=== PATIENT | male | born 1935 | race Caucasian/White ===

== ENCOUNTER 2016-12-19 13:41 | Outpatient (CLI) | payer OTHER ==
[2016-12-19 14:48] LABS: CREATININE 0.8 mg/dL (0.7-1.3); GLOMERULAR FILTRATION RATE > 60
[2016-12-19] MEDS ORDERED: GADOBUTROL 10 ML VIAL IVP ONE (15:08)
[2016-12-19] MEDS ORDERED: NALOXONE HCL 0.4 MG/ML INJ ONE (15:09)
[2016-12-19] MEDS ORDERED: FLUMAZENIL 0.5 MG/5 ML MDV IVP ONE (15:09)
[2016-12-19] MEDS ORDERED: fentaNYL 100 MCG/2 ML INJ ONE (15:10)
[2016-12-19] MEDS ORDERED: MIDAZOLAM 2 MG/2 ML VIAL ONE (15:10)
[2016-12-19] MEDS ORDERED: ONDANSETRON 4 MG/2 ML VIAL IVP PRN (19:17)
== END 2016-12-19 18:50 | disposition home or self-care (01) ==
LOC: FIMAGING 13:41
PROVIDERS: ATTEND Neurological Surgery
DX: G20 Parkinson's disease (principal); R25.1 Tremor, unspecified; J01.00 Acute maxillary sinusitis, unspecified
CPT/HCPCS: 70552; A9585; J2250; J3010; J2310

== ENCOUNTER → 2016-12-27 | Day surgery (SDC) | payer OTHER ==
[~2016-12-27] MED LIST: ALBUMIN 5% 250 ML BOTTLE IV ONE; BACITRACIN 50,000 UNITS/10 ML SYR IRR ONE; BUPIVACAINE/EPI 0.25% 30 ML SDV ONE; CEFUROXIME 1,500 MG in NS 50 ML IV ONE; DEXAMETHASONE 4 MG/ML VIAL ONE; DEXMEDETOMIDINE HCL 200 MCG/2 ML VIAL IV ONE; ENALAPRILAT DIHYDRATE 1.25 MG/ML VIAL ONE; GLYCOPYRROLATE 0.2 MG/1 ML VIAL ONE; LIDOCAINE 2% 5 ML SDV ONE; ONDANSETRON 4 MG/2 ML VIAL ONE; PROPOFOL/EMULSION 500 MG/50 ML BOTTLE IV ONE; THROMBIN (BOVINE) 20,000 UNIT VIAL TP ONE; fentaNYL 100 MCG/2 ML INJ ONE; hydrALAZINE 20 MG/ML VIAL ONE
== END | disposition home or self-care (01) ==
LOC: UNDOADMIN 06:04 → FSGY 06:04 → F3N 06:04 → EDSTATUS 07:15
PROVIDERS: ATTEND Neurological Surgery
DX: G20 Parkinson's disease (principal); Z53.9 Procedure and treatment not carried out, unspecified reason
CPT/HCPCS: J0360; J0697; J1100; J2405; J2704; J3010; P9041

== ENCOUNTER 2016-12-28 05:40 | Observation (INO) | payer OTHER ==
[2016-12-28] MEDS ORDERED: CEFUROXIME 1,500 MG in NS 50 ML IV ONE (06:00)
[2016-12-28] MEDS ORDERED: ALBUMIN 5% 250 ML BOTTLE IV ONE (06:22)
[2016-12-28] MEDS ORDERED: LIDOCAINE 1% 2 ML INJ ONE (06:24)
[2016-12-28] MEDS ORDERED: THROMBIN (BOVINE) 20,000 UNIT VIAL TP ONE (06:42)
[2016-12-28] MEDS ORDERED: LIDOCAINE 1% 5 ML SDV ID PRN (06:56)
[2016-12-28] MEDS ORDERED: LR 1,000 ML IV ONE (06:56)
[2016-12-28 07:01] LABS: INR 0.96 (0.83-1.16); PROTIME(PATIENT) 12.7 SEC (12.0-15.0)
[2016-12-28] MEDS ORDERED: ENALAPRILAT DIHYDRATE 1.25 MG/ML VIAL ONE (07:13)
[2016-12-28] MEDS ORDERED: niCARdipine/NACL 200 ML IV SCH (07:30)
[2016-12-28] MEDS ORDERED: ENALAPRILAT DIHYDRATE 1.25 MG/ML VIAL IVP ONE (07:30)
[2016-12-28] MEDS ORDERED: BACITRACIN 50,000 UNITS/10 ML SYR IRR ONE (07:41)
[2016-12-28] MEDS ORDERED: RANITIDINE 50 MG/2 ML VIAL ONE (08:04)
[2016-12-28] MEDS ORDERED: ONDANSETRON 4 MG/2 ML VIAL IVP PRN (08:15)
[2016-12-28] MEDS ORDERED: BISACODYL 10 MG SUPP PR PRN (08:15)
[2016-12-28] MEDS ORDERED: POLYETHYLENE GLYCOL 3350 17 GM PKT PO PRN (08:15)
[2016-12-28] MEDS ORDERED: ACETAMINOPHEN 325 MG TAB PO PRN (08:15)
[2016-12-28] MEDS ORDERED: LACTULOSE 20 GM/30 ML UDCUP PO PRN (08:15)
[2016-12-28] MEDS ORDERED: HYDROmorphONE/DILAUDID 1 MG/ML SYR IVP PRN (08:15)
[2016-12-28] MEDS ORDERED: NS W/ 20 KCl/L 1,000 ML IV SCH (08:15)
[2016-12-28] MEDS ORDERED: MAGNESIUM HYDROXIDE 30 ML UDCUP PO PRN (08:15)
[2016-12-28] MEDS ORDERED: HYDROCODONE/APAP 5/325 TAB PO PRN (08:19)
[2016-12-28] MEDS ORDERED: NON-FORMULARY NEW DRUG (Metformin Hcl [Metformin Hcl Er] 1,000 MG) PO SCH (09:00)
--- NOTE | 2016-12-28 11:36 | GPN ---
[f rep st] PROCEDURE NOTE DATE OF PROCEDURE: 12/28/2016 PREOPERATIVE DIAGNOSIS: Parkinson disease. POSTOPERATIVE DIAGNOSIS: Parkinson disease. PROCEDURE PERFORMED: Intraoperative functional subcortical mapping by microelectrode recording and stimulation. COMPLICATIONS: None. INDICATIONS FOR PROCEDURE: Determination of optimal electrode lead placement for deep brain stimula tion therapy for Parkinson disease to the STN. DESCRIPTION OF PROCEDURE: A mainor hole was drilled on the left side and incision made. The arch was then arranged with coordinates calculated from the MRI and CT scan of the head. X is 111.5, Y 93.5 , Z 124.0, ring 73, arch 119.2. A central and anterior microelectrode was then slowly advanced into the brain. There was evidence of the anterior tract entering STN at 6.4 above target. There was c hange with passive range of motion of the shoulder with stimulation at 5.3 above target. We exited STN in the anterior tract at approximately 1 below target and entered the substantia nigra. For the central tract, we had evidence of entering STN at 3.5 and exited STN at 1 below target. Due to the excellent recordings, we then proceeded with macro stimulation. The patient had no side effects up to 4.2. We then placed the lead and proceeded with test stimulation. At 0 negative, the patient h ad no side effects up to 3.5. At 1 negative, the patient had no side effects up to 3.5. At 2 negat marci, the patient had no side effects up to 3.5. At 3 negative, the patient had no side effects up t o 3.5. There was evidence of improved hand movements at 1 negative at 2.0 amplitude. Due to the mi croelectrode recordings obtained and test stimulation, we elected to place the lead at this location at the anterior tract with the bottom of the lead at target. /[id number]/MODL
[2016-12-28] MEDS ORDERED: hydrALAZINE 20 MG/ML VIAL ONE (12:51)
--- NOTE | 2016-12-28 13:19 | POSTOPPROG ---
Post Op Note Date of Operation: 12/28/16 Surgeon: Jennifer Miller Acquisition Lead: Leslie Osborne PA-C Anesthesia: IV Sedation Pre-op Diagnosis: Parkinson's Post-op Diagnosis: Parkinson's Procedure: Left STN DBS lead placement Inf/Abcess present in the surg proc area at time of surgery?: No Depth: Deep Incisional (Fascial) EBL: Minimal Complications: none A/P Assessment: 81 yo male s/p left STN DBS lead placement Plan: - neuro checks - pain contol - postop head CT pending - maintain SBP < 140, hydralazine ordered prn. If uncontrolled, will need to be transferred to SDU for nicardipine drip - PT/OT - dispo: hopefully home tomorrow Exam Opens eyes to voice. PERRL Moving all extremities Incision with dressing c/d/i
--- NOTE | 2016-12-28 13:37 | GOP ---
[f rep st] OPERATIVE REPORT DATE OF OPERATION: 12/28/2016 SURGEON: Jennifer Miller DO NEUROSURGEON: Jennifer Miller DO. LOCOMOTIVE OILER: None. PREOPERATIVE DIAGNOSIS: Idiopathic Parkinson disease. POSTOPERATIVE DIAGNOSIS: Idiopathic Parkinson disease. PROCEDURE PERFORMED: 1. Left deep brain stimulator lead placement with Medtronic 3389 lead to STN nucleus. 2. Stealth stereotaxis. 3. Impedances. FINDINGS: SPECIMENS: None. ESTIMATED BLOOD LOSS: 20 mL. INDICATIONS: This is an 81-year-old male with idiopathic Parkinson disease who underwent a multidis ciplinary team evaluation and was found to be a good candidate for staged STN deep brain stimulation . DESCRIPTION OF PROCEDURE: He was identified, consented, sites were marked, brought to the operating room, anesthetized under local with MAC. Hair was clipped with the OR clippers and was cleansed wi th ChloraPrep using bacitracin ointment. On the pin sites, we anesthetized the Leksell pin sites wi th 0.25% Marcaine with epinephrine, placed the Leksell frame stereotactically, took him downstairs, performed a Leksell stereotactic CT with a localizer box, brought him back upstairs, and merged it w ith the preoperative plan. The AC-PC distance was 28.72. The Stealth CT localizer box target was an X of -12.06, a Y of -2.82, and a Z of -3.79. Entry point of X of -53.23, a Y of 37.43, and a Z of 61.01. This corresponded to 32.4 degrees off midsagittal, 58.2 degrees off midaxial. This coordinated with a Leksell frame coordinates of 111.5 X, Y 93.5, Z 124, ring 73 degrees, arc 119.1 degrees. This was the predicted 0.6 mm. We then placed the O-arm and the Stealth stereotactic box and performed an O-arm 2 spin for registration. This cr eated an X of -12.13, a Y of -2.84, and a Z of -3.89 with also the predicted error of and a Leksell frame coordinates of 111.5 on the X, Y of 93.5, Z of 124, ring of 73, and arc of 119.2. We elected to use the O-arm to spin coordinates. All pressure points were appropriately padded, and the Leksell frame had been connected. He was pre pped and draped in the usual sterile fashion. All Leksell frame coordinates were set and triple marin cked by all providers in the room. Incision site was marked using the Leksell frame coordinates and a half-henderson incision was anesthetized with 0.25% Marcaine with epinephrine. Incision was made with a 10 blade. Hemostasis was obtained with bipolar cautery and Coleen clips. We used a periosteal el evator to elevate the periosteum, open, created a bone jeanne using the Leksell frame coordinates, cre ated a pest control pilot hole, and then a 14 mm bur hole which was waxed, verified to be in appropriate position . A stem lock device was placed using the 5 mm Synthes screws. The clipping device verified the cl ip and lock. We then opened the dura with an 11 blade, coagulating the dura, and then underlying cortex for the c orticotomy. We then placed a center and a 2 mm anterior tract with cannula and stylet, placed Gelfo am and DuraSeal, placed a microelectrode, performed microelectrode recording, got an excellent 6-1/2 , almost 7 mm run on the anterior tract with good driving. Macrostimulation revealed no side effect s. Some control and we elected to leave the lead here with the bottom of the bottom contacted targe t. Again please refer to Leslie Osborne's LULA dictation. We then drove to target, removed the jennifer roelectrode, placed the stylet in the center tract, measured and placed the lead, placed it into the anterior tract, tested each contact. All impedances were good. Tested each contact, got good ther apeutic effect, low-to-no side effects, at multiple contacts, elected to leave the lead here. It wa s difficult to assess tremor; however, we did get improvement of bradykinesia, rigidity. Low-to-no side effects. Elected to leave the lead here. Retracted the cannula, locked it into place using th e clipping mechanism, clipped and locked the device. Brought the stylet out, brought it down and ou t the cannula, placed it into the groove. Performed a stereotactic spin and at some point, there wa s migration. Elected to pull the lead back slightly as it had migrated deep, approximately 3 mm. T ook an x-ray, removed the cap, opened the lead under fluoro, pulled the lead back 3 mm, measured thi s, locked the cap again, took another spin and it was in a better position. Placed the cap, locked it, copiously irrigated with over a liter of bacitracin-infused saline. Placed the boot over the le ad extension, placed the extension, locked the lead extension, brought the boot over the lead extens ion complex, and tied into position with 2-0 silk ties in 2 positions. Tunneled posterior with the periosteal elevator and then anesthetized the stab incision posteriorly with 0.25% Marcaine with epi nephrine. Tunneled posterior to anterior, brought the extension out, coiled it around the lead and clipped it at the skin, copiously irrigated again with over a liter of saline, closed the galea with 2-0 Vicryl pop-offs. The skin was closed with a 3-0 running nylon. The wound was dressed with Xer oform gauze and Telfa stapled down. The frame was removed. The final spin reveal the lead in good position as relative to the anterior plan. There were no complications. LULA: Leslie Osborne PA-C. Please refer to her dictation for all LULA data. FLUIDS: 300 mL crystalloid. URINE OUTPUT: 350 mL. DRAINS: None. COMPLICATIONS: None. /[id number]/MODL
[2016-12-28] MEDS ORDERED: CEFUROXIME 1,500 MG in NS 50 ML IV SCH (14:00)
[2016-12-28] MEDS ORDERED: CARBIDOPA/LEVODOPA 25 MG/100 MG TAB PO SCH (16:00)
[2016-12-28 16:02] VITALS: RESP 16
[2016-12-28] MEDS: LISINOPRIL 10 MG TAB PO SCH (16:21)
[2016-12-28] MEDS: METOPROLOL SUCCINATE XR 50 MG TAB PO SCH (16:21)
[2016-12-28] MEDS: MULTIVITAMINS 1 EACH TAB PO SCH (16:22)
[2016-12-28] MEDS: SENNOSIDES/DOCUSATE SODIUM TAB PO SCH ×2 (16:22→20:48)
[2016-12-28] MEDS: PANTOPRAZOLE SODIUM 40 MG TAB PO SCH (16:22)
[2016-12-28] MEDS: CEFUROXIME 1,500 MG in NS 50 ML IV SCH ×2 (16:54→16:58)
[2016-12-28] MEDS: CARBIDOPA/LEVODOPA 25 MG/100 MG TAB PO SCH (18:20)
[2016-12-28] MEDS ORDERED: NON-FORMULARY NEW DRUG (Metformin Hcl [Metformin Hcl Er] 500 MG) PO SCH (21:00)
[2016-12-28] MEDS ORDERED: ATORVASTATIN CALCIUM 40 MG TAB PO SCH (21:00)
[2016-12-28] MEDS ORDERED: metFORMIN SR 500 MG TAB PO SCH (21:00)
[2016-12-29] MEDS: hydrALAZINE 20 MG/ML VIAL IVP PRN ×2 (01:13→07:13)
[2016-12-29] MEDS: METOPROLOL SUCCINATE XR 50 MG TAB PO SCH (03:56)
--- NOTE | 2016-12-29 07:08 | NEUSURGPN ---
Date of Surgery: 12/28/16 Post Op Day: 1 Assessment/Plan: Assessment: 81 yo male s/p left STN DBS lead placement POD #1 Plan: -s/p DBS placement: doing well this am with minimal complaints -pt had double vision after surgery last night and CT was done that showed no acute ICB -neuro checks -continue current pain contol -maintain SBP < 140, hydralazine ordered prn. If uncontrolled, will need to be transferred to SDU for nicardipine drip -PT/OT-once cleared this am we are planning to remove dressing and dc home -dispo: hopefully home later today -pt and understand and agree -seen by Dr Miller Subjective: Awake and alert. NAD. Eating/drinking and voiding. No f/c/n/v/d. Objective: AAO x 3, PERRLA/EOMI no droop follows all commands CDI Moving all extremities Incision with dressing Neuro Check Frequency: per routine Urinary Catheter in Place: No Catheter Insertion Date: 12/28/16 - Physician Discussed Patient with : Paul Patient Seen by : Paul Neurosurgery Physical Exam - Vitals, I&O, Labs I and O 12/28/16 12/29/16 12/30/16 05:59 05:59 05:59 Intake Total 700 Output Total 820 Balance -120 Weight 68.039 kg 68.039 kg Intake: Oral (ml) 700 Output: Urine (ml) 800 Urinal 800 Estimated Blood Loss (ml) 20 Other: Intake Quantity Yes Sufficient Number of Voids Incontinence 1 Urinal 2 Vital Signs Temp Pulse Resp BP Pulse Ox 36.8 C 61 16 149/60 H 98 12/29/16 03:32 12/29/16 03:56 12/29/16 00:00 12/29/16 03:56 12/29/16 03:32 ICD10 Worksheet Patient Problems: Problems Problem Status Onset S/P deep brain stimulator placement Acute - ICD10 Problem Qualifiers (1) S/P deep brain stimulator placement
[2016-12-29] MEDS ORDERED: CARBIDOPA/LEVODOPA 25 MG/100 MG TAB PO SCH (08:00)
[2016-12-29] MEDS: LISINOPRIL 10 MG TAB PO SCH (08:34)
[2016-12-29] MEDS: MULTIVITAMINS 1 EACH TAB PO SCH (08:35)
[2016-12-29] MEDS: SENNOSIDES/DOCUSATE SODIUM TAB PO SCH (08:35)
[2016-12-29] MEDS: PANTOPRAZOLE SODIUM 40 MG TAB PO SCH (08:35)
[2016-12-29] MEDS ORDERED: metFORMIN SR 500 MG TAB PO SCH (09:00)
[2016-12-29 11:17] VITALS: BP 159/61; PULSE 62; TEMP 98.3; O2SAT 90
[2016-12-29] MEDS ORDERED: CEFUROXIME 1,500 MG in NS 50 ML IV ONE (12:00)
--- NOTE | 2016-12-29 12:51 | PDIAF ---
- Diagnosis Diagnosis: s/p lead placement for DBS Code Status: Full Code - Medication Management Discharge Medications: Medications to Continue on Transfer Atorvastatin Calcium [Lipitor 40 mg (*)] 40 mg PO HS 08/31/16 [Last Taken ] Carbidopa/Levodopa [Carbidopa-Levodopa 25-100 Tab] 1 each PO TID@08,,18 [Last Taken 12/27/16 20:00] Herbals/Supplements -Info Only 1 ea PO DAILY 08/31/16 [Last Taken 12/18/16] Lisinopril [Zestril 10 mg (*)] 10 mg PO DAILY 08/31/16 [Last Taken 12/18/16] Melatonin [Melatonin 3 MG (*)] 10 mg PO HS 08/31/16 [Last Taken 12/18/16] Metformin HCl [Metformin HCl ER] 1,000 mg PO DAILY 08/31/16 [Last Taken 12/25/16 ] Metformin HCl [Metformin HCl ER] 500 mg PO HS 08/31/16 [Last Taken 12/25/16] Metoprolol Succinate Xr [Toprol Xl 50 mg (*)] 50 mg PO DAILY 08/31/16 [Last Taken 12/27/16 15:00] Multivitamins [Multivitamin (*)] 1 each PO DAILY 08/31/16 [Last Taken 12/18/16] Pantoprazole Sodium [Protonix 40mg (*)] 40 mg PO DAILY 08/31/16 [Last Taken 09/24] rOPINIRole HCL [Requip 2mg (*)] 6 mg PO DAILY@13 08/31/16 [Last Taken 12/27/16] Carbidopa/Levo Cr 50/200Mg [SINEMET CR 50/200 MG (*)] 1 tab PO TID@,,18 [Last Taken 12/27/16 20:00] rOPINIRole HCL [Requip 1mg (*)] 3 mg PO HS 12/28/16 [Last Taken 12/27/16] Acetaminophen [Tylenol 325mg (*)] 650 mg PO Q4HRS PRN #0 tab 12/29/16 [Last Taken Unknown] Carbidopa/Levodopa 25/100Mg [Sinemet 25/100 MG (*)] 2 tab PO DAILY@1300,1800 #0 tab 12/29/16 [Last Taken Unknown] Hydrocodone/APAP 5/325 [[place] 5/325 (*)] 1 - 2 tab PO Q4HRS PRN #30 tab [Last Taken Unknown] Sennosides/Docusate Sodium [Senokot-S] 1 - 2 tab PO BID #30 tab 12/29/16 [Last Taken Unknown] rOPINIRole HCL [Requip 2mg (*)] 2 mg PO HS #0 tab 12/29/16 [Last Taken Unknown] [employer]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 PICC Care - Routine: N/A - Orders Services needed: Registered Nurse, Physical Therapy, Occupational Therapy Oxygen: to keep O2 sat more than 90% Diet Recommendation: no restrictions on diet Diet Texture: Regular Texture Diet Wound Care Instructions: Recheck in [address] Cotter team - Follow Up Care Current Providers and Referrals: Jennifer Miller DO [Doctor of Osteopathy] - (follow up in 2-3 weeks) Etienne Zheng MD [Primary Care Provider] -
[2016-12-29] MEDS: CARBIDOPA/LEVODOPA 25 MG/100 MG TAB PO SCH (13:15)
== END 2016-12-29 14:21 | disposition home health service (06) ==
LOC: INTOOBSV 05:40 → F3N 05:40
PROVIDERS: ADMIT Neurological Surgery; ATTEND Neurological Surgery
PROC: 00K03ZZ Map Brain, Percutaneous Approach (ICD-10-PCS; 2016-12-28)
PROC: 8E09XBF Computer Assisted Procedure of Head and Neck Region, With Fluoroscopy (ICD-10-PCS; 2016-12-28)
PROC: 00H03MZ Insertion of Neurostimulator Lead into Brain, Percutaneous Approach (ICD-10-PCS; principal; 2016-12-28 07:30)
DX: G20 Parkinson's disease (principal); I25.10 Atherosclerotic heart disease of native coronary artery without angina pectoris; E11.9 Type 2 diabetes mellitus without complications; E78.5 Hyperlipidemia, unspecified; I10 Essential (primary) hypertension; G47.33 Obstructive sleep apnea (adult) (pediatric); G25.81 Restless legs syndrome; Z95.1 Presence of aortocoronary bypass graft; Z85.46 Personal history of malignant neoplasm of prostate; Z95.5 Presence of coronary angioplasty implant and graft; Z79.84 Long term (current) use of oral hypoglycemic drugs; Z82.49 Family history of ischemic heart disease and other diseases of the circulatory system
CPT/HCPCS: 61867; 70450; 76001; 97116; 97162; 97166; C1713; G8978; G8979; G8987; G8988; J0360; J0697; J2780; P9041

== ENCOUNTER 2017-01-25 05:47 | Observation (INO) | payer OTHER ==
[2017-01-25] MEDS ORDERED: CEFUROXIME 1,500 MG in NS 50 ML IV ONE (06:00)
[2017-01-25] MEDS ORDERED: BUPIVACAINE/EPI 0.25% 30 ML SDV ONE (06:30)
[2017-01-25] MEDS ORDERED: BACITRACIN 50,000 UNITS/10 ML SYR IRR ONE (06:30)
[2017-01-25] MEDS ORDERED: THROMBIN (BOVINE) 20,000 UNIT VIAL TP ONE (06:30)
[2017-01-25 06:43] LABS: % IMMATURE GRANULYOCYTES 0.7 % (0.0-1.1); ABSOLUTE IMMATURE GRANULOCYTES 0.04 10^3/uL (0.00-0.10); ADD DIFF? NO; ADD MORPH? NO; ADD SCAN? NO; ATYPICAL LYMPHOCYTE FLAG 10 (0-99); FRAGMENT RBC FLAG 0 (0-99); HEMATOCRIT 35.4 % (40.0-51.0); HEMOGLOBIN 12.4 g/dL (13.7-17.5); LEFT SHIFT FLG 0 (0-99); LIPEMIA HEMOLYSIS FLAG 90 (0-99); MEAN CELL HEMOGLOBIN 30.4 pg (27.9-34.1); MEAN CELL VOLUME 86.8 fL (81.5-99.8); MEAN PLATELET VOLUME 8.9 fL (8.7-11.7); PLATELET CLUMPS FLAG 0 (0-99); PLATELET COUNT 156 10^3/uL (150-400); RED BLOOD CELL COUNT 4.08 10^6/uL (4.40-6.38); RED CELL DISTRIBUTION WIDTH 13.7 % (11.5-15.2)
[2017-01-25 06:48] LABS: APTT 30.4 SEC (23.0-38.0); INR 1.05 (0.83-1.16); PROTIME(PATIENT) 13.6 SEC (12.0-15.0)
[2017-01-25] MEDS ORDERED: ENALAPRILAT DIHYDRATE 1.25 MG/ML VIAL ONE ×2 (07:05→08:15)
[2017-01-25] MEDS ORDERED: DEXMEDETOMIDINE HCL 200 MCG/2 ML VIAL IV ONE (07:20)
[2017-01-25] MEDS ORDERED: fentaNYL 100 MCG/2 ML INJ ONE ×2 (07:20→09:56)
[2017-01-25] MEDS ORDERED: PROPOFOL/EMULSION 500 MG/50 ML BOTTLE IV ONE (07:20)
[2017-01-25] MEDS ORDERED: ENALAPRILAT DIHYDRATE 1.25 MG/ML VIAL IVP ONE (07:30)
[2017-01-25] MEDS ORDERED: niCARdipine/NACL 200 ML IV SCH (07:30)
[2017-01-25] MEDS ORDERED: LIDOCAINE 1% 5 ML SDV ID PRN (07:31)
[2017-01-25] MEDS ORDERED: LR 1,000 ML IV ONE (07:31)
[2017-01-25] MEDS ORDERED: epHEDrine SULFATE 10 MG/ML SYR ONE (08:15)
[2017-01-25] MEDS ORDERED: ONDANSETRON 4 MG/2 ML VIAL ONE (08:15)
[2017-01-25] MEDS ORDERED: LIDOCAINE 2% 5 ML SDV ONE (08:15)
[2017-01-25] MEDS ORDERED: hydrALAZINE 20 MG/ML VIAL ONE ×2 (08:15→12:16)
[2017-01-25] MEDS ORDERED: RANITIDINE 50 MG/2 ML VIAL ONE (09:43)
[2017-01-25] MEDS ORDERED: POLYETHYLENE GLYCOL 3350 17 GM PKT PO PRN (09:57)
[2017-01-25] MEDS ORDERED: ONDANSETRON 4 MG/2 ML VIAL IVP PRN (09:57)
[2017-01-25] MEDS ORDERED: HYDROmorphONE/DILAUDID 1 MG/ML SYR IVP PRN (09:57)
[2017-01-25] MEDS ORDERED: LACTULOSE 20 GM/30 ML UDCUP PO PRN (09:57)
[2017-01-25] MEDS ORDERED: MAGNESIUM HYDROXIDE 30 ML UDCUP PO PRN (09:57)
[2017-01-25] MEDS ORDERED: ACETAMINOPHEN 325 MG TAB PO PRN (09:57)
[2017-01-25] MEDS ORDERED: BISACODYL 10 MG SUPP PR PRN (09:57)
[2017-01-25] MEDS ORDERED: NS W/ 20 KCl/L 1,000 ML IV SCH (10:00)
[2017-01-25] MEDS ORDERED: HYDROCODONE/APAP 5/325 TAB PO PRN (10:01)
--- NOTE | 2017-01-25 12:02 | POSTOPPROG ---
Post Op Note Date of Operation: 01/25/17 Surgeon: Jennifer Miller Clinical Research Technician: Leslie Osborne PA-C Anesthesia: GET(General Endotracheal) Pre-op Diagnosis: Parkinson's disease Post-op Diagnosis: Parkinson's disease Procedure: Right STN DBS lead placement Inf/Abcess present in the surg proc area at time of surgery?: No Depth: Deep Incisional (Fascial) EBL: Minimal Plan Plan: 81 yo male s/p right STN DBS lead placement - neuro checks - pain control - advance diet as tolerated - postop head CT pending - maintain SBP < 140 - PT/OT - plan for discharge tomorrow Exam Awake. Alert Following commands Strength full
--- NOTE | 2017-01-25 12:28 | GPN ---
[f rep st] PROCEDURE NOTE DATE OF PROCEDURE: 01/25/2017 PREOPERATIVE DIAGNOSIS: Parkinson's disease. POSTOPERATIVE DIAGNOSIS: Parkinson's disease. PROCEDURE PERFORMED: Intraoperative functional subcortical mapping by microelectrode recording and stimulation. COMPLICATIONS: None. INDICATIONS FOR PROCEDURE: Determination of optimal electrode lead placement for deep brain stimulation therapy for Parkinson's disease to the STN. DESCRIPTION OF PROCEDURE: An incision was made and a mainor hole was drilled on the right side. The arch was then arranged with coordinates calculated from the MRI and CT scan of the head. X is 85.5, Y 91.5, Z 117.5, ring 72, arch 72.6. We ran a central and posterior tract. The microelectrode was slowly advanced into the brain with evidence of cells in the posterior tract at 13 above and center tract at 10 above. There was evidence of entering STN in the center tract at 3 above target. There was change with stimulation with passive range of motion of the shoulder and elbow extension at 2.3 above target in the center tract. At 1.5 below target, we exited STN and entered SNR at 3 below target. There was no evidence of entering STN in the posterior tract. We then proceeded with macro stimulation utilizing the center tract at 1 above target. The patient had tingling in his left hand at 3.5. We decided to map out an anterior tract. There was evidence of entering STN at 4.5; however, exited shortly after. With the microelectrode recordings obtained, we felt that the center tract was the best tract, and then proceeded with test stimulation. Lead was placed. Impedance was checked. The lead was placed at the bottom of the lead at 1.5 below target. At 0 negative, the patient had persistent tingling in the left hand at 2.0 amplitude. At 1 negative, the patient had tingling in the left hand at 3.5 amplitude, with improved bradykinesia and tremor control. At 2 negative, the patient had transient left hand tingling at 3.0 amplitude. At 3 negative, he had no side effects up to 3.5. Due to the microelectrode recordings obtained and test stimulation, we elected to place the lead at this location at 1.5 below target at the center tract. The patient tolerated the surgery well, without complications, and was transferred to the floor. /[id number]/MODL MTDD
--- NOTE | 2017-01-25 13:07 | GOP ---
[f rep st] OPERATIVE REPORT DATE OF OPERATION: 01/25/2017 SURGEON: Jennifer Miller DO PREOPERATIVE DIAGNOSIS: Parkinson's. POSTOPERATIVE DIAGNOSIS: Parkinson's. PROCEDURE PERFORMED: 1. Right deep brain stimulator lead placement with Medtronic 3389 lead to the subthalamic nucleus. 2. Stealth stereotaxis. 3. Microelectrode recording was done by KEZIA Charles. FINDINGS: SPECIMENS: None. ESTIMATED BLOOD LOSS: 20 mL. INDICATIONS: This is an 81-year-old male with a left-sided deep brain stimulator lead placed approx imately 1 month ago, who returns for the right-sided staged lead placement. DESCRIPTION OF PROCEDURE: He was identified, consented. Sites were marked. He was brought to the operating room, anesthetized under local with MAC. Hair was clipped with the OR clippers. Head was cleansed with ChloraPrep. Pin sites were anesthetized with 0.5% Marcaine with epinephrine. Pins w ere dipped in povidone iodine, and the Leksell frame was placed in a stereotactic fashion. He was t aken downstairs, and a stereotactic CT was performed with a localizer box. He was brought back upst airs. This was registered. The target mirrored from the other side was an AC-PC of 28.73 and X of 11.55, a Y of -2.44, and a Z of -4.84. Entry points were an X of 38.19, a Y of 36.16, a Z of 50.44. This corresponded to 25.7 degrees off mid sagittal, 55.1 degrees off mid axial. We then performed a stereotactic 0-arm 2 spin with frame coordinates, and both frame coordinates were fairly similar. We went with the O arm registration. This corresponded to Lekyell frame coordinates of an X of 85 .5, a Y of 91.5, a Z of 117.5, a ring of 72 degrees, an arc of 72.6 degrees. These were all set and triple checked by all providers in the room. He was prepped and draped in the usual sterile fashio n. Incision was marked using the cannula and anesthetized with 0.25% Marcaine with epinephrine. Alexander lf-henderson incision was made. Hemostasis was obtained with bipolar and Coleen clips. We used a periost eal elevator to elevate the periosteum. Oil Field Worker hole was created where the cannula entry point was fo und using Leksell frame coordinates, and then a 14 mm bur hole was performed. Edges were waxed. e Navigus Stimloc device was locked into place using 5 mm Synthes screws. The clipping device was v erified to clip and lock. We opened the dura sharply with an 11 blade. Hemostasis was obtained wit h bipolar cautery. Then introduced a center posterior track, and performed microelectrode recording . Please refer to Leslie Osborne's dictation for all microelectrode recordings. We got a good run with the center track of approximately 4.5 mm of STN with Macrostim, 1 above target with low to no side effects. We did elect to do an anterior track, just to see if we could get a slightly better t rack. So, we drove back up to the top, removed the posterior cannula, replaced it in the anterior t rack, and performed an anterior track. Please again refer. We did not get good STN here and electe d to test the lead here, so we elected to leave the bottom of the bottom contact at 1-1/2 below targ et, and based upon LULA, we then drove to this space, removed the microelectrode, measured and placed the 3389 lead. The lead was then tested for impedances at all contacts, and we tested all contacts . We had excellent programmable lead with low to no side effects and good stimulation effect. We e lected to leave it here, took an x-ray with the bombsights, gently placed the clipping and locking m echanism after having removed the cannula, took another x-ray. The lead had not migrated, locked it into place, removed the stylet, brought the lead down and out, placed it into the groove, placed a cap over the lead, and marked it. Took another x-ray. It had not migrated. Placed the boot over t he lead, placed extension over the lead, protecting each contact. Using the torque wrench, locked i t down. Brought the boot over the lead extension complex, tied into position with 2-0 silk ties at 2 positions. Tunneled posteriorly with the periosteal elevator, anesthetized the stab incision with 0.25% Marcaine with epinephrine. Made a stab incision posterior, tunneled posterior to anterior. Brought the lead extension down and out, cut it at the skin, coiled the lead posterior and around e incision. Took another x-ray of the bombsight. it had not migrated. Performed a stereotactic O- arm spin for lead localization and accuracy. Then, copiously irrigated with over a liter of normal saline. Closed the subcutaneous, galea with 2-0 Vicryl pop-offs. The skin was closed with 3-0 runn ing nylon. The wound was dressed with Xeroform and Telfa stapled down. The frame was removed. Hea d wrap was placed. Patient tolerated procedure well. No complications. FLUIDS: 400 mL crystalloid. URINE OUTPUT: 275 mL. COMPLICATIONS: None. DRAINS: None. /[id number]/MODL
[2017-01-25] MEDS: hydrALAZINE 20 MG/ML VIAL IVP PRN ×2 (14:05→17:02)
[2017-01-25] MEDS: CARBIDOPA/LEVO CR 50 MG/200 MG TAB PO SCH (17:09)
[2017-01-25] MEDS: CEFUROXIME 1,500 MG in NS 50 ML IV SCH (17:10)
[2017-01-25] MEDS ORDERED: NITROGLYCERIN 0.4 MG BTL SL PRN (17:44)
[2017-01-25] MEDS: CARBIDOPA/LEVODOPA 25 MG/100 MG TAB PO SCH (18:01)
--- NOTE | 2017-01-25 20:25 | HOSPPROG ---
Hospitalist Progress Note Assessment/Plan: STAT team called by RN for possible changes in neuro status. I responded. Mr. Suresh is a 81 yo male with h/o Parkinson's disease who underwent left deep brain stimulator lead placed one month ago and was admitted today for right deep brain stimulator lead placement. Post-operatively, his RN was concerned he had a change in his pupil size and decreased mentation. Upon my evaluation, he is awake, alert and oriented. Answers all questions appropriately, though appears a bit tired. Pupils are reactive, left pupil 1 mm larger than right, may be his baseline. There is certainly no pupil dilation or clinical signs of herniation. His vital signs are stable. He is neurologically intact with no new neurodeficits on my exam. Sent for STAT head CT which is unchanged. Discussed case with STAT team members , no other interventions planned. Objective: Vital Signs Temp Pulse Resp BP Pulse Ox 36.6 C 77 16 163/58 H 94 01/25/17 19:26 01/25/17 19:26 01/25/17 19:26 01/25/17 19:26 01/25/17 19:26 Laboratory Results 01/25/17 06:25 01/24/17 01/25/17 01/26/17 05:59 05:59 05:59 Intake Total 1000 Output Total 550 Balance 450 PT 13.6 SEC (12.0-15.0) 01/25/17 06:25 INR 1.05 (0.83-1.16) 01/25/17 06:25 ICD10 Worksheet Patient Problems: Problems Problem Status Onset S/P deep brain stimulator placement Acute
[2017-01-25] MEDS: SENNOSIDES/DOCUSATE SODIUM TAB PO SCH (20:34)
[2017-01-25] MEDS ORDERED: OXYBUTYNIN 5 MG EXT REL TAB PO SCH (21:00)
[2017-01-25] MEDS ORDERED: ATORVASTATIN CALCIUM 40 MG TAB PO SCH (21:00)
[2017-01-25] MEDS ORDERED: NON-FORMULARY NEW DRUG (Metformin Hcl [Metformin Hcl Er] 500 MG) PO SCH (21:00)
[2017-01-25] MEDS ORDERED: metFORMIN SR 500 MG TAB PO SCH (21:00)
[2017-01-26] MEDS: CEFUROXIME 1,500 MG in NS 50 ML IV SCH (00:27)
[2017-01-26] MEDS: hydrALAZINE 20 MG/ML VIAL IVP PRN ×2 (00:27→12:56)
[2017-01-26 08:15] VITALS: RESP 16
[2017-01-26] MEDS: SENNOSIDES/DOCUSATE SODIUM TAB PO SCH (08:22)
[2017-01-26] MEDS: CARBIDOPA/LEVODOPA 25 MG/100 MG TAB PO SCH ×2 (08:23→12:55)
[2017-01-26] MEDS: CARBIDOPA/LEVO CR 50 MG/200 MG TAB PO SCH ×2 (08:23→12:55)
--- NOTE | 2017-01-26 08:52 | NEUSURGPN ---
Assessment/Plan: 81 yo male s/p right STN DBS lead placement - neuro checks- stable -repeat head CT last night for vision complaints last night stable - pain control - maintain SBP < 140 - PT/OT - Can dc home later this afternoon if cleared by therapies -Dressing change later today prior to leaving -Discussed with Dr. Miller Subjective: Patient doing well this morning, had a rough night with some restless legs. Denies pain. Objective: NAD, VSS PERRL, EOMI CN II-XII grossly intact BUE/BLE 5/5- some twitching of right foot visualized Incision - dressed Catheter Insertion Date: 01/25/17 - Physician Discussed Patient with : Paul Neurosurgery Physical Exam - Vitals, I&O, Labs I and O 01/25/17 01/26/17 01/27/17 05:59 05:59 05:59 Intake Total 1350 Output Total 800 Balance 550 Weight 72.575 kg Intake: Oral (ml) 800 IV Intake (ml) 500 IV Infused (ml) 50 Cefuroxime 1,500 mg In Ns 50 50 ml @ 200 mls/hr IV Q8H [facility] Rx#:[id number] Output: Urine (ml) 750 Catheter 350 Urinal 400 Estimated Blood Loss (ml) 50 Other: Intake Quantity Yes Sufficient Number of Voids Urinal 1 Post Void Residual Scan Volume (ml) Urinal 136 Vital Signs Temp Pulse Resp BP Pulse Ox 36.8 C 68 16 159/78 H 92 01/26/17 08:14 01/26/17 08:14 01/26/17 08:14 01/26/17 08:14 01/26/17 08:14 Laboratory Results 01/25/17 06:25 ICD10 Worksheet Patient Problems: Problems Problem Status Onset S/P deep brain stimulator placement Acute
[2017-01-26] MEDS ORDERED: NON-FORMULARY NEW DRUG (Metformin Hcl [Metformin Hcl Er] 1,000 MG) PO SCH (09:00)
[2017-01-26] MEDS ORDERED: PANTOPRAZOLE SODIUM 40 MG TAB PO SCH (09:00)
[2017-01-26] MEDS ORDERED: CLOPIDOGREL BISULFATE 75 MG TAB PO SCH (09:00)
[2017-01-26] MEDS ORDERED: metFORMIN SR 500 MG TAB PO SCH (09:00)
[2017-01-26] MEDS ORDERED: MULTIVITAMINS 1 EACH TAB PO SCH (09:00)
[2017-01-26] MEDS ORDERED: LISINOPRIL 10 MG TAB PO SCH (09:00)
[2017-01-26] MEDS ORDERED: ROPINIROLE HCL PO SCH (09:00)
[2017-01-26] MEDS ORDERED: METOPROLOL SUCCINATE XR 50 MG TAB PO SCH (09:00)
[2017-01-26 12:49] VITALS: BP 153/62; PULSE 76; TEMP 97.8; O2SAT 91
[2017-01-28] MEDS ORDERED: ENOXAPARIN 40 MG/0.4 ML SYR SC SCH (09:00)
--- NOTE | 2017-02-07 11:00 | GDS ---
[f rep st] DISCHARGE SUMMARY ADMITTING DIAGNOSIS: Parkinson disease. DISCHARGE DIAGNOSIS: Parkinson disease. PROCEDURE: Right deep brain stimulator lead placement, January 25. HISTORY OF PRESENT ILLNESS: The patient is an 81-year-old male, who presented to the hospital to pr lula with right-sided DBS lead placement. He underwent a left-sided lead placement approximately 1 month ago. He underwent surgery on January [address] Jennifer Miller, with placement of right deep br ain stimulator lead to the STN. He tolerated the surgery well without complications. Postoperative head CT was completed and was negative for any acute intracranial hemorrhage. He was transferred t o the floor for further observation and close neurological checks. He was seen by physical and occu pational therapy. Once he was tolerating a diet, and voiding without difficulty, pain controlled, a nd medically stable, he was deemed suitable for discharge. He was discharged to home on January 26. DISCHARGE INSTRUCTIONS: Patient was asked to follow up with Dr. Jennifer Miller in 2 weeks for suture removal and wound check. DISCHARGE MEDICATIONS: Continue home dose of oxybutynin, nitroglycerin, ropinirole, Protonix, multi vitamin, metformin, metoprolol, melatonin, lisinopril, Sinemet, atorvastatin. Patient was instructe d to start his Plavix and aspirin on postop day 3, which would be January 28. /[id number]/MODL
== END 2017-01-26 14:59 | disposition home or self-care (01) ==
LOC: INTOOBSV 05:47 → F3E 05:47 → F3N 13:29
PROVIDERS: ADMIT Neurological Surgery; ATTEND Neurological Surgery
DX: G20 Parkinson's disease (principal); I10 Essential (primary) hypertension; I25.10 Atherosclerotic heart disease of native coronary artery without angina pectoris; G47.33 Obstructive sleep apnea (adult) (pediatric); E11.9 Type 2 diabetes mellitus without complications
CPT/HCPCS: 61867; 70450; 76001; 97162; 97166; C1713; G8978; G8979; G8980; G8984; G8985; G8986; J0360; J0697; J1200; J2405; J2704; J2780; J3010

== ENCOUNTER 2017-02-22 05:46 | Inpatient (IN) | payer OTHER ==
[2017-02-22] MEDS ORDERED: LIDOCAINE 1% 2 ML INJ ONE (06:08)
[2017-02-22] MEDS ORDERED: BUPIVACAINE/EPI 0.25% 30 ML SDV ONE (06:53)
[2017-02-22] MEDS ORDERED: BACITRACIN 50,000 UNITS/10 ML SYR IRR ONE ×2 (06:54→07:16)
[2017-02-22] MEDS ORDERED: fentaNYL 100 MCG/2 ML INJ ONE (07:01)
[2017-02-22] MEDS ORDERED: PROPOFOL/EMULSION 500 MG/50 ML BOTTLE IV ONE (07:02)
[2017-02-22] MEDS ORDERED: LR 1,000 ML IV ONE (07:23)
[2017-02-22] MEDS ORDERED: LIDOCAINE 1% 5 ML SDV ID PRN (07:23)
[2017-02-22] MEDS ORDERED: ceFAZolin 2 GM/DEXTROSE 100 ML IV ONE (07:30)
[2017-02-22] MEDS ORDERED: ATROPINE SULFATE 1 MG/10 ML SYR ONE (07:59)
[2017-02-22] MEDS ORDERED: ATROPINE SULFATE 1 MG/ML VIAL ONE (08:18)
[2017-02-22 08:39] LABS: ALANINE AMINOTRANSFERASE 27 IU/L (21-72); ANION GAP 18 mEq/L (8-16); ASPARTATE AMINOTRANSFERASE 17 IU/L (17-59); BILIRUBIN,TOTAL 0.4 mg/dL (0.1-1.4); CALCIUM 5.9 mg/dL (8.5-10.4); CHLORIDE 106 mEq/L (97-110); CREATININE 0.2 mg/dL (0.7-1.3); GLOMERULAR FILTRATION RATE > 60; GLUCOSE 40 mg/dL (70-100); MAGNESIUM 0.9 mg/dL (1.6-2.3); POTASSIUM 4.1 mEq/L (3.5-5.2); SODIUM 133 mEq/L (134-144)
[2017-02-22] MEDS ORDERED: EPINEPHrine 1 MG/10 ML SYR IVP ONE ×2 (08:43→12:25)
[2017-02-22] MEDS ORDERED: PHENYLEPHRINE HCL 100 MCG/ML SYR ONE (08:43)
[2017-02-22 08:49] LABS: TROPONIN I < 0.012 ng/mL (0-0.034)
[2017-02-22 08:50] LABS: ALBUMIN < 1.0 g/dL (3.5-5.0); ALKALINE PHOSPHATASE < 20 IU/L (38-126); TOTAL PROTEIN < 2.0 g/dL (6.3-8.2)
[2017-02-22 08:54] LABS: CARBON DIOXIDE 9 mEq/l (22-31)
[2017-02-22] MEDS ORDERED: HEPARIN 10,000 UNIT/10 ML MDV ONE (09:03)
[2017-02-22] MEDS ORDERED: MAGNESIUM SULF 1 GM/DEXTROSE 100 ML BAG IV ONE (09:10)
[2017-02-22 09:14] LABS: INR 2.34 (0.83-1.16); PROTIME(PATIENT) 25.9 SEC (12.0-15.0)
[2017-02-22] MEDS ORDERED: IOPAMIDOL (ISOVUE-370) 150 ML BTL IV ONE (09:18)
[2017-02-22 09:21] LABS: APTT 59.4 SEC (23.0-38.0)
[2017-02-22] MEDS ORDERED: BIVALIRUDIN 250 MG/5 ML VIAL IV ONE ×2 (09:21→09:56)
[2017-02-22 09:27] LABS: % IMMATURE GRANULYOCYTES 0.8 % (0.0-1.1); ABSOLUTE IMMATURE GRANULOCYTES 0.13 10^3/uL (0.00-0.10); ADD DIFF? NO; ADD MORPH? NO; ADD SCAN? NO; ATYPICAL LYMPHOCYTE FLAG 0 (0-99); FRAGMENT RBC FLAG 0 (0-99); HEMATOCRIT 38.8 % (40.0-51.0); HEMOGLOBIN 12.8 g/dL (13.7-17.5); LEFT SHIFT FLG 10 (0-99); LIPEMIA HEMOLYSIS FLAG 80 (0-99); MEAN CELL HEMOGLOBIN 30.6 pg (27.9-34.1); MEAN CELL VOLUME 92.8 fL (81.5-99.8); MEAN PLATELET VOLUME 9.7 fL (8.7-11.7); PLATELET CLUMPS FLAG 0 (0-99); PLATELET COUNT 194 10^3/uL (150-400); RED BLOOD CELL COUNT 4.18 10^6/uL (4.40-6.38); RED CELL DISTRIBUTION WIDTH 14.6 % (11.5-15.2)
[2017-02-22 09:37] LABS: BASE EXCESS -12.5 mEq/L (-2.5-2.5); BICARBONATE 16 mEq/L (22-26); MEASURED OXYGEN SATURATION 93 % (92-95); PCO2 45 mmHg (34-38); PO2 90 mmHg (65-75); TCO2 17 mEq/L (23-27)
[2017-02-22 09:41] LABS: O2 CONCENTRATIION 100 % (0-100); P/F RATIO 90 RATIO
[2017-02-22 09:54] LABS: APTT 39.9 SEC (23.0-38.0); INR 1.3 (0.83-1.16); PROTIME(PATIENT) 16.2 SEC (12.0-15.0)
[2017-02-22 10:07] LABS: ALANINE AMINOTRANSFERASE 79 IU/L (21-72); ALBUMIN 2.7 g/dL (3.5-5.0); ALKALINE PHOSPHATASE 108 IU/L (38-126); ANION GAP 14 mEq/L (8-16); ASPARTATE AMINOTRANSFERASE 252 IU/L (17-59); BILIRUBIN,TOTAL 0.8 mg/dL (0.1-1.4); CALCIUM 7.3 mg/dL (8.5-10.4); CARBON DIOXIDE 16 mEq/l (22-31); CHLORIDE 107 mEq/L (97-110); CREATININE 0.9 mg/dL (0.7-1.3); GLOMERULAR FILTRATION RATE > 60; GLUCOSE 438 mg/dL (70-100); POTASSIUM 4.1 mEq/L (3.5-5.2); TOTAL PROTEIN 4.6 g/dL (6.3-8.2)
[2017-02-22 10:08] LABS: SODIUM 137 mEq/L (134-144)
[2017-02-22 10:24] LABS: BASE EXCESS -6.7 mEq/L (-2.5-2.5); BICARBONATE 19 mEq/L (22-26); MEASURED OXYGEN SATURATION 89 % (92-95); PCO2 42 mmHg (34-38); PO2 67 mmHg (65-75); TCO2 20 mEq/L (23-27)
[2017-02-22 10:27] LABS: P/F RATIO 67 RATIO; PATIENT RATE 10; SIMV YES
[2017-02-22 10:30] LABS: O2 CONCENTRATIION 100 % (0-100)
[2017-02-22] MEDS ORDERED: ONDANSETRON 4 MG/2 ML VIAL IVP PRN (10:36)
[2017-02-22] MEDS ORDERED: ONDANSETRON DISINTEGRATING 4 MG TAB PO PRN (10:36)
[2017-02-22] MEDS ORDERED: PRASUGREL HCL 10 MG TAB PO ONE ×2 (10:36→13:30)
[2017-02-22] MEDS ORDERED: ATROPINE SULFATE 1 MG/10 ML SYR IVP PRN (10:36)
[2017-02-22] MEDS ORDERED: LORazepam 2 MG/ML INJ IVP PRN (10:36)
[2017-02-22] MEDS ORDERED: NS 1,000 ML IV SCH (10:45)
[2017-02-22 10:55] LABS: ALANINE AMINOTRANSFERASE 95 IU/L (21-72); ALBUMIN 2.4 g/dL (3.5-5.0); ALKALINE PHOSPHATASE 119 IU/L (38-126); ANION GAP 15 mEq/L (8-16); ASPARTATE AMINOTRANSFERASE 306 IU/L (17-59); BILIRUBIN,TOTAL 1.2 mg/dL (0.1-1.4); CALCIUM 7.2 mg/dL (8.5-10.4); CARBON DIOXIDE 20 mEq/l (22-31); CHLORIDE 104 mEq/L (97-110); CREATININE 0.9 mg/dL (0.7-1.3); GLOMERULAR FILTRATION RATE > 60; GLUCOSE 426 mg/dL (70-100); MAGNESIUM 1.8 mg/dL (1.6-2.3); POTASSIUM 3.4 mEq/L (3.5-5.2); SODIUM 139 mEq/L (134-144); TOTAL PROTEIN 4.3 g/dL (6.3-8.2)
--- NOTE | 2017-02-22 10:59 | PDDXCAT ---
Diagnostic Cath Note - . Date: 02/22/17 Block Greaser: Lucas Indication: other (Cardiac arrest after anesthesia induction; h/o CAD with prior CABG and PCI) - Procedure Access: right groin (left groin for IABP) Procedure: left heart catheterization, coronary angiography, vein graft injection, WOODRUFF injection, other (PCI of SVG to distal RCA; ) - Materials Left Heart Cath size: 6F Left Heart Cath materials: standard multipack (JL4, JR4, pigtail), Zoran's R - Findings-Left Heart Catheterization LM: Proximal 40%. LAD: Proximal 100%. LCX: Proximal 80 to 90%; small AV groove portion patent but supplies only a few small branches; no patent OM branches. RCA: Proximal 100%. rSV) SVG to OM branch patent; target vessel with mild disease. 2) SVG to distal RCA 100% thrombotically occluded proximal to mid. 3) Remote prior CABG included 2 other SVGs; could not be located; presumed to be occluded. WOODRUFF: WOODRUFF to LAD patent; target vessel with non-critical disease. LVEF: No LV-gram secondary to acute event. Estimated blood loss: <50ml Closure method: other (RFA sheath left in place; IABP in LFA.) Assessment: 1) CAD as described above. 2) Successful PCI of SVG to RCA with palcement of 3 drug coated stents. 3) IABP insertion. Intervention: Based on the patient's clinical presentation and diagnostic angiography, the decision was made to perform percutaneous coronary intervention of the occluded SVG to distal RCA. During the procedure, the patient had demonstrated recurrent episodes of hypotension requiring boluses of epinephrine and ultimately an epinephrine drip. Therefore, before proceeding with the PCI, and intra-aortic balloon pump was inserted via the left femoral artery. The patient received intravenous Angiomax. A 6 [place] multipurpose A-1 guiding catheter was advanced and engaged in the ostium of the SVG to RCA. Interestingly, during the diagnostic portion of the study, the SVG was 100% thrombotically occluded. On the first angiogram with the guiding catheter, the graft was found to be patent with EMPERATRIZ-3 flow. However, there was evidence of a high-grade lesion in the distal body of the vein graft along with diffuse disease. Fluoroscopy revealed that this SVG had been previously extensively stented. Predilatation of the high -grade distal lesion was performed using a 3.0 x 12 mm Emerge balloon. A 3.5 x 38 mm Synergy stent was advanced and deployed in the distal body of the vein graft. A second 3.5 x 38 mm Synergy stent was advanced and deployed in the mid- body of the vein graft slightly overlapping with the first stent. Finally, a 3.5 x 28 mm Synergy stent was deployed in the proximal portion of the vein graft slightly overlapping the second stent. Post dilatation of the stented segment was performed using a 3.5 x 20 mm NC Emerge balloon. Final angiograms demonstrated EMPERATRIZ-3 flow. There were 2 to 3 areas of 20-30% residual stenosis at regions which were essentially undilatable. Patient Problems: Problems Problem Status Onset S/P deep brain stimulator placement Acute
[2017-02-22] MEDS ORDERED: PROTOCOL K PHOSPHATE 1 DOSE IV PRN ×2 (11:36→16:41)
[2017-02-22] MEDS ORDERED: PROTOCOL MAGNESIUM 1 DOSE IV PRN ×2 (11:36→16:41)
[2017-02-22] MEDS ORDERED: PROTOCOL POTASSIUM 1 DOSE MISC PRN ×2 (11:36→16:41)
--- NOTE | 2017-02-22 11:41 | CPEKG ---
Heart Rate: 109 RR Interval: 550 QRSD Interval: 158 QT Interval: 424 QTC Interval: 572 QRS [place]: -73 T Wave [place]: 93 EKG Severity - ABNORMAL ECG - EKG Impression: ATRIAL FIBRILLATION EKG Impression: RIGHT BUNDLE BRANCH BLOCK EKG Impression: ST ELEVATION, PROBABLE INFERIOR INJURY Electronically Signed By: Mireya Hopkins 22-Feb-2017 12:20:12
[2017-02-22 11:42] LABS: BASE EXCESS -7.3 mEq/L (-2.5-2.5); BICARBONATE 20 mEq/L (22-26); MEASURED OXYGEN SATURATION 86 % (92-95); PCO2 43 mmHg (34-38); PO2 52 mmHg (65-75); TCO2 22 mEq/L (23-27)
[2017-02-22 11:43] LABS: ASSIST CONTROL YES; END TIDAL CO2 37; O2 CONCENTRATIION 100 % (0-100); P/F RATIO 52 RATIO; TOTAL RATE 10
[2017-02-22] MEDS ORDERED: fentaNYL 100 MCG/2 ML INJ IVP PRN (12:02)
[2017-02-22] MEDS ORDERED: PROPOFOL/EMULSION 1,000 MG/100 ML BOTTLE IV ONE (12:05)
[2017-02-22] MEDS ORDERED: ASPIRIN RECTAL 300 MG SUPP PR ONE (12:15)
[2017-02-22] MEDS ORDERED: NARCOTIC DRIP BAG-TOTAL ALL TYPES IV PRN (13:04)
[2017-02-22] MEDS: fentaNYL/NACL 100 ML IV SCH ×2 (13:20→22:53)
[2017-02-22] MEDS: PROPOFOL/EMULSION 100 ML IV SCH (13:27)
[2017-02-22 14:33] LABS: POTASSIUM 3.7 mEq/L (3.5-5.2)
[2017-02-22] MEDS ORDERED: POTASSIUM Cl (KCl) 50 ML IV ONE (14:46)
[2017-02-22] MEDS ORDERED: MAGNESIUM SULF 1 GM/DEXTROSE 100 ML IV ONE (15:24)
[2017-02-22 15:40] LABS: BASE EXCESS -8.4 mEq/L (-2.5-2.5); BICARBONATE 18 mEq/L (22-26); MEASURED OXYGEN SATURATION 100 % (92-95); PCO2 38 mmHg (34-38); PO2 285 mmHg (65-75); TCO2 19 mEq/L (23-27)
[2017-02-22 15:44] LABS: ASSIST CONTROL YES; END TIDAL CO2 36; O2 CONCENTRATIION 100 % (0-100); P/F RATIO 285 RATIO; TOTAL RATE 15
[2017-02-22] MEDS ORDERED: D50W 25 GM/50 ML SYR IVP PRN ×2 (16:15→21:30)
[2017-02-22] MEDS ORDERED: PROTOCOL CALCIUM 1 DOSE IV PRN (16:41)
[2017-02-22 16:49] LABS: POTASSIUM 4.4 mEq/L (3.5-5.2)
[2017-02-22] MEDS ORDERED: LIDOCAINE 2% JELLY 20 ML (UROJECT) ONE (17:13)
--- NOTE | 2017-02-22 17:14 | ECHO ---
[id number] + + [address] : : [place] [address] : : [phone] + Adult Echocardiographic Report + --------+ :Name: REMY DE LA GARZA STEPHANYjami Date: 02/22/2017 11:46 AM : : Hospital Admission Number: [id number] Locat ion: 255: :: 1935 Gender: Male Height: 67 in : :Age: 81 yrs Race: WH Weight: 160 l b : :Reason For Study: Eval LV Fx : : BSA: 1.8 mete rs2 : :History: Post Cardiac Arrest, Balloon pump, Tachycardia : + --------+ MMode/2D Measurements \T\ Calculations IVSd: 1.0 cm LVIDd: 4.3 cm FS: 18.7 % LVPWd: 1.2 cm LVIDs: 3.5 cm EDV(Teich): 85.2 ml ESV(Teich): 52.0 ml EF(Teich): 38.9 % Normal Measurement Values: + + :LVIDd (3.5-5.7cm) IVSd (0.6-1.1cm) LVPWd (0.6-1.1cm) Aortic Root (2.0-3.7cm)Left Atrium (1.5-4.0cm): :LV Vol(d) (76-115ml) LV Vol(s) (29-48ml) Ejec Fraction (50-65%)PV Bean (0.6- 1.2m/s) TV Bean (0.4-1.0m/s) : :MV E Bean (0.8-1.0m/s)MV A Bean (0.3-1.0m/s)LVOT Bean (0.7-1.2m/s) Asc Ao Bean ( 0.9-1.8m/s) : + + Doppler Measurements \T\ Calculations TR max bean: 176.5 cm/sec TR max P.5 mmHg RAP systole: 5.0 mmHg RVSP(TR): 17.5 mmHg Left Ventricle The left ventricle is normal in size. There is mild concentric left ventricular hypertrophy. Ejection Fraction = 35%. There is mid inferoseptal hypokinesis, there is apical hypokinesis. There is mild to moderate global hypokinesis of the left ventricle. Right Ventricle The right ventricular systolic function is moderately reduced. There is RV apical hypokinesis. Atria The left atrial size is normal. Mitral Valve The mitral valve is normal. There is trace mitral regurgitation. Tricuspid Valve The tricuspid valve is not well visualized. There is mild tricuspid regurgitation. Right ventricular systolic pressure is normal. RVSP may be underestimated due to poor RV function and rhythm. Aortic Valve The aortic valve is normal in structure and function. The aortic valve is trileaflet. There is no aortic stenosis. Mild to moderate aortic regurgitation. Pulmonic Valve The pulmonic valve is not well visualized. There is no pulmonic valvular regurgitation. Great Vessels The aortic root is normal size. Pericardium/Pleural There is no pericardial effusion. Conclusion (1) Left ventricular systolic ejection fraction was moderately reduced (30- 35%) - global hypkinesis with inferoseptal hypokinesis and apical akinesis (2) Mild concentric left ventricular hypertrophy (3) Diastolic dysfunction was not clearly assessed in this study (4) Moderate reduction in right ventricular systolic function. Apical hypokinesis was noted (5) Normal atrial dimensions (6) Physiologic mitral regurgitation (7) Trileaflet aortic valve without sclerosis or stenosis. Mild to moderate insufficiency was noted (8) Mild tricuspid regurgitation - RVSP was grossly normal, but likely underestimated given the ongoing situation (9) Poor visualization of the pulmonic valve (10) No comparison echocardiograms Final Reading Physician: Dee Mancera signed on 02/22/2017 05:12 PM Ordering Physician: Jennifer Miller Performed By: Junito Weldon, LORENACS
[2017-02-22 17:20] LABS: CK-MB INTERPRETATION POSITIVE (NEGATIVE)
[2017-02-22 18:22] LABS: TROPONIN I 0.264 ng/mL (0-0.034)
[2017-02-22 20:22] LABS: GLUCOSE 365 mg/dL (70-100)
[2017-02-22] MEDS: ENOXAPARIN 30 MG/0.3 ML SYR SC SCH (20:49)
[2017-02-22] MEDS: INSULIN LISPRO 100 UNIT/ML SC SCH (20:50)
[2017-02-22] MEDS: FAMOTIDINE 20 MG/NACL 50 ML IV SCH (20:51)
[2017-02-22] MEDS: CHLORHEXIDINE GLUCONATE 15 ML UDL PO SCH (20:54)
[2017-02-22 21:13] LABS: POTASSIUM 4.3 mEq/L (3.5-5.2)
[2017-02-22] MEDS ORDERED: INSULIN REGULAR HUMAN 100 UNIT in NS 100 ML IV SCH (21:30)
[2017-02-22] MEDS ORDERED: D5W 1,000 ML IV SCH (21:30)
--- NOTE | 2017-02-22 22:02 | GCON ---
[f rep st] CONSULTATION DATE OF CONSULTATION: 02/22/2017 REASON FOR CONSULTATION: Cardiac arrest. HISTORY: This patient is an 81-year-old male with an extensive past cardiac history which includes 5-vessel coronary bypass grafting in 1992 and subsequent PCI procedures in 2011, 2012, and 2013. Al l of his care had previously been delivered in [place]. He was recently seen in the [facility] office by Dr. Akbar Johnson on December 07. That visit was to establish cardiology followup with [facility] and for preoperative cardiac risk assessment prior to a planned pulse generator change fo r his deep brain stimulator as part of his Parkinson's treatment. The patient reported that he was doing well and was not experiencing any symptoms suggestive of angina, CHF, or symptomatic arrhythmi as. He was at least moderately physically active. He was judged to be at an acceptable risk for th e minor nature of the planned procedure. The patient was on chronic dual anti-platelet therapy with aspirin and clopidogrel. These medicines were discontinued several days prior to today's scheduled pulse generator change. The patient was taken to the operating room and anesthesia was induced. H owever before his surgical procedure could be initiated, he had a hypotensive/bradycardic arrest. C IN was initiated. The patient was given epinephrine, and he regained a rhythm and pulse. His OR dc rdiac monitor demonstrated significant ST-segment depression. Dr. Servando Cartwright responded to the overh ead code blue call. After initially assessing the patient, he contacted me. I was just preparing t o leave home for the hospital at that point in time. Therefore, Dr[facility] cardiac catheterization. At the time of my arrival, Dr. Cartwright had gained fem oral access but was having difficulty finding a catheter to engage the left coronary system. At thi s point, I stepped in and completed the remainder of the procedure. In brief, his cardiac catheteri zation demonstrated severe [place] multivessel CAD with occlusions of all 3 major epicardial coronari es. He had a patent WOODRUFF to LAD graft, a patent SVG to obtuse marginal branch, and a previously ext ensively stented SVG to the distal RCA, which was found to be acutely, thrombotically occluded in it s proximal to midportion. The patient continued to demonstrate episodes of hypotension and bradycar seng, necessitating repeat boluses of intravenous epinephrine. Ultimately, a low-dose epinephrine dr huggins was started. As mentioned above, his coronary bypass surgery in 1992 was a 5-vessel bypass. It is presumed he had 2 other saphenous vein grafts likely to a diagonal branch and then a second obtus e marginal branch. I suspect that these had been chronically occluded. After completing diagnostic angiography, I decided to place an intra-aortic balloon pump via the left femoral artery. This was accomplished, and percutaneous coronary intervention of the occluded SVG to RCA was initiated. Upo n engagement of the guiding catheter, the first angiogram demonstrated that this SVG was now once ag ain open with relatively normal blood flow; however, there was evidence of diffuse disease and a cayetano y high-grade lesion in the distal body of the vein graft. Ultimately, 3 Synergy stents were placed throughout the length of the SVG to RCA, and the patient was transported to the ICU intubated with i ntra-aortic balloon pump support, pressor support, in critical but stable condition. PAST MEDICAL HISTORY: As mentioned above, he has an extensive cardiac history with prior CABG and s ubsequent PCIs. I asked his family whether or not his previous doctors had given them any impressio n regarding his left ventricular function. They were uncertain. Additional medical history include s type 2 diabetes, hyperlipidemia, hypertension, obstructive sleep apnea, Parkinson disease, prostat e cancer, and restless leg syndrome. PAST SURGICAL HISTORY: In addition to his CABG, he has had hernia repair, prostate seed implant, an d shoulder surgery. MEDICATIONS: Outlined in the medication section of the electronic record. ALLERGIES: No known drug allergies. SOCIAL HISTORY: He is . He does not smoke or consume excessive amounts of alcohol. FAMILY MEDICAL HISTORY: Not pertinent. REVIEW OF SYSTEMS: Unobtainable. PHYSICAL EXAMINATION: I basically encounter the patient prepped and draped on the cardiac catheteri zation table, and therefore no formal physical examination was performed. ASSESSMENT: This is an 81-year-old male with a long cardiac history who had a bradycardic/hypotensi ve arrest after induction of anesthesia for a pulse generator change. He demonstrated thrombotic oc clusion of saphenous vein graft to the right coronary artery, likely related to interruption of his antiplatelet therapy. He is now status post successful percutaneous coronary intervention. PLAN: The patient is now in the intensive care unit intubated, sedated, and paralyzed with intra-ao rtic balloon pump support and low-dose intravenous epinephrine. Dr. Espinal from the pulmonary critic al care service is consulting for management of his noncardiac ICU needs. I had a lengthy discussio n with the patient's family about the critical nature of his illness and the potential for anoxic br ain injury. I anticipate the next 48-72 hours will be occupied with adjusting his medicines, weanin g pressor and balloon pump support in an effort to remove his femoral lines so that his sedation can be stopped and he can be assessed for cognitive function and candidacy for extubation. /[id number]/MODL
[2017-02-23 03:44] LABS: BICARBONATE 17 mEq/L (22-26); IONIZED CALCIUM 1.13 MMOL/L (1.12-1.30); MEASURED OXYGEN SATURATION 95 % (92-95); PCO2 32 mmHg (34-38); PO2 88 mmHg (65-75); TCO2 18 mEq/L (23-27)
[2017-02-23 03:45] LABS: ASSIST CONTROL YES; O2 CONCENTRATIION 50 % (0-100); P/F RATIO 176 RATIO; TOTAL RATE 21
[2017-02-23 03:58] LABS: ALANINE AMINOTRANSFERASE 178 IU/L (21-72); ALBUMIN 3.2 g/dL (3.5-5.0); ALKALINE PHOSPHATASE 93 IU/L (38-126); ANION GAP 11 mEq/L (8-16); ASPARTATE AMINOTRANSFERASE 246 IU/L (17-59); BILIRUBIN,TOTAL 0.6 mg/dL (0.1-1.4); CALCIUM 7.9 mg/dL (8.5-10.4); CARBON DIOXIDE 19 mEq/l (22-31); CHLORIDE 109 mEq/L (97-110); CREATININE 1.4 mg/dL (0.7-1.3); GLOMERULAR FILTRATION RATE 49; GLUCOSE 227 mg/dL (70-100); LACTATE DEHYDROGENASE 1079 IU/L (313-618); MAGNESIUM 1.9 mg/dL (1.6-2.3); SODIUM 139 mEq/L (134-144); TOTAL PROTEIN 5.2 g/dL (6.3-8.2)
[2017-02-23 04:15] LABS: CK-MB INTERPRETATION POSITIVE (NEGATIVE)
[2017-02-23 04:26] LABS: % IMMATURE GRANULYOCYTES 0.3 % (0.0-1.1); ABSOLUTE IMMATURE GRANULOCYTES 0.05 10^3/uL (0.00-0.10); ADD DIFF? NO; ADD MORPH? NO; ADD SCAN? NO; ATYPICAL LYMPHOCYTE FLAG 0 (0-99); FRAGMENT RBC FLAG 0 (0-99); HEMATOCRIT 37.6 % (40.0-51.0); HEMOGLOBIN 12.6 g/dL (13.7-17.5); LEFT SHIFT FLG 60 (0-99); LIPEMIA HEMOLYSIS FLAG 80 (0-99); MEAN CELL HEMOGLOBIN 30.9 pg (27.9-34.1); MEAN CELL HEMOGLOBIN CONCENTR. 33.5 g/dL (32.4-36.7); MEAN CELL VOLUME 92.2 fL (81.5-99.8); MEAN PLATELET VOLUME 10.5 fL (8.7-11.7); PLATELET CLUMPS FLAG 20 (0-99); PLATELET COUNT 196 10^3/uL (150-400); RED BLOOD CELL COUNT 4.08 10^6/uL (4.40-6.38)
--- NOTE | 2017-02-23 04:28 | GCON ---
[f rep st] CONSULTATION CRITICAL CARE CONSULT. DATE OF CONSULTATION: 02/22/2017 HISTORY OF PRESENT ILLNESS: The patient is an 81-year-old male with a history of Parkinson disease who was admitted earlier today, I believe to have surgery related to deep brain stimulator. His cuauhtemoc ds were placed here, at [facility], in January without consequence, and I believe the stimulato r was to be placed today. In any case, after induction, however, of anesthesia, the patient develop ed a severe bradycardic arrest requiring CPR. Though the exact CPR time is not well known, he, appa rently, required this for multiple periods over about a 45-minute run. He initially was unresponsiv e to atropine and did get intermittent boluses of epinephrine, eventually getting an epinephrine dri p. At some point, he did have a ventricular tachycardia and was shocked at least 1 time. He is tho ught to have a history of atrial fibrillation, but it is unclear to me whether he does or not, but d oes have a known history of coronary artery disease. Because of the instability, he was brought to the cardiac clinical laboratory manager where Dr. Zavala found very poor blood flow to a previous RCA graft and requi red 3 stents in this region. Previous graft from the WOODRUFF to LAD was okay and from a saphenous vein graft to an obtuse marginal were okay. He, apparently, had a 5-vessel CABG done in the remote past , but the other 2 vessels were not observed. In any case, he remained stable and arrived in the int ensive care unit on a ventilator and on an epinephrine drip at 0.1 with a heart rate of about 150 an d a blood pressure of 200 over about 100. The epinephrine drip was reduced while an echocardiogram was being performed. The ejection fraction on the echo was said to be about 35%, and he had an intr a-aortic balloon pump in place and was on a ventilator at the time of arrival. REVIEW OF SYSTEMS: Unobtainable at the time, but the patient appeared to be relatively stable, desp ite this very intense intervention over the preceding time before the ICU. PAST MEDICAL HISTORY: Obtained from [facility] and notes from [facility] dated earlier this ye ar. Past medical history, therefore, includes: 1. Parkinson disease versus essential tremor. 2. Restless legs syndrome. 3. Coronary artery disease. 4. Previous myocardial infarction. 5. Bladder outlet obstruction. 6. Diabetes. 7. Carotid artery disease. 8. Chronic sinusitis. 9. Gastroesophageal reflux disease. 10. Hyperlipidemia. 11. Prostate cancer, having been treated with radioactive beads in the past. 12. Hypertension. 13. Idiopathic hypotension. 14. Obstructive sleep apnea. 15. Cataract surgery. PAST SURGICAL HISTORY: A little unclear, but it looks like there has been a 5-vessel CABG clearly i n the past and had remained on aspirin and Plavix because of that. SOCIAL HISTORY: He is a lifelong nonsmoker. Minimal alcohol. No IV drug use. FAMILY HISTORY: Includes: Alzheimer disease, breast cancer, and stroke. CURRENT MEDICATIONS: Include: Lovenox, epinephrine, fentanyl, insulin, Zofran, Effient, propofol, normal saline. PHYSICAL EXAMINATION: VITAL SIGNS: At the time of my visit which was earlier today, his blood pres sure reduced to 140/90 with a heart rate of about 130. Appeared to be a sinus tachycardia, using a balloon pump for augmentation. Respiratory rate of about 19. Oxygen saturation was 100% on AC on 1 00% FiO2 and 5 of PEEP. HEENT: His pupils were equal, but quite dilated and not exactly reactive a t this time, but he was on an epinephrine drip. NECK: Supple without adenopathy. No jugular vein distention. LUNGS: Breath sounds actually sounded quite clear without rales or rhonchi. HEART: S ounds appear to have a regular rate and rhythm, though he was getting an echo at the time. ABDOMEN: Soft, nontender, nondistended. He had bilateral groin lines neither of which showed any evidence of hematoma. EXTREMITIES: Somewhat cool and clamped, but no evidence of cyanosis. NEUROLOGICAL: Deferred at this time. DATA REVIEWED: Includes: A chest x-ray that showed adequate line and tube placement without substa ntial infiltrates, though may have early pulmonary edema. Labs taken this morning showed I am not s ure what time these were taken, but a white count was 16.4, hematocrit was 39, platelets of 194. IN R was 1.3. Sodium is 139, potassium 3.4, chloride 104, bicarb 20, BUN 16, creatinine 0.9, AST was 3 06, ALT 95, alk phos 119, CK 20, albumin 4.4. Troponin only 0.012; I expect that to rise. ASSESSMENT AND PLAN: 1. Likely an acute ischemic event off his normal anticoagulants and status post percutaneous interv ention with stenting in place. He appears to be dependent on his epinephrine drip at this time and each time the drip is decreased he becomes bradycardic, once again. He has had several episodes of cardiopulmonary resuscitation. At his advanced age with multiple comorbidities, I would say his pro gnosis is certainly guarded at this time. We chose not to use the hypothermia protocol for concerns about arrhythmias at this time and for the likelihood of causing harm by decreasing sedation or to do a neurologic examination. We will keep him relatively sedated on the ventilator at this time and , once things are more stable, we will do a more thorough examination to see how well he recovers fr om that event. 2. Acute ischemia. This is being managed by Cardiology. I discussed this with Dr. Zavala in mala e detail today. What we did not discuss was the possibility of him needing a pacemaker at least tem porarily at this time. He maintains on a balloon pump and an epinephrine drip and is maintaining a blood pressure. His urine output seems to be adequate at this time. Dobutamine may be an affective additional pressor as needed. 3. Respiratory failure. He has required mechanical ventilation. We have increased his PEEP on thi s, and a repeat blood gas is pending at this time. 4. Transaminitis. This is likely related to his code. We will follow these closely, expect them t o rise in the near future. 5. Diabetes. He is getting a sliding scale now, but he may need an insulin drip. A total of about 75 minutes of critical care time over the course of the day was required for this p atient with multiorgan failure and severe critical illness for which he may not survive. /[id number]/MODL
[2017-02-23] MEDS ORDERED: NS 250 ML IV ONE (05:30)
[2017-02-23 06:06] LABS: CALCULATED OXYGEN SATURATION 93 % (92-95); O2 CONCENTRATIION 50 % (0-100)
--- NOTE | 2017-02-23 07:55 | NEUSURGPN ---
Assessment/Plan: 81 y/o male whose DBS generator case was aborted after he became bradycardiac, lost pulse and code after intubation. -Follows commands this morning. -Appreciate Critical care/cardiology management -Discussed with Dr. Miller -Please notify NS with any change in neuro/motor exam Subjective: Intubated Objective: Intubated. Left pupil 3mm right 2mm ( stables stable since DBS lead placement). tie sawyer strength 5/5 and wiggles toes appropriately. Catheter Insertion Date: 02/22/17 - Physician Discussed Patient with : Paul Neurosurgery Physical Exam - Vitals, I&O, Labs I and O 02/22/17 02/23/17 02/24/17 05:59 05:59 05:59 Intake Total 3154.1 Output Total 2100 Balance 1054.1 Intake: IV Intake (ml) 1400 IV Infused (ml) 1754.1 EPINEPHrine 1 mg In D5w 1329 250 ml @ Per Protocol IV CONT KATHERIN Rx#:[id number] Insulin Regular Human 100 36.1 unit In Ns 100 ml @ As Directed IV AD KATHERIN Rx#: [id number] Ns 1,000 ml @ 100 mls/hr 166 IV CONT KATHERIN Rx#: [id number] Propofol/Emulsion 100 ml 106.5 @ Per Protocol IV CONT KATHERIN Rx#:[id number] fentaNYL/NACL 100 ml @ 116.5 Per Protocol IV CONT KATHERIN Rx#:[id number] Output: Urine (ml) 1700 Catheter 1700 Emesis (ml) 50 NG Drainage (ml) 350 Large Bore (>12 U[place]) 350 Left Naris Stomach Vital Signs Temp Pulse Resp BP Pulse Ox 37.7 C 90 20 94/22 L 97 02/23/17 06:00 02/23/17 07:00 02/23/17 07:00 02/23/17 07:00 02/23/17 07:00 Laboratory Results 02/23/17 03:30 02/23/17 03:30 ICD10 Worksheet Patient Problems: Problems Problem Status Onset S/P deep brain stimulator placement Acute
[2017-02-23] MEDS: INSULIN LISPRO 100 UNIT/ML SC SCH ×3 (08:00→18:21)
--- NOTE | 2017-02-23 08:36 | CPEKG ---
Heart Rate: 88 RR Interval: 682 P-R Interval: 168 QRSD Interval: 144 QT Interval: 436 QTC Interval: 528 P [place]: 68 QRS [place]: -70 T Wave [place]: 41 EKG Severity - ABNORMAL ECG - EKG Impression: SINUS RHYTHM EKG Impression: RIGHT BUNDLE BRANCH BLOCK Electronically Signed By: Mireya Hopkins 23-Feb-2017 12:05:49
[2017-02-23] MEDS ORDERED: PRASUGREL HCL 10 MG TAB PO SCH (09:00)
[2017-02-23] MEDS ORDERED: ASPIRIN EC 325 MG TAB PO SCH (09:00)
[2017-02-23] MEDS: FAMOTIDINE 20 MG/NACL 50 ML IV SCH ×2 (09:43→21:09)
[2017-02-23] MEDS: CHLORHEXIDINE GLUCONATE 15 ML UDL PO SCH ×2 (09:43→20:58)
[2017-02-23] MEDS: ENOXAPARIN 30 MG/0.3 ML SYR SC SCH ×2 (09:43→21:09)
[2017-02-23] MEDS: ASPIRIN 325 MG TAB TUBE SCH (09:51)
[2017-02-23] MEDS ORDERED: VASOPRESSIN/DEXTROSE 250 ML IV SCH (11:30)
[2017-02-23] MEDS: fentaNYL/NACL 100 ML IV SCH (13:26)
[2017-02-23 13:31] LABS: POTASSIUM 3.7 mEq/L (3.5-5.2)
[2017-02-23] MEDS ORDERED: POTASSIUM Cl (KCl) 50 ML IV ONE (13:50)
[2017-02-23] MEDS ORDERED: POTASSIUM Cl (KCl) 20 MEQ/50 ML BAG IV ONE (13:52)
[2017-02-23 14:14] LABS: CK-MB INTERPRETATION POSITIVE (NEGATIVE)
[2017-02-23] MEDS ORDERED: ONDANSETRON DISINTEGRATING 4 MG TAB TUBE PRN (15:41)
--- NOTE | 2017-02-23 16:24 | PDINTPN ---
Rougher Operator Progress Note Assessment/Plan: Assessment/plan: 81 M with Parkinsons disease admitted 02/22/17 for placement of deep brain stimulator generator, complicated by bradycardic arrest after induction of anesthesia. He likely had a cardiac ischmic event as he had known CAD with a remote 5v CABG and had anticoagulation held for surgery. 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 He had patent grafts to his LAD and OM, but an occluded RCA graft that was stented x 3 followed by placement of an IABP. He arrived in the ICU on an epi drip as well and has a reported EF of 35%. * Cardiac arrest 2/2 acute NV- he remains tenuous and requires an epi drip to keep his HR >60 and MAP >65. Hed reportedly followed commands today and responded to family though his overall prognosis is guarded. * Cardiogenic shock- He responded somewhat to IVF and vasopressin was added today. He remains dependent on the IABP as well. Will discuss with cardiology the value of either dobutamine or temporary pacing * Respiratory failure with hypoxemia and ventilator dependence- his FiO2 responded well to PEEP and would consider weaning once his balloon pump is dc' d. * DULCE- creatinine up to 1.4 which is remarkably low given the events of 02/21. Adequate UOP at the moment but watch closely. Avoid nephrotoxins, hypotension, etc. * WBC- likely stress reaction. No evidence of infection at this time * * critical care time 45 minutes Objective: Vital Signs Temp Pulse Resp BP Pulse Ox 37.6 C 86 20 140/41 H 98 02/23/17 12:00 02/23/17 15:00 02/23/17 15:00 02/23/17 15:00 02/23/17 15:00 Laboratory Results 02/23/17 03:30 02/23/17 13:16 02/22/17 02/23/17 02/24/17 05:59 05:59 05:59 Intake Total 3154.1 Output Total 2100 225 Balance 1054.1 -225 PT 16.2 SEC (12.0-15.0) H D 02/22/17 09:00 INR 1.30 (0.83-1.16) H 02/22/17 09:00 Physical Exam - Physical Exam General Appearance: no apparent distress, other (seated) EENT: PERRL/EOMI Neck: supple Respiratory: lungs clear, normal breath sounds, No respiratory distress Cardiac/Chest: regular rate, rhythm, No edema Abdomen: non-tender, soft, No distended Skin: normal color, warm/dry Lymphatic: no adenopathy Extremities: No pedal edema Neuro/Psych: cognition abnormalities ICD10 Worksheet Patient Problems: Problems Problem Status Onset S/P deep brain stimulator placement Acute
[2017-02-23] MEDS: PROPOFOL/EMULSION 100 ML IV SCH (18:00)
--- NOTE | 2017-02-23 18:58 | PDCARPN ---
Cardiology Progress Note Assessment/Plan: Cardiac arrest- occurred in the OR immediately after anesthesia induction. No further significant arrhythmias. Non-ST Segment Elevation Myocardial Infarction- treated with PCI of a thrombotically occluded saphenous vein graft to the RCA. Peak CPK relatively modest at 617. No clinical evidence for recurrent ischemia. Coronary Artery Disease- remote history of a five-vessel CABG and several subsequent PCI procedures. [place] was likely precipitated by interruption of his chronic dual antiplatelet therapy. DAPT now consists of aspirin and Effient. Genetic testing for clopidogrel metabolism pending. Ischemic Cardiomyopathy- LVEF 30-35%; I suspect most of this is chronic; not demonstrating any decompensation with respect to CHF. BMP modestly increased at 1630. Chest x-ray without pulmonary edema. Hypotension- continues on IABP at 1:1 along with intravenous epinephrine and vasopressin. Will reassess tomorrow for potentially removing IABP. Neurologic Status- nursing staff reports that patient followed commands and responded appropriately when sedation was lightened this morning. 02/23/17 18:52 Subjective: Intubated/sedated Reviewed/Discussed With: family Objective: Vital Signs (8 Hrs) Temp Pulse Resp BP Pulse Ox 02/23/17 18:39 92 20 114/46 L 95 02/23/17 18:00 20 137/41 H 97 02/23/17 17:11 80 20 98 02/23/17 17:00 80 20 141/41 H 96 02/23/17 16:00 37.8 C 83 20 131/42 H 95 02/23/17 15:00 86 20 140/41 H 98 02/23/17 14:00 81 20 160/44 H 98 02/23/17 13:00 82 20 149/37 H 97 02/23/17 12:07 85 20 148/45 H 96 02/23/17 12:00 37.6 C 90 20 132/47 H 96 02/23/17 11:00 87 20 122/41 H 98 Intake/Output (24 Hrs) 02/22/17 02/23/17 02/24/17 05:59 05:59 05:59 Intake Total 3154.1 2358 Output Total 2100 610 Balance 1054.1 1748 Intake: IV Intake (ml) 1400 1020 IV Infused (ml) 1754.1 1338 EPINEPHrine 1 mg In D5w 1329 1121 250 ml @ Per Protocol IV CONT [facility] Rx#:[id number] Insulin Regular Human 100 36.1 35 unit In Ns 100 ml @ As Directed IV AD [facility] Rx#: [id number] Ns 1,000 ml @ 100 mls/hr 166 IV CONT [facility] Rx#: [id number] Propofol/Emulsion 100 ml 106.5 59 @ Per Protocol IV CONT [facility] Rx#:[id number] Vasopressin/Dextrose 250 37 ml @ Titrate IV CONT [facility] Rx#:[id number] fentaNYL/NACL 100 ml @ 116.5 86 Per Protocol IV CONT [facility] Rx#:[id number] Output: Urine (ml) 1700 510 Catheter 1700 510 Emesis (ml) 50 NG Drainage (ml) 350 100 Large Bore (>12 [place]) 350 100 Left Naris Stomach Result Diagrams: 02/23/17 03:30 02/23/17 17:50 Cardiac Labs: Cardiac Lab Results (72 Hrs) 02/23/17 02/23/17 02/22/17 13:16 03:30 Unknown CK-MB (CK-2) Fraction 23.90 H 44.60 H Troponin I 16.700 H 33.700 H 0.264 H 02/22/17 02/22/17 02/22/17 16:31 16:09 08:15 CK-MB (CK-2) Fraction Cancelled 45.80 H Troponin I < 0.012 - Physical Exam Constitutional: other (Intubated and sedated) Eyes: anicteric sclera Ears, Nose, Mouth, Throat: moist mucous membranes Cardiovascular: regular rate and rhythm, no murmurs, no rubs, no gallops Respiratory: clear to auscultate bilat (anteriorly) Gastrointestinal: normoactive bowel sounds, no masses Skin: no rashes, no edema Neurologic: other (Sedated) ICD10 Worksheet Patient Problems: Problems Problem Status Onset S/P deep brain stimulator placement Acute
[2017-02-23] MEDS ORDERED: EPINEPHrine 2 MG in D5W 500 ML IV SCH (20:00)
[2017-02-24 00:57] LABS: POTASSIUM 4.4 mEq/L (3.5-5.2)
[2017-02-24] MEDS: fentaNYL/NACL 100 ML IV SCH (03:12)
[2017-02-24 04:25] LABS: BASE EXCESS -2.7 mEq/L (-2.5-2.5); BICARBONATE 21 mEq/L (22-26); IONIZED CALCIUM 1.14 MMOL/L (1.12-1.30); MEASURED OXYGEN SATURATION 97 % (92-95); PCO2 35 mmHg (34-38); PO2 95 mmHg (65-75); TCO2 22 mEq/L (23-27)
[2017-02-24 04:28] LABS: % IMMATURE GRANULYOCYTES 0.3 % (0.0-1.1); ABSOLUTE IMMATURE GRANULOCYTES 0.02 10^3/uL (0.00-0.10); ADD DIFF? NO; ADD MORPH? NO; ADD SCAN? YES; ASSIST CONTROL YES; ATYPICAL LYMPHOCYTE FLAG 0 (0-99); END TIDAL CO2 30; FRAGMENT RBC FLAG 0 (0-99); HEMOGLOBIN 10.2 g/dL (13.7-17.5); LIPEMIA HEMOLYSIS FLAG 90 (0-99); MEAN CELL HEMOGLOBIN 30.6 pg (27.9-34.1); MEAN CELL VOLUME 90.1 fL (81.5-99.8); O2 CONCENTRATIION 50 % (0-100); P/F RATIO 190 RATIO; PLATELET CLUMPS FLAG 0 (0-99); PLATELET COUNT 86 10^3/uL (150-400); RED BLOOD CELL COUNT 3.33 10^6/uL (4.40-6.38); RED CELL DISTRIBUTION WIDTH 14.7 % (11.5-15.2)
[2017-02-24 04:29] LABS: TOTAL RATE 20
[2017-02-24 04:32] LABS: LEFT SHIFT FLG 180 (0-99)
[2017-02-24 04:39] LABS: ANION GAP 3 mEq/L (8-16); CALCIUM 7.6 mg/dL (8.5-10.4); CARBON DIOXIDE 22 mEq/l (22-31); CHLORIDE 101 mEq/L (97-110); CREATININE 0.9 mg/dL (0.7-1.3); GLOMERULAR FILTRATION RATE > 60; GLUCOSE 177 mg/dL (70-100); MAGNESIUM 1.7 mg/dL (1.6-2.3); POTASSIUM 4.4 mEq/L (3.5-5.2); SODIUM 126 mEq/L (134-144)
[2017-02-24 05:03] LABS: SCAN POSITIVE
[2017-02-24 05:09] LABS: PLATELET ESTIMATE DECREASED (ADEQ); POLYCHROMASIA 1+
[2017-02-24] MEDS ORDERED: MAGNESIUM SULF 1 GM/DEXTROSE 100 ML IV ONE (05:45)
--- NOTE | 2017-02-24 07:46 | NEUSURGPN ---
Assessment/Plan: 81 y/o male whose DBS generator case was aborted after he became bradycardiac, lost pulse and code after intubation. -Cardiac status improving somewhat per RN -Currently intubated/sedated, has been following commands per RN -Appreciate Critical care/cardiology management -Discussed with Dr. Miller -Please notify NS with any change in neuro/motor exam Subjective: Unable to obtain. Chart reviewed. Discussed with RN and at bedside. Objective: Intubated, sedated VSS - afib per RN Pupils equal Urinary Catheter in Place: Yes Urinary Catheter Indication: Other (Use Comment) (intubated and sedated) Catheter Insertion Date: 02/22/17 - Physician Discussed Patient with : Paul Neurosurgery Physical Exam - Vitals, I&O, Labs I and O 02/23/17 02/24/17 02/25/17 05:59 05:59 05:59 Intake Total 3154.1 3995.7 Output Total 2100 1360 Balance 1054.1 2635.7 Intake: IV Intake (ml) 1400 1020 IV Infused (ml) 1754.1 2975.7 EPINEPHrine 1 mg In D5w 1329 1710 250 ml @ Per Protocol IV CONT [facility] Rx#:[id number] Insulin Regular Human 100 36.1 52.7 unit In Ns 100 ml @ As Directed IV AD [facility] Rx#: [id number] Ns 1,000 ml @ 100 mls/hr 166 635 IV CONT [facility] Rx#: [id number] Propofol/Emulsion 100 ml 106.5 121 @ Per Protocol IV CONT [facility] Rx#:[id number] Vasopressin/Dextrose 250 293 ml @ Titrate IV CONT [facility] Rx#:[id number] fentaNYL/NACL 100 ml @ 116.5 164 Per Protocol IV CONT [facility] Rx#:[id number] Output: Urine (ml) 1700 1260 Catheter 1700 1260 Emesis (ml) 50 NG Drainage (ml) 350 100 Large Bore (>12 [place]) 350 100 Left Naris Stomach Vital Signs Temp Pulse Resp BP Pulse Ox 37.9 C 110 H 20 108/38 L 93 02/24/17 04:00 02/24/17 06:00 02/24/17 06:00 02/24/17 06:00 02/24/17 06:00 Laboratory Results 02/24/17 04:10 02/24/17 04:10 ICD10 Worksheet Patient Problems: Problems Problem Status Onset S/P deep brain stimulator placement Acute
[2017-02-24] MEDS: PRASUGREL HCL 10 MG TAB TUBE SCH (07:52)
[2017-02-24] MEDS: FAMOTIDINE 20 MG/NACL 50 ML IV SCH ×2 (07:52→22:00)
[2017-02-24] MEDS: CHLORHEXIDINE GLUCONATE 15 ML UDL PO SCH ×2 (07:52→20:17)
[2017-02-24] MEDS: ASPIRIN 325 MG TAB TUBE SCH (07:52)
[2017-02-24] MEDS: ENOXAPARIN 30 MG/0.3 ML SYR SC SCH ×2 (07:52→22:00)
[2017-02-24] MEDS: INSULIN LISPRO 100 UNIT/ML SC SCH ×2 (07:53→20:43)
--- NOTE | 2017-02-24 08:44 | CPEKG ---
Heart Rate: 122 RR Interval: 492 QRSD Interval: 144 QT Interval: 380 QTC Interval: 542 QRS [place]: -70 T Wave [place]: 58 EKG Severity - ABNORMAL ECG - EKG Impression: ATRIAL FIBRILLATION EKG Impression: RIGHT BUNDLE BRANCH BLOCK Electronically Signed By: Mireya Hopkins 24-Feb-2017 11:40:02
[2017-02-24] MEDS ORDERED: CHLORHEXIDINE GLUC HIBICLENS 118 ML BTL TP ONE (10:56)
[2017-02-24] MEDS ORDERED: AMIODARONE HCL 100 ML IV ONE (11:24)
[2017-02-24] MEDS ORDERED: AMIODARONE HCL 200 ML IV ONE (11:24)
[2017-02-24] MEDS ORDERED: LIDOCAINE 2% JELLY 5 ML TUBE TP ONE (11:32)
[2017-02-24] MEDS ORDERED: LIDOCAINE 1% 30 ML SDV MISC ONE (11:32)
--- NOTE | 2017-02-24 11:33 | PDCARPN ---
Cardiology Progress Note Assessment/Plan: Cardiac arrest- occurred in the OR immediately after anesthesia induction. No further ventricular arrhythmias. Non-ST Segment Elevation Myocardial Infarction- treated with PCI of a thrombotically occluded saphenous vein graft to the RCA. Peak CPK relatively modest at 617. No clinical evidence for recurrent ischemia. Coronary Artery Disease- remote history of a five-vessel CABG and several subsequent PCI procedures. [place] was likely precipitated by interruption of his chronic dual antiplatelet therapy. DAPT now consists of aspirin and Effient. Genetic testing for clopidogrel metabolism pending. Ischemic Cardiomyopathy- LVEF 30-35%; I suspect most of this is chronic; not demonstrating any decompensation with respect to CHF. BNP modestly increased at 1630. Chest x-ray without pulmonary edema. Hypotension- continues on IABP at 1:1 along with intravenous epinephrine and vasopressin. Epi drip being weaned. Continue IABP for 24 Hr more. Paroxysmal Atrial Fibrillation- went into AF overnight with mildly rapid ventricular response. Will start IV amiodarone. Consider cardioversion if AF persists. Neurologic Status- patient following commands when sedation is lightened. 02/24/17 11:25 Subjective: Intubated and sedated. Reviewed/Discussed With: family, multidisciplinary team Objective: Vital Signs (8 Hrs) Temp Pulse Resp BP Pulse Ox 02/24/17 08:30 105 H 91 L 02/24/17 06:00 110 H 20 108/38 L 93 02/24/17 05:00 100 20 100/30 L 94 02/24/17 04:40 109 H 20 114/35 L 96 02/24/17 04:28 98 20 97 02/24/17 04:00 37.9 C 89 20 131/35 H 97 Intake/Output (24 Hrs) 02/23/17 02/24/17 02/25/17 05:59 05:59 05:59 Intake Total 3154.1 3995.7 Output Total 2100 1360 Balance 1054.1 2635.7 Intake: IV Intake (ml) 1400 1020 IV Infused (ml) 1754.1 2975.7 EPINEPHrine 1 mg In D5w 1329 1710 250 ml @ Per Protocol IV CONT [facility] Rx#:[id number] Insulin Regular Human 100 36.1 52.7 unit In Ns 100 ml @ As Directed IV AD [facility] Rx#: [id number] Ns 1,000 ml @ 100 mls/hr 166 635 IV CONT [facility] Rx#: [id number] Propofol/Emulsion 100 ml 106.5 121 @ Per Protocol IV CONT [facility] Rx#:[id number] Vasopressin/Dextrose 250 293 ml @ Titrate IV CONT [facility] Rx#:[id number] fentaNYL/NACL 100 ml @ 116.5 164 Per Protocol IV CONT [facility] Rx#:[id number] Output: Urine (ml) 1700 1260 Catheter 1700 1260 Emesis (ml) 50 NG Drainage (ml) 350 100 Large Bore (>12 [place]) 350 100 Left Naris Stomach Result Diagrams: 02/24/17 04:10 02/24/17 04:10 Cardiac Labs: Cardiac Lab Results (72 Hrs) 02/23/17 02/23/17 02/22/17 13:16 03:30 Unknown CK-MB (CK-2) Fraction 23.90 H 44.60 H Troponin I 16.700 H 33.700 H 0.264 H 02/22/17 02/22/17 02/22/17 16:31 16:09 08:15 CK-MB (CK-2) Fraction Cancelled 45.80 H Troponin I < 0.012 - Physical Exam Constitutional: other (Intubated and sedated.) Eyes: anicteric sclera Ears, Nose, Mouth, Throat: moist mucous membranes Cardiovascular: no murmurs, no rubs, no gallops, irregularly irregular Respiratory: clear to auscultate bilat (anteriorly) Gastrointestinal: normoactive bowel sounds, no masses Skin: no rashes, no edema Neurologic: other (sedated) ICD10 Worksheet Patient Problems: Problems Problem Status Onset S/P deep brain stimulator placement Acute
[2017-02-24] MEDS ORDERED: BENZOCAINE UNIT DOSE SPRAY HURRICAINE MM ONE (12:16)
[2017-02-24] MEDS: ACETAMINOPHEN 650 MG/20.3 ML UDCUP TUBE PRN (12:17)
[2017-02-24] MEDS ORDERED: ALBUMIN 25% 100 ML IV ONE (13:30)
[2017-02-24] MEDS ORDERED: AMIODARONE HCL 540 MG in D5W 300 ML IV ONE (17:30)
[2017-02-25 04:31] LABS: BASE EXCESS -2.7 mEq/L (-2.5-2.5); BICARBONATE 20 mEq/L (22-26); MEASURED OXYGEN SATURATION 99 % (92-95); PCO2 31 mmHg (34-38); PO2 109 mmHg (65-75); TCO2 21 mEq/L (23-27)
[2017-02-25 04:32] LABS: ASSIST CONTROL YES; END TIDAL CO2 26; O2 CONCENTRATIION 40 % (0-100); P/F RATIO 273 RATIO; TOTAL RATE 20
[2017-02-25 04:44] LABS: ADD MORPH? NO; ADD SCAN? YES; ATYPICAL LYMPHOCYTE FLAG 0 (0-99); FRAGMENT RBC FLAG 0 (0-99); HEMATOCRIT 24.7 % (40.0-51.0); HEMOGLOBIN 8.5 g/dL (13.7-17.5); LIPEMIA HEMOLYSIS FLAG 90 (0-99); MEAN CELL HEMOGLOBIN 30.6 pg (27.9-34.1); MEAN CELL HEMOGLOBIN CONCENTR. 34.4 g/dL (32.4-36.7); MEAN CELL VOLUME 88.8 fL (81.5-99.8); MEAN PLATELET VOLUME 10.3 fL (8.7-11.7); PLATELET CLUMPS FLAG 0 (0-99); PLATELET COUNT 63 10^3/uL (150-400); RED BLOOD CELL COUNT 2.78 10^6/uL (4.40-6.38); RED CELL DISTRIBUTION WIDTH 14.5 % (11.5-15.2)
[2017-02-25 04:50] LABS: LEFT SHIFT FLG 300 (0-99)
[2017-02-25 05:06] LABS: ALANINE AMINOTRANSFERASE 84 IU/L (21-72); ALBUMIN 2.5 g/dL (3.5-5.0); ALKALINE PHOSPHATASE 83 IU/L (38-126); ANION GAP 4 mEq/L (8-16); ASPARTATE AMINOTRANSFERASE 54 IU/L (17-59); BILIRUBIN,TOTAL 1.4 mg/dL (0.1-1.4); CALCIUM 7.8 mg/dL (8.5-10.4); CARBON DIOXIDE 22 mEq/l (22-31); CHLORIDE 98 mEq/L (97-110); CREATININE 0.8 mg/dL (0.7-1.3); GLOMERULAR FILTRATION RATE > 60; GLUCOSE 161 mg/dL (70-100); MAGNESIUM 2.1 mg/dL (1.6-2.3); POTASSIUM 4.2 mEq/L (3.5-5.2); SODIUM 124 mEq/L (134-144); TOTAL PROTEIN 4.3 g/dL (6.3-8.2)
[2017-02-25 05:59] LABS: ADD DIFF? YES; SCAN POSITIVE
[2017-02-25 06:10] LABS: PLATELET ESTIMATE DECREASED (ADEQ); POLYCHROMASIA 1+
[2017-02-25] MEDS: PRASUGREL HCL 10 MG TAB TUBE SCH (08:47)
[2017-02-25] MEDS: FAMOTIDINE 20 MG/NACL 50 ML IV SCH ×2 (08:47→20:28)
[2017-02-25] MEDS: ASPIRIN 325 MG TAB TUBE SCH (08:47)
[2017-02-25] MEDS: CHLORHEXIDINE GLUCONATE 15 ML UDL PO SCH ×2 (08:52→20:28)
[2017-02-25] MEDS: ENOXAPARIN 30 MG/0.3 ML SYR SC SCH ×2 (08:52→20:28)
[2017-02-25 08:58] LABS: PLATELET COUNT 77 10^3/uL (150-400)
[2017-02-25 09:03] LABS: INR 1.35 (0.83-1.16); PROTIME(PATIENT) 16.7 SEC (12.0-15.0)
[2017-02-25 09:04] LABS: APTT 48.5 SEC (23.0-38.0)
--- NOTE | 2017-02-25 09:08 | SOAPPROG ---
SOAP Progress Note Assessment/Plan: Assessm Assessment/Plan: Cardiac arrest- occurred in the OR immediately after anesthesia induction. No further ventricular arrhythmias...will maintain iv amiodarone and change to po 200mg q d post iv drip Non-ST Segment Elevation Myocardial Infarction- treated with PCI of a thrombotically occluded saphenous vein graft to the RCA. Peak CPK relatively modest at 617. No clinical evidence for recurrent ischemia. Coronary Artery Disease- remote history of a five-vessel CABG and several subsequent PCI procedures. [place] was likely precipitated by interruption of his chronic dual antiplatelet therapy. DAPT now consists of aspirin and Effient. Genetic testing for clopidogrel metabolism pending. Ischemic Cardiomyopathy- LVEF 30-35%; I suspect most of this is chronic; not demonstrating any decompensation with respect to C tirateing off ionotropes and will decrease iabp to 1:2...? pull iabp tommorrow if hemodynically stable Hypotension- continues on IABP at 1:1 along with intravenous epinephrine and vasopressin. Epi drip being weaned..as well as vasopression . Paroxysmal Atrial Fibrillation- NSR on amiodarone..continue iv the switch to p.o. Neurologic Status- unknown to me Plan: 02/25/17 09:05 Subjective: intubated sedated...hemodynamicaaly stable Objective: Vital Signs Temp Pulse Resp BP Pulse Ox 37.7 C 63 20 141/45 H 100 02/25/17 08:00 02/25/17 08:00 02/25/17 08:00 02/25/17 08:00 02/25/17 08:00 Microbiology 02/24/17 15:00 Gram Stain - Final Lung Right Lower Lobe - Bronchial Washings Laboratory Results 02/25/17 08:35 02/25/17 04:20 02/24/17 02/25/17 02/26/17 05:59 05:59 05:59 Intake Total 3995.7 3334 Output Total 1360 765 Balance 2635.7 2569 PT 16.7 SEC (12.0-15.0) H 02/25/17 08:35 INR 1.35 (0.83-1.16) H 02/25/17 08:35 ICD10 Worksheet Patient Problems: Problems Problem Status Onset S/P deep brain stimulator placement Acute
[2017-02-25 09:11] LABS: FIBRINOGEN 618 mg/dL (214-456)
[2017-02-25] MEDS ORDERED: AMIODARONE HCL 150 MG/100 ML BAG (1.5 MG/ML) IV ONE (09:40)
--- NOTE | 2017-02-25 10:20 | NEUSURGPN ---
Assessment/Plan: 81 y/o male whose DBS generator case was aborted after he became bradycardiac, lost pulse and code after intubation. -Cardiac status improving somewhat per RN -Currently intubated/sedated, has been following commands per RN -Appreciate Critical care/cardiology management -OK from NS standpoint to resume parkinsons meds -Please notify NS with any change in neuro/motor exam Subjective: Pt intubated and sedated Objective: Intubated and sedated VSS Afebrile Scott in place Urinary Catheter in Place: Yes Urinary Catheter Indication: Other (Use Comment) (intubated/sedated) Catheter Insertion Date: 02/22/17 Neurosurgery Physical Exam - Vitals, I&O, Labs I and O 02/24/17 02/25/17 02/26/17 05:59 05:59 05:59 Intake Total 3995.7 3334 Output Total 1360 765 Balance 2635.7 2569 Intake: IV Intake (ml) 1020 1434 IV Infused (ml) 2975.7 1900 Albumin 25% 100 ml @ As 100 Directed IV ONCE [facility] Rx#: [id number] Amiodarone HCl 200 ml @ 290 33.333 mls/hr IV [facility]CE [facility] Rx#:[id number] Amiodarone HCl 540 mg In 176 D5w 300 ml @ 16.667 mls/ hr IV ONCE@1730 [facility] Rx#: [id number] EPINEPHrine 1 mg In D5w 1710 425 250 ml @ Per Protocol IV CONT [facility] Rx#:[id number] EPINEPHrine 2 mg In D5w 80 500 ml @ Per Protocol IV CONT [facility] Rx#:[id number] Insulin Regular Human 100 52.7 39 unit In Ns 100 ml @ As Directed IV AD [facility] Rx#: [id number] Ns 1,000 ml @ 100 mls/hr 635 IV CONT [facility] Rx#: [id number] Propofol/Emulsion 100 ml 121 137 @ Per Protocol IV CONT [facility] Rx#:[id number] Vasopressin/Dextrose 250 293 510 ml @ Titrate IV CONT [facility] Rx#:[id number] fentaNYL/NACL 100 ml @ 164 143 Per Protocol IV CONT [facility] Rx#:[id number] Output: Urine (ml) 1260 565 Catheter 1260 565 NG Drainage (ml) 100 200 Large Bore (>12 [place]) 100 200 Left Naris Stomach Microbiology 02/24/17 15:00 Gram Stain - Final Lung Right Lower Lobe - Bronchial Washings Vital Signs Temp Pulse Resp BP Pulse Ox 38 C 59 L 20 115/52 L 99 02/25/17 09:00 02/25/17 09:00 02/25/17 09:00 02/25/17 09:00 02/25/17 09:00 Laboratory Results 02/25/17 08:35 02/25/17 04:20 ICD10 Worksheet Patient Problems: Problems Problem Status Onset S/P deep brain stimulator placement Acute
--- NOTE | 2017-02-25 15:00 | PDINTPN ---
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 He likely had a cardiac ischmic event as he had known CAD with a remote 5v CABG and had anticoagulation held for surgery. 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 He had patent grafts to his LAD and OM, but an occluded RCA graft that was stented x 3 followed by placement of an IABP. He arrived in the ICU on an epi drip as well and has a reported EF of 35%. * Cardiac arrest 2/2 acute NSTEMI- he remains tenuous but epi came off this AM. IABP changed to 1:2 off and on- when off his HR drops to <40. Will discuss pacing with cards * Cardiogenic shock- He responded somewhat to IVF and vasopressin. * Respiratory failure with hypoxemia and ventilator dependence- his FiO2 responded well to PEEP and would consider weaning once his balloon pump is dc' d. * DULCE- creatinine gera up to 1.4, but decreased. UOP was marginal overnight but picked up today * WBC- likely stress reaction. No evidence of infection at this time * Hyponatremia- likely 2/2 CHF but will check [place]. He owuld benefit from fluid restriction as long as his kidney function remains intact. If not would consider DBT. * Thrombocytopenia- most likely from IABP. No active DIC and HIT less likely. Follow * critical care time 45 minutes 02/25/17 14:56 Objective: Vital Signs Temp Pulse Resp BP Pulse Ox 38.2 C 81 20 164/67 H 99 02/25/17 14:00 02/25/17 14:00 02/25/17 14:00 02/25/17 14:00 02/25/17 14:00 Microbiology 02/24/17 15:00 Gram Stain - Final Lung Right Lower Lobe - Bronchial Washings Laboratory Results 02/25/17 08:35 02/25/17 04:20 02/24/17 02/25/17 02/26/17 05:59 05:59 05:59 Intake Total 3995.7 3334 480 Output Total 1360 765 Balance 2635.7 2569 480 PT 16.7 SEC (12.0-15.0) H 02/25/17 08:35 INR 1.35 (0.83-1.16) H 02/25/17 08:35 Physical Exam - Physical Exam General Appearance: no apparent distress, other (sedated) EENT: anisocoria (old p[er family. left pupil slightly more dilated than right) Neck: supple Respiratory: lungs clear, normal breath sounds, No respiratory distress Cardiac/Chest: regular rate, rhythm, No edema Abdomen: non-tender, soft, No distended Skin: normal color, warm/dry Lymphatic: no adenopathy Extremities: No pedal edema Neuro/Psych: other (sedated) ICD10 Worksheet Patient Problems: Problems Problem Status Onset S/P deep brain stimulator placement Acute
[2017-02-25] MEDS: fentaNYL/NACL 100 ML IV SCH (15:23)
[2017-02-25] MEDS: PIPERACILLIN/TAZO 3.375 GM/DEX 50 ML IV SCH (17:15)
[2017-02-25] MEDS: AMIODARONE HCL 200 MG TAB TUBE SCH (17:38)
[2017-02-25] MEDS: INSULIN LISPRO 100 UNIT/ML SC SCH (17:58)
[2017-02-26] MEDS: PIPERACILLIN/TAZO 3.375 GM/DEX 50 ML IV SCH ×3 (01:06→17:06)
[2017-02-26] MEDS: INSULIN LISPRO 100 UNIT/ML SC SCH ×4 (01:46→17:39)
[2017-02-26] MEDS ORDERED: LIDOCAINE 2% 5 ML SDV IV ONE (07:15)
[2017-02-26 07:51] LABS: % IMMATURE GRANULYOCYTES 0.6 % (0.0-1.1); ABSOLUTE IMMATURE GRANULOCYTES 0.02 10^3/uL (0.00-0.10); ADD DIFF? NO; ADD MORPH? NO; ADD SCAN? YES; ATYPICAL LYMPHOCYTE FLAG 0 (0-99); FRAGMENT RBC FLAG 20 (0-99); HEMATOCRIT 26.8 % (40.0-51.0); HEMOGLOBIN 9.1 g/dL (13.7-17.5); LIPEMIA HEMOLYSIS FLAG 90 (0-99); MEAN CELL HEMOGLOBIN 30.3 pg (27.9-34.1); MEAN CELL VOLUME 89.3 fL (81.5-99.8); MEAN PLATELET VOLUME 10.4 fL (8.7-11.7); PLATELET CLUMPS FLAG 10 (0-99); PLATELET COUNT 88 10^3/uL (150-400); RED CELL DISTRIBUTION WIDTH 14.3 % (11.5-15.2)
[2017-02-26] MEDS: ASPIRIN 325 MG TAB TUBE SCH (08:11)
[2017-02-26] MEDS: CHLORHEXIDINE GLUCONATE 15 ML UDL PO SCH ×2 (08:11→19:21)
[2017-02-26] MEDS: AMIODARONE HCL 200 MG TAB TUBE SCH (08:11)
[2017-02-26] MEDS: PRASUGREL HCL 10 MG TAB TUBE SCH (08:12)
[2017-02-26 08:13] LABS: LEFT SHIFT FLG 190 (0-99)
[2017-02-26 08:14] LABS: MAGNESIUM 2.3 mg/dL (1.6-2.3); POTASSIUM 3.8 mEq/L (3.5-5.2)
[2017-02-26] MEDS ORDERED: POTASSIUM Cl (KCl) 50 ML IV ONE ×3 (09:11→17:42)
[2017-02-26] MEDS: FAMOTIDINE 20 MG/NACL 50 ML IV SCH ×2 (09:12→20:53)
--- NOTE | 2017-02-26 09:33 | NEUSURGPN ---
Assessment/Plan: 81 y/o male whose DBS generator case was aborted after he became bradycardiac, lost pulse and code after intubation. -Cardiac status improving per RN. possible extubation later today -Currently intubated/sedated, has been following commands per RN -Appreciate Critical care/cardiology management -OK from NS standpoint to resume parkinsons meds -Please notify NS with any change in neuro/motor exam Subjective: Unable to obtain. Objective: Intubated on sedation VSS Afebrile Moving legs spontaneously Urinary Catheter in Place: Yes Urinary Catheter Indication: Other (Use Comment) (intubated) Catheter Insertion Date: 02/22/17 Neurosurgery Physical Exam - Vitals, I&O, Labs I and O 02/25/17 02/26/17 02/27/17 05:59 05:59 05:59 Intake Total 3334 995 Output Total 765 2650 Balance 2569 -1655 Intake: IV Intake (ml) 1434 IV Infused (ml) 1900 880 Albumin 25% 100 ml @ As 100 Directed IV [facility]CE [facility] Rx#: [id number] Amiodarone HCl 200 ml @ 290 120 33.333 mls/hr IV [facility]CE [facility] Rx#:[id number] Amiodarone HCl 540 mg In 176 D5w 300 ml @ 16.667 mls/ hr IV ONCE@1730 [facility] Rx#: [id number] D5w 1,000 ml @ 25 mls/hr 180 IV CONT [facility] Rx#: [id number] EPINEPHrine 1 mg In D5w 425 250 ml @ Per Protocol IV CONT [facility] Rx#:[id number] EPINEPHrine 2 mg In D5w 80 19 500 ml @ Per Protocol IV CONT [facility] Rx#:[id number] Insulin Regular Human 100 39 9 unit In Ns 100 ml @ As Directed IV AD [facility] Rx#: [id number] Ns 1,000 ml @ 100 mls/hr 400 IV CONT [facility] Rx#: [id number] Propofol/Emulsion 100 ml 137 28 @ Per Protocol IV CONT [facility] Rx#:[id number] Vasopressin/Dextrose 250 510 97 ml @ Titrate IV CONT [facility] Rx#:[id number] fentaNYL/NACL 100 ml @ 143 27 Per Protocol IV CONT [facility] Rx#:[id number] Tube Feeding (ml) 85 Tube Flush (ml) 30 Output: Urine (ml) 565 2650 Catheter 565 2650 NG Drainage (ml) 200 Large Bore (>12 Macedonian) 200 Left Naris Stomach Microbiology 02/24/17 15:00 Gram Stain - Final Lung Right Lower Lobe - Bronchial Washings Vital Signs Temp Pulse Resp BP Pulse Ox 37.7 C 63 20 115/38 L 96 02/26/17 09:00 02/26/17 09:00 02/26/17 09:00 02/26/17 09:00 02/26/17 09:00 Laboratory Results 02/26/17 04:15 ICD10 Worksheet Patient Problems: Problems Problem Status Onset S/P deep brain stimulator placement Acute
[2017-02-26 11:42] LABS: SCAN POSITIVE
[2017-02-26 11:44] LABS: MICROCYTES 1+; PLATELET ESTIMATE DECREASED (ADEQ); TOXIC GRANULATION PRESENT
--- NOTE | 2017-02-26 12:01 | PDCARPN ---
Cardiology Progress Note Assessment/Plan: 82-year-old male with history of CAD who was scheduled for implantation of a pulse generator as the final stage of a 3-step process for deep brain stimulation in the setting of Parkinson's disease. Immediately after anesthesia was induced but prior to the initiation of the implant procedure, the patient sustained a cardiac arrest which was initially bradycardic. He received CPR and responded to epinephrine. Did receive a shock during his resuscitation for wide- complex tachycardia. However, the rhythm in question may have been atrial fibrillation with a markedly rapid ventricular response secondary to epinephrine in the setting of an underlying bundle branch block. Taken to cardiac lab specialist where he was found to have multivessel [place] CAD and thrombotic occlusion of the SVG to RCA which was treated with PCI and placement of 3 drug-eluting stents. Non-ST Segment Elevation Myocardial Infarction- treated with PCI of a thrombotically occluded saphenous vein graft to the RCA. Peak CPK relatively modest at 617. Coronary Artery Disease- remote history of a five-vessel CABG and several subsequent PCI procedures. AL was likely precipitated by interruption of chronic dual antiplatelet therapy for his implant procedure. DAPT now consists of aspirin and Effient. Genetic testing for clopidogrel metabolism pending. Resume his usual secondary prevention meds (metoprolol/lisinopril/atorvastatin) once extubated and able to swallow. Ischemic Cardiomyopathy- LVEF 30-35%; I suspect most of this is chronic; not demonstrating any decompensation with respect to CHF. BNP modestly increased at 1630. Chest x-ray without pulmonary edema. Hypotension- resolved; is off of intravenous epinephrine and vasopressin; maintained normal B/P for over 3 hours with IABP at 1:4 IABP removed and Femostop compression device placed. RFA sheath can be removed shortly. Paroxysmal Atrial Fibrillation- episode of PAF evening of 02/23 with mildly rapid ventricular response; converted to NSR with IV amiodarone; maintaining NSR on amiodarone 200 mg QD via NGT. I do not believe PAF is part of his prior history. Would continue PO amiodarone for a few weeks and then decide about chronic use. [id number] score of at least 4; consider systemic anticoagulation as condition improves. Neurologic Status- patient following commands when sedation is lightened; hopefully will be extubated soon. 02/26/17 12:02 Subjective: Intubated and sedated. Reviewed/Discussed With: family, hospitalist Objective: Vital Signs (8 Hrs) Temp Pulse Resp BP Pulse Ox 02/26/17 11:00 37.4 C 68 15 153/53 H 99 02/26/17 09:59 37.3 C 68 10 L 148/52 H 97 02/26/17 09:00 37.7 C 63 20 115/38 L 96 02/26/17 08:20 58 L 99 02/26/17 08:00 37.7 C 65 20 139/51 H 97 Intake/Output (24 Hrs) 02/25/17 02/26/17 02/27/17 05:59 05:59 05:59 Intake Total 3334 995 Output Total 765 2650 Balance 2569 -1655 Intake: IV Intake (ml) 1434 IV Infused (ml) 1900 880 Albumin 25% 100 ml @ As 100 Directed IV ONCE ONE Rx#: [id number] Amiodarone HCl 200 ml @ 290 120 33.333 mls/hr IV ONCE ONE Rx#:[id number] Amiodarone HCl 540 mg In 176 D5w 300 ml @ 16.667 mls/ hr IV ONCE@1730 ONE Rx#: [id number] D5w 1,000 ml @ 25 mls/hr 180 IV CONT KATHERIN Rx#: [id number] EPINEPHrine 1 mg In D5w 425 250 ml @ Per Protocol IV CONT KATHERIN Rx#:[id number] EPINEPHrine 2 mg In D5w 80 19 500 ml @ Per Protocol IV CONT KATHERIN Rx#:[id number] Insulin Regular Human 100 39 9 unit In Ns 100 ml @ As Directed IV AD KATHERIN Rx#: [id number] Ns 1,000 ml @ 100 mls/hr 400 IV CONT KATHERIN Rx#: [id number] Propofol/Emulsion 100 ml 137 28 @ Per Protocol IV CONT KATHERIN Rx#:[id number] Vasopressin/Dextrose 250 510 97 ml @ Titrate IV CONT KATHERIN Rx#:[id number] fentaNYL/NACL 100 ml @ 143 27 Per Protocol IV CONT KATHERIN Rx#:[id number] Tube Feeding (ml) 85 Tube Flush (ml) 30 Output: Urine (ml) 565 2650 Catheter 565 2650 NG Drainage (ml) 200 Large Bore (>12 Amharic) 200 Left Naris Stomach Result Diagrams: 02/26/17 04:15 02/26/17 04:15 Cardiac Labs: Cardiac Lab Results (72 Hrs) 02/23/17 13:16 CK-MB (CK-2) Fraction 23.90 H Troponin I 16.700 H - Physical Exam Constitutional: other (Intubateed and sedated.) Eyes: anicteric sclera Ears, Nose, Mouth, Throat: moist mucous membranes Cardiovascular: regular rate and rhythm, no murmurs, no rubs, no gallops Respiratory: clear to auscultate bilat (anteriorly) Gastrointestinal: normoactive bowel sounds, no masses Skin: no rashes, no edema Neurologic: other (Follows commands and signals "thumbs-up".) ICD10 Worksheet Patient Problems: Problems Problem Status Onset S/P deep brain stimulator placement Acute
[2017-02-26] MEDS ORDERED: IPRATROPIUM/ALBUTEROL 3 ML DEYVIAL ONE (12:08)
--- NOTE | 2017-02-26 12:37 | CPR ---
[f rep st] NONINVASIVE CARDIAC PROCEDURE REPORT DATE OF PROCEDURE: 02/26/2017 PROCEDURE PERFORMED: Removal of intra-aortic balloon pump. DETAILS OF PROCEDURE: The patient had an intra-aortic balloon pump placed on February 22 during his ca rdiac catheterization and PCI following an intraoperative cardiac arrest. In the initial part of [facility] hospital course, he required intravenous pressors in addition to his balloon pump. He has now bee n weaned off intravenous pressors and for the past 3 hours has maintained a normal blood pressure wi th an augmentation ratio of 1:4. The right groin was prepped with a ChloraPrep swab stick. 2% lidocaine was infiltrated into the lef t femoral area. The helium line to the balloon lumen was disconnected. The arterial monitoring prince e was disconnected and blood was aspirated from the central lumen of the balloon pump catheter. The balloon pump catheter was removed and a FemoStop compression device was placed. Hemostasis was ach ieved with the FemoStop in place and the patient had an easily palpable posterior tibial pulse. CONCLUSION: Uneventful removal of an intra-aortic balloon pump catheter. /[id number]/MODL
--- NOTE | 2017-02-26 14:26 | PDINTPN ---
Linux Developer Progress Note Assessment/Plan: Assessment/plan: 81 M with Parkinsons disease admitted 02/22/17 for placement of deep brain stimulator generator, complicated by bradycardic arrest after induction of anesthesia. He likely had a cardiac ischmic event as he had known CAD with a remote 5v CABG and had anticoagulation held for surgery. He had intermittent CPR and one shock for VT over about 45 minutes before proceeding to the radiographer cardiac catheterization on an epinephrine drip. He had patent grafts to his LAD and OM, but an occluded RCA graft that was stented x 3 followed by placement of an IABP. He arrived in the ICU on an epi drip as well and has a reported EF of 35%. * Cardiac arrest 2/2 acute NSTEMI- Continued improvement and expect to dc IABP. Epi off and hemodynamically stable. * Cardiogenic shock- He responded somewhat to IVF and vasopressin. * Respiratory failure with hypoxemia and ventilator dependence- Started weaning this am without difficulty. Once balloon pump dc'd may extubate today. * DULCE- creatinine gera up to 1.4, but decreased. UOP adequate * WBC- likely stress reaction. No evidence of infection at this time * Hyponatremia- likely 2/2 CHF. Normalized * Thrombocytopenia- most likely from IABP. No active DIC and HIT less likely. Improving * critical care time 35 minutes 02/25/17 14:56 02/26/17 14:24 Objective: Vital Signs Temp Pulse Resp BP Pulse Ox 37.4 C 67 15 153/51 H 99 02/26/17 14:00 02/26/17 14:00 02/26/17 14:00 02/26/17 14:00 02/26/17 14:00 Microbiology 02/24/17 15:00 Gram Stain - Final Lung Right Lower Lobe - Bronchial Washings Laboratory Results 02/26/17 04:15 02/26/17 04:15 02/25/17 02/26/17 02/27/17 05:59 05:59 05:59 Intake Total 3334 995 250 Output Total 765 2650 450 Balance 2569 -1655 -200 PT 16.7 SEC (12.0-15.0) H 02/25/17 08:35 INR 1.35 (0.83-1.16) H 02/25/17 08:35 Physical Exam - Physical Exam General Appearance: no apparent distress, other (sedated) EENT: PERRL/EOMI, anisocoria Neck: supple Respiratory: lungs clear, normal breath sounds, No respiratory distress Cardiac/Chest: regular rate, rhythm, No edema Abdomen: non-tender, soft, No distended Skin: normal color, warm/dry Lymphatic: no adenopathy Extremities: No pedal edema Neuro/Psych: No abnormal educational aide II-XII ICD10 Worksheet Patient Problems: Problems Problem Status Onset S/P deep brain stimulator placement Acute
[2017-02-26] MEDS: IPRATROPIUM/ALBUTEROL 3 ML DEYVIAL IH SCH (17:06)
[2017-02-26] MEDS: ENOXAPARIN 30 MG/0.3 ML SYR SC SCH (20:52)
[2017-02-27] MEDS: PIPERACILLIN/TAZO 3.375 GM/DEX 50 ML IV SCH ×3 (01:07→16:43)
[2017-02-27] MEDS: IPRATROPIUM/ALBUTEROL 3 ML DEYVIAL IH SCH ×3 (01:42→12:39)
[2017-02-27 04:56] LABS: % IMMATURE GRANULYOCYTES 1.8 % (0.0-1.1); ABSOLUTE IMMATURE GRANULOCYTES 0.08 10^3/uL (0.00-0.10); ADD DIFF? NO; ADD MORPH? NO; ADD SCAN? NO; ATYPICAL LYMPHOCYTE FLAG 20 (0-99); FRAGMENT RBC FLAG 0 (0-99); HEMATOCRIT 25.7 % (40.0-51.0); HEMOGLOBIN 8.6 g/dL (13.7-17.5); LEFT SHIFT FLG 30 (0-99); LIPEMIA HEMOLYSIS FLAG 80 (0-99); MEAN CELL HEMOGLOBIN 30.5 pg (27.9-34.1); MEAN CELL HEMOGLOBIN CONCENTR. 33.5 g/dL (32.4-36.7); MEAN CELL VOLUME 91.1 fL (81.5-99.8); MEAN PLATELET VOLUME 10.5 fL (8.7-11.7); PLATELET CLUMPS FLAG 10 (0-99); PLATELET COUNT 89 10^3/uL (150-400); RED BLOOD CELL COUNT 2.82 10^6/uL (4.40-6.38); RED CELL DISTRIBUTION WIDTH 14.6 % (11.5-15.2)
[2017-02-27 05:01] LABS: MAGNESIUM 2.3 mg/dL (1.6-2.3); POTASSIUM 3.8 mEq/L (3.5-5.2)
[2017-02-27] MEDS ORDERED: POTASSIUM Cl (KCl) 50 ML IV ONE (05:03)
[2017-02-27 05:42] LABS: ANION GAP 6 mEq/L (8-16); CARBON DIOXIDE 25 mEq/l (22-31); CHLORIDE 110 mEq/L (97-110); CREATININE 0.7 mg/dL (0.7-1.3); GLOMERULAR FILTRATION RATE > 60; GLUCOSE 210 mg/dL (70-100); POTASSIUM 3.9 mEq/L (3.5-5.2); SODIUM 141 mEq/L (134-144)
--- NOTE | 2017-02-27 07:04 | NEUSURGPN ---
Assessment/Plan: Assessment: 81 y/o male whose DBS generator case was aborted after he became bradycardiac, lost pulse and code after intubation. Plan: -Cardiac status improving per RN. possible extubation later today -Currently intubated/sedated, has been following commands per RN/my exam -Appreciate Critical care/cardiology management -OK from NS standpoint to resume Parkinsons meds -Please notify NS with any change in neuro/motor exam Subjective: No new events or issues per RN. Plan for extubation today. Objective: Intubated on sedation will follow commands by higher education administrator bilaterally opens eyes to verbal VSS Afebrile Moving legs spontaneously Neuro Check Frequency: per routine Urinary Catheter in Place: Yes Urinary Catheter Indication: Surgical Requirement (intubated and sedated) Catheter Insertion Date: 02/22/17 - Physician Discussed Patient with : Paul Neurosurgery Physical Exam - Vitals, I&O, Labs I and O 02/26/17 02/27/17 02/28/17 05:59 05:59 05:59 Intake Total 995 2322 Output Total 2650 1015 Balance -1655 1307 Weight 75.2 kg Intake: IV Intake (ml) 724 IV Infused (ml) 880 460 Amiodarone HCl 200 ml @ 120 33.333 mls/hr IV ONCE ONE Rx#:[id number] D5w 1,000 ml @ 25 mls/hr 180 IV CONT KATHERIN Rx#: [id number] EPINEPHrine 2 mg In D5w 19 500 ml @ Per Protocol IV CONT KATHERIN Rx#:[id number] Insulin Regular Human 100 9 unit In Ns 100 ml @ As Directed IV AD KATHERIN Rx#: [id number] Ns 1,000 ml @ 100 mls/hr 400 400 IV CONT KATHERIN Rx#: [id number] Propofol/Emulsion 100 ml 28 @ Per Protocol IV CONT KATHERIN Rx#:[id number] Vasopressin/Dextrose 250 97 ml @ Titrate IV CONT KATHERIN Rx#:[id number] fentaNYL/NACL 100 ml @ 27 60 Per Protocol IV CONT KATHERIN Rx#:[id number] Tube Feeding (ml) 85 688 Tube Flush (ml) 30 450 Output: Urine (ml) 2650 1015 Catheter 2650 1015 Other: Number of Stools Catheter 0 Microbiology 02/24/17 15:00 Gram Stain - Final Lung Right Lower Lobe - Bronchial Washings Vital Signs Temp Pulse Resp BP Pulse Ox 37.5 C 76 9 L 137/36 H 97 02/27/17 06:00 02/27/17 06:30 02/27/17 06:00 02/27/17 06:00 02/27/17 06:30 Laboratory Results 02/27/17 04:30 02/27/17 04:30 ICD10 Worksheet Patient Problems: Problems Problem Status Onset S/P deep brain stimulator placement Acute
[2017-02-27] MEDS: fentaNYL/NACL 100 ML IV SCH (08:57)
[2017-02-27] MEDS: FAMOTIDINE 20 MG/NACL 50 ML IV SCH ×2 (08:59→19:30)
[2017-02-27] MEDS: ENOXAPARIN 30 MG/0.3 ML SYR SC SCH ×2 (09:01→19:29)
[2017-02-27] MEDS: ASPIRIN 325 MG TAB TUBE SCH (09:02)
[2017-02-27] MEDS: CHLORHEXIDINE GLUCONATE 15 ML UDL PO SCH ×2 (09:02→19:27)
[2017-02-27] MEDS: INSULIN LISPRO 100 UNIT/ML SC SCH ×3 (09:02→18:23)
[2017-02-27] MEDS: PRASUGREL HCL 10 MG TAB TUBE SCH (09:02)
[2017-02-27] MEDS: AMIODARONE HCL 200 MG TAB TUBE SCH (09:03)
[2017-02-27] MEDS ORDERED: POTASSIUM CL 10 MEQ TAB PO ONE ×2 (09:21→19:26)
[2017-02-27] MEDS ORDERED: LISINOPRIL 5 MG TAB PO SCH (11:30)
[2017-02-27] MEDS ORDERED: LIDOCAINE 1% 30 ML SDV MISC ONE (12:46)
[2017-02-27] MEDS ORDERED: BENZOCAINE UNIT DOSE SPRAY HURRICAINE MM ONE (12:46)
[2017-02-27] MEDS ORDERED: LIDOCAINE 2% JELLY 5 ML TUBE TP ONE (12:46)
[2017-02-27 14:10] LABS: 2C19S INTERPRETATION See Comments
[2017-02-27] MEDS ORDERED: FUROSEMIDE 40 MG/4 ML VIAL IVP ONE (14:38)
--- NOTE | 2017-02-27 14:45 | PDINTPN ---
Environmental Protection Economist Progress Note Assessment/Plan: Assessment: 81 M with Parkinsons disease admitted 02/22/17 for placement of deep brain stimulator generator, complicated by bradycardic arrest after induction of anesthesia. He likely had a cardiac ischemic event as he had known CAD with a remote 5v CABG and had anticoagulation held for surgery. He had intermittent CPR and one shock for VT over about 45 minutes before proceeding to the laborer concrete plant on an epinephrine drip. He had patent grafts to his LAD and OM, but an occluded RCA graft that was stented x 3 followed by placement of an IABP. He arrived in the ICU on an epi drip as well and has a reported EF of 35%. * Cardiac arrest 2/2 acute NSTEMI- IABP out, Epi off and hemodynamically stable. * Cardiogenic shock- He responded somewhat to IVF and vasopressin. Now BP good and CXR may demonstrate some pulmonary edema. His Is and Os are 6 liters positive. * Respiratory failure with hypoxemia and ventilator dependence- Tolerating CPAP well, but CXR looks worse. * DULCE- Resolved * Hyponatremia- likely 2/2 CHF. Normalized * Thrombocytopenia- most likely from IABP. No active DIC and HIT less likely. Improving slowly * Anemia: Hgb stable over the last 2 days. No signs of active bleeding. Plan: Bronchoscopy, then probably extubate. Dose of Lasix. Repeat BNP. D/W RN, RT, family. Discussed timing of generator placement with Dr. Gallegos, he'll contact Dr. Miller to discuss necessity of continuing antiplatelet therapy. 02/27/17 14:46 Subjective: Intubated, sedated Objective: Vital Signs Temp Pulse Resp BP Pulse Ox 37.2 C 71 18 153/49 H 99 02/27/17 13:44 02/27/17 13:44 02/27/17 13:44 02/27/17 13:44 02/27/17 13:44 Microbiology 02/24/17 15:00 Gram Stain - Final Lung Right Lower Lobe - Bronchial Washings Laboratory Results 02/27/17 04:30 02/27/17 04:30 02/26/17 02/27/17 02/28/17 05:59 05:59 05:59 Intake Total 995 2322 549 Output Total 2650 1015 Balance -1655 1307 549 PT 16.7 SEC (12.0-15.0) H 02/25/17 08:35 INR 1.35 (0.83-1.16) H 02/25/17 08:35 CXR: Increased bilateral infiltrates, ? pulmonary edema vs. pneumonia. Images reviewed. ICD10 Worksheet Patient Problems: Problems Problem Status Onset S/P deep brain stimulator placement Acute
--- NOTE | 2017-02-27 15:22 | SOAPPROG ---
SOAP Progress Note Assessment/Plan: Assessment: 1. Coronary artery disease with previous bypass surgery. 2. Recent cardiac arrest in the setting of anesthesia induction. Initially had a bradycardic arrest in the setting of a thrombotically occluded graft to the right coronary artery. Status post PCI and stenting. 3. Ischemic cardiomyopathy. 4. Paroxysmal atrial fibrillation. 5. Abnormal ECG indicating trifascicular block. Plan: 1. At this point he appears to be stable. I think we are at a point now where we can start to initiate conventional heart failure medications. 2. I have written for lisinopril 5 mg daily. He will continue with amiodarone and dual anti-platelet therapy. 3. At some point here in the near future I would like to start him on spironolactone. I will wait and see how she does following extubation. 4. I did talk to Neurosurgery. Unfortunately, given his most recent event, I do not think that he is a candidate to have his deep brain stimulator generator implanted for period of at least 6-12 months following this event. 02/27/17 15:29 Subjective: The patient was seen and examined. His chart was reviewed. Today, he appears to be doing very well. There are plans for him to potentially be extubated. He is hemodynamically stable off of all pressors. Urine output has been excellent. Oxygen requirements are minimal. He has not manifested any near term dysrhythmias. Objective: Vital Signs Temp Pulse Resp BP Pulse Ox 37.2 C 71 18 153/49 H 99 02/27/17 13:44 02/27/17 13:44 02/27/17 13:44 02/27/17 13:44 02/27/17 13:44 Microbiology 02/24/17 15:00 Gram Stain - Final Lung Right Lower Lobe - Bronchial Washings Laboratory Results 02/27/17 04:30 02/27/17 04:30 02/26/17 02/27/17 02/28/17 05:59 05:59 05:59 Intake Total 995 2322 549 Output Total 2650 1015 Balance -1655 1307 549 PT 16.7 SEC (12.0-15.0) H 02/25/17 08:35 INR 1.35 (0.83-1.16) H 02/25/17 08:35 Physical Exam - Physical Exam General Appearance: WD/WN, no apparent distress, other ( He is intubated and sedated) EENT: ET tube Respiratory: lungs clear ( anterior exam) Cardiac/Chest: regular rate, rhythm, No edema, No gallop, No bradycardia, No tachycardia, No diastolic murmur, No systolic murmur Abdomen: normal bowel sounds Neuro/Psych: other ( sedated and intubated) ICD10 Worksheet Patient Problems: Problems Problem Status Onset S/P deep brain stimulator placement Acute
[2017-02-27 19:04] LABS: POTASSIUM 3.8 mEq/L (3.5-5.2)
[2017-02-27] MEDS: ACETAMINOPHEN 650 MG/20.3 ML UDCUP TUBE PRN (19:29)
[2017-02-27] MEDS ORDERED: POTASSIUM CL 20 MEQ/15 ML UDCUP PO ONE (19:45)
--- NOTE | 2017-02-27 20:02 | GPN ---
[f rep st] PROCEDURE NOTE DATE OF PROCEDURE: 02/27/2017 PROCEDURE: Flexible fiberoptic bronchoscopy. REASON FOR THE PROCEDURE: Respiratory failure with mucus plugging. DESCRIPTION OF PROCEDURE: The risks and benefits of the procedure were explained to the patient's w coleen, who agreed to proceed. The entire procedure was performed in the intensive care unit with the patient under blood pressure, EKG, and oximetry monitoring. It was my assessment there was no risk of airborne infection, as the patient has previously had a bronchoscopy and is known to have mucus p lugging from a bacterial source. After an appropriate time-out, 4 cc of 1% lidocaine was instilled into the patient's endotracheal tube. The bronchoscope was advanced through the endotracheal tube a nd appropriate position of the endotracheal tube in distal trachea was confirmed. The bronchoscope was advanced into the airways bilaterally. I encountered a moderate amount of thin purulent secreti ons. These were easily suctioned and primarily were coming from the lower lobes bilaterally. A sma ll volume lavage was performed of both lower lobes. All airways were clear of secretions at the end of the procedure. The airways were somewhat erythematous, but there was no significant hemorrhage with the bronchoscopy. Anatomy was normal and there were no endobronchial lesions. No specimens we re sent. The patient tolerated the procedure well with good saturations throughout. /[id number]/MODL
[2017-02-28] MEDS: PIPERACILLIN/TAZO 3.375 GM/DEX 50 ML IV SCH ×3 (00:45→17:48)
[2017-02-28 03:51] LABS: ADD DIFF? YES; ADD MORPH? NO; ADD SCAN? NO; FRAGMENT RBC FLAG 0 (0-99); HEMATOCRIT 26.9 % (40.0-51.0); HEMOGLOBIN 8.8 g/dL (13.7-17.5); LEFT SHIFT FLG 40 (0-99); LIPEMIA HEMOLYSIS FLAG 80 (0-99); MEAN CELL HEMOGLOBIN CONCENTR. 32.7 g/dL (32.4-36.7)
[2017-02-28 04:00] LABS: ATYPICAL LYMPHOCYTE FLAG 60 (0-99); MEAN CELL HEMOGLOBIN 30.1 pg (27.9-34.1); MEAN CELL VOLUME 92.1 fL (81.5-99.8); MEAN PLATELET VOLUME 10.6 fL (8.7-11.7); PLATELET CLUMPS FLAG 0 (0-99); PLATELET COUNT 115 10^3/uL (150-400); RED BLOOD CELL COUNT 2.92 10^6/uL (4.40-6.38)
[2017-02-28 04:05] LABS: MAGNESIUM 2.2 mg/dL (1.6-2.3); POTASSIUM 4.3 mEq/L (3.5-5.2)
[2017-02-28 04:57] LABS: PLATELET ESTIMATE DECREASED (ADEQ)
[2017-02-28] MEDS: INSULIN LISPRO 100 UNIT/ML SC SCH ×3 (06:24→17:53)
--- NOTE | 2017-02-28 07:47 | NEUSURGPN ---
Assessment/Plan: Assessment: 81 y/o male whose DBS generator case was aborted after he became bradycardiac, lost pulse and code after intubation. Plan: -Cardiac status improving. Still not extubated. Hopeful for extubation later today -Currently intubated/sedated, has been following commands per RN/my exam -Appreciate Critical care/cardiology management -OK from NS standpoint to resume Parkinsons meds -Please notify NS with any change in neuro/motor exam Subjective: Intubated. Objective: Intubated on sedation will follow commands by recreation superintendent bilaterally opens eyes to verbal but does not track VSS Afebrile Moving legs spontaneously Catheter Insertion Date: 02/22/17 - Physician Discussed Patient with : Paul Neurosurgery Physical Exam - Vitals, I&O, Labs I and O 02/27/17 02/28/17 03/01/17 05:59 05:59 05:59 Intake Total 2322 2452 Output Total 1015 3330 Balance 1307 -878 Weight 75.2 kg 76.5 kg Intake: IV Intake (ml) 724 530 IV Infused (ml) 460 67 Ns 1,000 ml @ 100 mls/hr 400 IV CONT KATHERIN Rx#: [id number] fentaNYL/NACL 100 ml @ 60 67 Per Protocol IV CONT KATHERIN Rx#:[id number] Tube Feeding (ml) 688 1424 Tube Flush (ml) 450 431 Output: Urine (ml) 1015 3330 Catheter 1015 3330 Other: Number of Stools Catheter 0 0 Microbiology 02/24/17 15:00 Gram Stain - Final Lung Right Lower Lobe - Bronchial Washings Bronchial Washings Culture - Final Serratia Marcescens Vital Signs Temp Pulse Resp BP Pulse Ox 37.7 C 97 14 138/43 H 96 02/28/17 06:00 02/28/17 06:00 02/28/17 06:00 02/28/17 06:00 02/28/17 06:00 Laboratory Results 02/28/17 03:30 02/28/17 03:30 ICD10 Worksheet Patient Problems: Problems Problem Status Onset S/P deep brain stimulator placement Acute
[2017-02-28] MEDS: CHLORHEXIDINE GLUCONATE 15 ML UDL PO SCH ×2 (08:49→21:13)
[2017-02-28] MEDS ORDERED: LISINOPRIL 5 MG TAB TUBE SCH (09:00)
[2017-02-28] MEDS: ENOXAPARIN 30 MG/0.3 ML SYR SC SCH ×2 (09:47→21:13)
[2017-02-28] MEDS: FAMOTIDINE 20 MG/NACL 50 ML IV SCH ×2 (09:47→21:13)
[2017-02-28] MEDS: ATORVASTATIN CALCIUM 40 MG TAB TUBE SCH (09:47)
[2017-02-28] MEDS: ASPIRIN 325 MG TAB TUBE SCH (09:47)
[2017-02-28] MEDS: AMIODARONE HCL 200 MG TAB TUBE SCH (09:48)
[2017-02-28 10:42] LABS: HEPARIN INDUCED ANTIBODY Negative (Negative); HEPARIN-PF4 IgG ANTIBODY ELISA < 0.075 OD (<0.400)
--- NOTE | 2017-02-28 11:32 | PDINTPN ---
Ranger Aide Progress Note Assessment/Plan: Assessment: 81 M with Parkinson's disease admitted 02/22/17 for placement of deep brain stimulator generator, complicated by bradycardic arrest after induction of anesthesia. He likely had a cardiac ischemic event as he had known CAD with a remote 5v CABG and had anticoagulation held for surgery. He had intermittent CPR and one shock for VT over about 45 minutes before proceeding to the cleaning laborer on an epinephrine drip. He had patent grafts to his LAD and OM, but an occluded RCA graft that was stented x 3 followed by placement of an IABP. He arrived in the ICU on an epi drip as well and has a reported EF of 35%. * Cardiac arrest 2/2 acute NSTEMI- IABP out, Epi off and hemodynamically stable. * Cardiogenic shock- He responded somewhat to IVF and vasopressin. Now BP good and CXR may demonstrate some pulmonary edema. His I/O is 5 liters positive. * Ischemic CM: Vitals OK. May have some pulmonary edema. * Respiratory failure with hypoxemia and ventilator dependence. Fair amount of thin purulent secretions. Tolerating CPAP well. * DULCE- Resolved * Hyponatremia- likely 2/2 CHF. Normalized * Thrombocytopenia- most likely from IABP. No active DIC and HIT less likely. Improving, now near normal. * Anemia: Hgb stable over the last several days. No signs of active bleeding. * Hyperglycemia: Still high on low-dose DDI * Parkinson's: Currently not on meds. * Nutrition: On TF. Plan: Extubate. Dose of Lasix. Startin CHF Rx per Dr. Gallegos. Repeat BNP. Jessica blue, then consider starting PO meds vs. IV. D/W RN, RT, family. Generator placement probably won't be possible for at least 3 months. 02/28/17 11:53 Subjective: Intubated, following simple commands. Objective: Vital Signs Temp Pulse Resp BP Pulse Ox 37.7 C 90 17 145/74 H 96 02/28/17 08:00 02/28/17 09:06 02/28/17 09:06 02/28/17 09:47 02/28/17 09:06 Microbiology 02/24/17 15:00 Gram Stain - Final Lung Right Lower Lobe - Bronchial Washings Bronchial Washings Culture - Final Serratia Marcescens Laboratory Results 02/28/17 03:30 02/28/17 03:30 02/27/17 02/28/17 03/01/17 05:59 05:59 05:59 Intake Total 2325 4652 Output Total 1017 2771 Balance 1307 -878 PT 16.7 SEC (12.0-15.0) H 02/25/17 08:35 INR 1.35 (0.83-1.16) H 02/25/17 08:35 Physical Exam - Physical Exam General Appearance: alert, no apparent distress EENT: normal ENT inspection Neck: normal inspection Respiratory: lungs clear, normal breath sounds Cardiac/Chest: regular rate, rhythm, No edema Abdomen: non-tender, soft Skin: normal color, warm/dry Extremities: normal inspection Neuro/Psych: alert, normal mood/affect, oriented x 3 ICD10 Worksheet Patient Problems: Problems Problem Status Onset S/P deep brain stimulator placement Acute
[2017-02-28] MEDS: PRASUGREL HCL 10 MG TAB TUBE SCH (11:35)
[2017-02-28] MEDS: CARBIDOPA/LEVODOPA 25 MG/100 MG TAB TUBE SCH ×2 (12:24→17:53)
[2017-02-28] MEDS: FUROSEMIDE 40 MG/4 ML VIAL IVP SCH (12:42)
[2017-02-28] MEDS ORDERED: ALTEPLASE 2 MG VIAL IVP PRN (13:53)
--- NOTE | 2017-02-28 17:29 | SOAPPROG ---
SINDY Progress Note Assessment/Plan: Assessment: 1. Coronary artery disease with previous bypass surgery. 2. Recent cardiac arrest in the setting of anesthesia induction. Initially had a bradycardic arrest in the setting of a thrombotically occluded graft to the right coronary artery. Status post PCI and stenting. 3. Ischemic cardiomyopathy. 4. Paroxysmal atrial fibrillation. 5. Abnormal ECG indicating trifascicular block. Overall, he appears stable at the present time . I did talk to Neurosurgery. For the near future his neurostimulator generator implantation will have to be delayed for at least 3 months and possibly up to 12 months. Plan: 1. Today I increased his lisinopril up to 10 mg daily. 2. I think read a point now where we should consider initiation of systemic anticoagulation in light of his atrial arrhythmias. This can be discussed tomorrow. 3. There are plans for him to be extubated. 4. We will follow along. 5. I will order an echocardiogram to reassess his LV function.02/28/17 17:28 Subjective: He has remained stable overnight. Today, he is in atrial fibrillation however rate controlled and hemodynamically stable. There are plans for him to be extubated today. Yesterday he was started on a low-dose of MARCELLO inhibitor therapy. Objective: Vital Signs Temp Pulse Resp BP Pulse Ox 37.2 C 73 18 137/45 H 96 02/28/17 16:00 02/28/17 16:00 02/28/17 16:00 02/28/17 16:00 02/28/17 16:00 Microbiology 02/24/17 15:00 Gram Stain - Final Lung Right Lower Lobe - Bronchial Washings Bronchial Washings Culture - Final Serratia Marcescens Laboratory Results 02/28/17 03:30 02/28/17 03:30 02/27/17 02/28/17 03/01/17 05:59 05:59 05:59 Intake Total 2322 2452 Output Total 1015 3330 350 Balance 1307 -878 -350 PT 16.7 SEC (12.0-15.0) H 02/25/17 08:35 INR 1.35 (0.83-1.16) H 02/25/17 08:35 Physical Exam - Physical Exam General Appearance: WD/WN, no apparent distress, other ( Intubated/sedated) Respiratory: lungs clear Cardiac/Chest: irregularly irregular, No edema, No gallop, No JVD Peripheral Pulses: 2+: carotid (R), carotid (L) ICD10 Worksheet Patient Problems: Problems Problem Status Onset S/P deep brain stimulator placement Acute
[2017-03-01] MEDS: PIPERACILLIN/TAZO 3.375 GM/DEX 50 ML IV SCH ×3 (01:00→17:02)
[2017-03-01] MEDS: INSULIN LISPRO 100 UNIT/ML SC SCH ×4 (01:01→18:22)
[2017-03-01] MEDS: CARBIDOPA/LEVODOPA 25 MG/100 MG TAB TUBE SCH ×4 (01:03→17:02)
[2017-03-01 05:26] LABS: ALANINE AMINOTRANSFERASE 29 IU/L (21-72); ALBUMIN 2.5 g/dL (3.5-5.0); ALKALINE PHOSPHATASE 247 IU/L (38-126); ANION GAP 9 mEq/L (8-16); ASPARTATE AMINOTRANSFERASE 50 IU/L (17-59); BILIRUBIN,TOTAL 0.7 mg/dL (0.1-1.4); CALCIUM 8.5 mg/dL (8.5-10.4); CARBON DIOXIDE 31 mEq/l (22-31); CHLORIDE 106 mEq/L (97-110); CREATININE 0.7 mg/dL (0.7-1.3); GLOMERULAR FILTRATION RATE > 60; GLUCOSE 185 mg/dL (70-100); MAGNESIUM 2.2 mg/dL (1.6-2.3); POTASSIUM 4.3 mEq/L (3.5-5.2); SODIUM 146 mEq/L (134-144); TOTAL PROTEIN 4.7 g/dL (6.3-8.2)
[2017-03-01 05:55] LABS: ABSOLUTE IMMATURE GRANULOCYTES 0.18 10^3/uL (0.00-0.10); ABSOLUTE NRBC COUNT 0.02 10^3/uL (0-0.01); ADD DIFF? NO; ADD MORPH? NO; ADD SCAN? NO; ATYPICAL LYMPHOCYTE FLAG 50 (0-99); FRAGMENT RBC FLAG 0 (0-99); HEMATOCRIT 26.3 % (40.0-51.0); HEMOGLOBIN 8.5 g/dL (13.7-17.5); LEFT SHIFT FLG 60 (0-99); LIPEMIA HEMOLYSIS FLAG 80 (0-99); MEAN CELL HEMOGLOBIN 30.1 pg (27.9-34.1); MEAN CELL HEMOGLOBIN CONCENTR. 32.3 g/dL (32.4-36.7); MEAN CELL VOLUME 93.3 fL (81.5-99.8); MEAN PLATELET VOLUME 10.4 fL (8.7-11.7); NRBC-AUTO% 0.3 % (0.0-0.2); PLATELET CLUMPS FLAG 10 (0-99); PLATELET COUNT 153 10^3/uL (150-400); RED BLOOD CELL COUNT 2.82 10^6/uL (4.40-6.38); RED CELL DISTRIBUTION WIDTH 14.8 % (11.5-15.2)
--- NOTE | 2017-03-01 07:19 | NEUSURGPN ---
Assessment/Plan: Assessment: 81 y/o male whose DBS generator case was aborted after he became bradycardiac, lost pulse and code after intubation Plan: -Cardiac status improving. Extubated now -following commands per RN/my exam -pt with continued poor pulmonary status -appreciate critical care/cardiology management -OK from NS standpoint to resume Parkinsons meds -Please notify NS with any change in neuro/motor exam -will d/w IM/critical care to see if ok to sign off Subjective: Awake and alert. Follows commands. No new complaints or concerns. Objective: Extubated, awake and alert. 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 VSS Afebrile Moving spontaneously Neuro Check Frequency: per routine Urinary Catheter in Place: No Catheter Insertion Date: 02/22/17 - Physician Discussed Patient with : Paul Patient Seen by : Paul Neurosurgery Physical Exam - Vitals, I&O, Labs I and O 02/28/17 03/01/17 03/02/17 05:59 05:59 05:59 Intake Total 2452 2821 Output Total 3330 1999 Balance -878 821 Weight 76.5 kg 75.2 kg Intake: IV Intake (ml) 530 813 IV Infused (ml) 67 fentaNYL/NACL 100 ml @ 67 Per Protocol IV CONT KATHERIN Rx#:[id number] Tube Feeding (ml) 1424 1507 Tube Flush (ml) 431 501 Output: Urine (ml) 3330 1999 Catheter 3330 1999 Other: Number of Stools Catheter 0 Vital Signs Temp Pulse Resp BP Pulse Ox 37.8 C 76 27 H 127/56 H 98 03/01/17 04:00 03/01/17 06:00 03/01/17 06:00 03/01/17 06:00 03/01/17 06:00 Laboratory Results 03/01/17 05:30 03/01/17 04:40 ICD10 Worksheet Patient Problems: Problems Problem Status Onset S/P deep brain stimulator placement Acute
--- NOTE | 2017-03-01 08:36 | SOAPPROG ---
SINDY Progress Note Assessment/Plan: Assessment: 1. Coronary artery disease with previous bypass surgery. 2. Recent cardiac arrest in the setting of anesthesia induction. Initially had a bradycardic arrest in the setting of a thrombotically occluded graft to the right coronary artery. Status post PCI and stenting of the saphenous vein graft to the right coronary artery. 3. Ischemic cardiomyopathy. Ejection fraction of about 35%. 4. Paroxysmal atrial fibrillation. 5. Abnormal ECG indicating trifascicular block. Successfully extubated. Oxygenating well with stable hemodynamics. Plan: 1. I would like to formally review his echocardiogram done this morning. 2. I think we are at a point now where we need to consider systemic anticoagulation in light of his history of paroxysmal atrial fibrillation. 3. I will begin Aldactone at a dose of 25 mg daily. 4. Will follow along. 03/01/17 08:32 Subjective: Successfully extubated yesterday. He has been stable overnight. He remains in atrial fibrillation. He had an echocardiogram done this morning. Preliminary report indicates an improvement in his ejection fraction now within the normal range. Objective: Vital Signs Temp Pulse Resp BP Pulse Ox 37.8 C 83 29 H 150/49 H 93 03/01/17 08:00 03/01/17 08:00 03/01/17 08:00 03/01/17 08:00 03/01/17 08:00 Laboratory Results 03/01/17 05:30 03/01/17 04:40 02/28/17 03/01/17 03/02/17 05:59 05:59 05:59 Intake Total 2452 2821 Output Total 3330 2000 Balance -878 821 PT 16.7 SEC (12.0-15.0) H 02/25/17 08:35 INR 1.35 (0.83-1.16) H 02/25/17 08:35 Physical Exam - Physical Exam General Appearance: WD/WN, no apparent distress Respiratory: wheezing, No respiratory distress, No accessory muscle use, No decreased breath sounds, No crackles Cardiac/Chest: irregularly irregular Peripheral Pulses: 2+: carotid (R), carotid (L) Abdomen: non-tender Male Genitalia: deferred ICD10 Worksheet Patient Problems: Problems Problem Status Onset S/P deep brain stimulator placement Acute
[2017-03-01] MEDS: LISINOPRIL 5 MG TAB TUBE SCH (08:42)
[2017-03-01] MEDS: PRASUGREL HCL 10 MG TAB TUBE SCH (08:42)
[2017-03-01] MEDS: CHLORHEXIDINE GLUCONATE 15 ML UDL PO SCH (08:42)
[2017-03-01] MEDS: AMIODARONE HCL 200 MG TAB TUBE SCH (08:42)
[2017-03-01] MEDS: ENOXAPARIN 30 MG/0.3 ML SYR SC SCH ×2 (08:43→20:19)
[2017-03-01] MEDS: FAMOTIDINE 20 MG/NACL 50 ML IV SCH (08:43)
[2017-03-01] MEDS: ASPIRIN 325 MG TAB TUBE SCH (08:43)
[2017-03-01] MEDS: ATORVASTATIN CALCIUM 40 MG TAB TUBE SCH (08:43)
[2017-03-01] MEDS: FUROSEMIDE 40 MG/4 ML VIAL IVP SCH (08:44)
[2017-03-01] MEDS: SPIRONOLACTONE 25 MG TAB PO SCH (09:07)
--- NOTE | 2017-03-01 10:25 | ECHO ---
[id number] + + [address] : : [place] [address] : : [phone] + + Adult Echocardiographic Report + --------+ :Name: REMY DE LA GARZA STEPHANYjami Date: 03/01/2017 07:50 AM : : Hospital Admission Number: [id number] Locat ion: 255: :: 1935 Gender: Male Height: 67 in : :Age: 82 yrs Race: WH Weight: 168 l b : :Reason For Study: F/U LV Function : : BSA: 1.9 mete rs2 : :History: Eval LV Fx : + --------+ MMode/2D Measurements \T\ Calculations IVSd: 1.3 cm LVIDd: 4.6 cm FS: 33.1 % MV Diam: 3.1 cm LVPWd: 1.3 cm LVIDs: 3.1 cm EDV(Teich): 99.8 ml ESV(Teich): 38.2 ml EF(Teich): 61.8 % Ao root diam: 3.0 cm LVOT diam: 2.1 cm ACS: 1.9 cm LVOT area: 3.5 cm2 Normal Measurement Values: + + :LVIDd (3.5-5.7cm) IVSd (0.6-1.1cm) LVPWd (0.6-1.1cm) Aortic Root (2.0-3.7cm)Left Atrium (1.5-4.0cm): :LV Vol(d) (76-115ml) LV Vol(s) (29-48ml) Ejec Fraction (50-65%)PV Bean (0.6- 1.2m/s) TV Bean (0.4-1.0m/s) : :MV E Bean (0.8-1.0m/s)MV A Bean (0.3-1.0m/s)LVOT Bean (0.7-1.2m/s) Asc Ao Bean ( 0.9-1.8m/s) : + + Doppler Measurements \T\ Calculations MV E max bean: MV V2 max: Ao V2 max: AI max bean: 128.3 cm/sec 146.6 cm/sec 160.4 cm/sec 307.4 cm/sec MV max P.6 mmHg Ao max PG: AI max PG: MV V2 mean: 10.3 mmHg 37.8 mmHg 78.3 cm/sec Ao mean PG: AI dec slope: MV mean P.0 mmHg 3.3 mmHg Ao V2 mean: 109.0 cm/sec2 MV V2 VTI: 22.6 cm 104.6 cm/sec AI P1/2t: MV area (1 diam): Ao V2 VTI: 825.7 msec 28.3 cm 7.5 cm2 MVA(VTI): 2.2 cm2 VICTOR MANUEL(I,D): 1.8 cm2 MV Flow area (1diam): 7.5 cm2 LV V1 mean PG: MR max bean: MR(RF 1 diam): SV(MV 1 diam): 1.4 mmHg 407.6 cm/sec 18.9 % 170.6 ml LV V1 mean: MR max PG: SI(MV 1 diam): 54.3 cm/sec 66.5 mmHg LV V1 VTI: 14.5 cm 90.9 ml/m2 SV(LVOT): 50.3 ml PA V2 max: PI end-d bean: TR max bean: RF(MV,Ao)(1 diam): 81.4 cm/sec 186.0 cm/sec 325.8 cm/sec -0.19 PA max PG: TR max PG: RF(MV,LVOT)(1diam): 2.7 mmHg 42.5 mmHg 0.71 RAP systole: 5.0 mmHg RVSP(TR): 47.5 mmHg Left Ventricle The left ventricle is normal in size. There is mild concentric left ventricular hypertrophy. The left ventricular ejection fraction is normal. Ejection Fraction = 61%. The rhythm is atrial fibrillation. There is mild inferoseptal hypokinesis, and mid inferolateral hypokinesis. Right Ventricle The right ventricle is mildly dilated. The right ventricular systolic function is mildly reduced. Atria The left atrium is mildly dilated. Right atrial size is normal. Mitral Valve Calcified mitral apparatus. There is no mitral valve stenosis. There is mild mitral regurgitation. Tricuspid Valve There is mild tricuspid regurgitation. Right ventricular systolic pressure is 48mmHg. There is Doppler evidence for mild to moderate pulmonary hypertension. Aortic Valve The aortic valve is trileaflet. Mild Aortic Valve Calcification. There is no aortic stenosis. There is no aortic insufficiency. Pulmonic Valve The pulmonic valve is normal in structure and function. There is no pulmonic valvular regurgitation. Great Vessels The aortic root is normal size. Pericardium/Pleural There is no pericardial effusion. There is a moderate pleural effusion. Conclusion A complete two-dimensional transthoracic echocardiogram was performed (2D, M-mode, Doppler and color flow Doppler). The rhythm is atrial fibrillation. The left ventricular ejection fraction is normal. Ejection Fraction = 61%. There is mild concentric left ventricular hypertrophy. Mild inferior wall hypokinesis. The left atrium is mildly dilated. Mild aortic sclerosis and mitral annular calcification. There is mild mitral regurgitation. There is mild tricuspid regurgitation. Right ventricular systolic pressure is 48mmHg. There is no pericardial effusion. There likely is a moderate pleural effusion. Compared to a prior echo from 02/22/2017 there has been a significant improvement in the ejection fraction. Final Reading Physician: Dee Pablo signed on 03/01/2017 10:24 AM Ordering Physician: Ronak Gallegos Performed By: Junito Weldon, CS
[2017-03-01] MEDS: guaiFENesin 600 MG TAB.ER PO SCH ×2 (11:27→20:20)
--- NOTE | 2017-03-01 12:47 | PDINTPN ---
Graphic Specialist Progress Note Assessment/Plan: Assessment: 81 M with Parkinson's disease admitted 02/22/17 for placement of deep brain stimulator generator, complicated by bradycardic arrest after induction of anesthesia. He likely had a cardiac ischemic event as he had known CAD with a remote 5v CABG and had anticoagulation held for surgery. He had intermittent CPR and one shock for VT over about 45 minutes before proceeding to the labor commissioner on an epinephrine drip. He had patent grafts to his LAD and OM, but an occluded RCA graft that was stented x 3 followed by placement of an IABP. He arrived in the ICU on an epi drip as well and has a reported EF of 35%. * Cardiac arrest 2/2 acute NSTEMI- Clinically stable * Cardiogenic shock- He responded somewhat to IVF and vasopressin. Now BP good and CXR may demonstrate some pulmonary edema, improved yesterday. He still has moderate O2 needs and rales on exam, BNP markedly elevated. * Ischemic CM: Vitals OK. May have some pulmonary edema. * Respiratory failure with hypoxemia and ventilator dependence. Fair amount of thin purulent secretions. Extubated 02/28 and respirations not labored * DULCE- Resolved * Hyponatremia- likely 2/2 CHF. Now hypernatremic likely from diuresis * Thrombocytopenia- most likely from IABP. No active DIC and HIT less likely. Resolved * Anemia: Hgb stable over the last several days. No signs of active bleeding. * Hyperglycemia: Still high on low-dose SSI * Parkinson's: Resumed meds * Nutrition: On TF. Plan: Extubate. Dose of Lasix. On CHF Rx per Dr. Gallegos. Continue Lasix. Increase free H2O. Increase insulin. Jessica blue, then consider starting PO meds vs. IV. D/W RN, RT, family. Generator placement probably won't be possible for at least 3 months. 03/01/17 12:51 03/01/17 12:53 Subjective: Weak, responds appropriately but inconsistently to questions/commands. Objective: Vital Signs Temp Pulse Resp BP Pulse Ox 36.6 C 80 23 H 129/56 H 90 L 03/01/17 12:00 03/01/17 12:00 03/01/17 12:00 03/01/17 12:00 03/01/17 12:00 Laboratory Results 03/01/17 05:30 03/01/17 04:40 02/28/17 03/01/17 03/02/17 05:59 05:59 05:59 Intake Total 7102 2821 Output Total 3330 1999 775 Balance -878 821 -775 PT 16.7 SEC (12.0-15.0) H 02/25/17 08:35 INR 1.35 (0.83-1.16) H 02/25/17 08:35 Laboratory Tests 03/01/17 04:40 NT-Pro-B Natriuret Pep 37697 H Physical Exam - Physical Exam General Appearance: other (somnolent but arousable) EENT: pharynx normal Neck: normal inspection Respiratory: lungs clear, normal breath sounds Cardiac/Chest: regular rate, rhythm, No edema Abdomen: normal bowel sounds, non-tender Skin: normal color, warm/dry Extremities: normal inspection Neuro/Psych: alert, normal mood/affect, oriented x 3 ICD10 Worksheet Patient Problems: Problems Problem Status Onset S/P deep brain stimulator placement Acute
[2017-03-01] MEDS: ACETYLCYSTEINE 10% 30 ML VIAL IH SCH ×3 (13:00→23:09)
[2017-03-01] MEDS: ALBUTEROL 3 ML DEYVIAL IH SCH ×3 (13:00→23:09)
[2017-03-01 18:10] LABS: POTASSIUM 3.8 mEq/L (3.5-5.2)
[2017-03-01] MEDS: FAMOTIDINE 20 MG TAB TUBE SCH (20:20)
[2017-03-02] MEDS: INSULIN LISPRO 100 UNIT/ML SC SCH ×3 (00:06→11:55)
[2017-03-02] MEDS: PIPERACILLIN/TAZO 3.375 GM/DEX 50 ML IV SCH ×3 (00:07→17:01)
[2017-03-02] MEDS: CARBIDOPA/LEVODOPA 25 MG/100 MG TAB TUBE SCH ×5 (00:07→23:37)
[2017-03-02 05:03] LABS: % IMMATURE GRANULYOCYTES 2.6 % (0.0-1.1); ABSOLUTE IMMATURE GRANULOCYTES 0.23 10^3/uL (0.00-0.10); ADD DIFF? NO; ADD MORPH? NO; ADD SCAN? NO; ATYPICAL LYMPHOCYTE FLAG 40 (0-99); FRAGMENT RBC FLAG 0 (0-99); HEMATOCRIT 26.1 % (40.0-51.0); HEMOGLOBIN 8.4 g/dL (13.7-17.5); LEFT SHIFT FLG 60 (0-99); LIPEMIA HEMOLYSIS FLAG 80 (0-99); MAGNESIUM 2.2 mg/dL (1.6-2.3); MEAN CELL HEMOGLOBIN 29.9 pg (27.9-34.1); MEAN CELL HEMOGLOBIN CONCENTR. 32.2 g/dL (32.4-36.7); MEAN CELL VOLUME 92.9 fL (81.5-99.8); MEAN PLATELET VOLUME 10.4 fL (8.7-11.7); PLATELET CLUMPS FLAG 0 (0-99); PLATELET COUNT 193 10^3/uL (150-400); RED BLOOD CELL COUNT 2.81 10^6/uL (4.40-6.38); RED CELL DISTRIBUTION WIDTH 14.9 % (11.5-15.2)
[2017-03-02] MEDS: ACETYLCYSTEINE 10% 30 ML VIAL IH SCH ×4 (05:16→22:04)
[2017-03-02] MEDS: ALBUTEROL 3 ML DEYVIAL IH SCH ×4 (05:16→22:03)
[2017-03-02 05:24] LABS: GLUCOSE 240 mg/dL (70-100)
[2017-03-02] MEDS: guaiFENesin 600 MG TAB.ER PO SCH (07:22)
[2017-03-02] MEDS: PRASUGREL HCL 10 MG TAB TUBE SCH (08:15)
[2017-03-02] MEDS: FAMOTIDINE 20 MG TAB TUBE SCH ×2 (08:15→21:11)
[2017-03-02] MEDS: ATORVASTATIN CALCIUM 40 MG TAB TUBE SCH (08:15)
[2017-03-02] MEDS: LISINOPRIL 5 MG TAB TUBE SCH (08:15)
[2017-03-02] MEDS: ASPIRIN 325 MG TAB TUBE SCH (08:15)
[2017-03-02] MEDS: FUROSEMIDE 40 MG/4 ML VIAL IVP SCH (08:16)
[2017-03-02] MEDS: AMIODARONE HCL 200 MG TAB TUBE SCH (08:16)
[2017-03-02] MEDS: SPIRONOLACTONE 25 MG TAB PO SCH (08:16)
[2017-03-02] MEDS: ENOXAPARIN 30 MG/0.3 ML SYR SC SCH ×2 (08:16→21:11)
--- NOTE | 2017-03-02 08:32 | NEUSURGPN ---
Assessment/Plan: Assessment: 81 y/o male whose DBS generator case was aborted after he became bradycardiac, lost pulse and code after intubation Plan: -Cardiac status improving. Extubated now -following commands per RN/my exam -pt with continued poor pulmonary status -appreciate critical care/cardiology management -OK from NS standpoint to resume Parkinsons meds -Please notify NS with any change in neuro/motor exam -will d/w IM/critical care to see if ok to sign off - will call Dr Daigle later today -D/w Dr Miller Subjective: Pt resting in bed, asking for water. RN and at bedside. Objective: Awake and alert EOMi PERRL Mouthing words "water" MAEx4 Catheter Insertion Date: 02/22/17 - Physician Discussed Patient with : Paul Neurosurgery Physical Exam - Vitals, I&O, Labs I and O 03/01/17 03/02/17 03/03/17 05:59 05:59 05:59 Intake Total 2821 1610 Output Total 2000 850 Balance 821 760 Weight 75.2 kg Intake: IV Intake (ml) 813 404 Tube Feeding (ml) 1507 786 Tube Flush (ml) 501 420 Output: Urine (ml) 2000 850 Catheter 2000 775 Urinal 75 Other: Number of Voids Incontinence 3 Number of Stools Incontinence 2 Vital Signs Temp Pulse Resp BP Pulse Ox 37.4 C 75 21 H 123/54 H 96 03/02/17 08:00 03/02/17 08:00 03/02/17 08:00 03/02/17 08:00 03/02/17 08:00 Laboratory Results 03/02/17 04:16 03/02/17 04:16 ICD10 Worksheet Patient Problems: Problems Problem Status Onset S/P deep brain stimulator placement Acute
--- NOTE | 2017-03-02 09:18 | SOAPPROG ---
SOAP Progress Note Assessment/Plan: Assessment: 1. Coronary artery disease with previous bypass surgery. 2. Recent cardiac arrest in the setting of anesthesia induction. Initially had a bradycardic arrest in the setting of a thrombotically occluded graft to the right coronary artery. Status post PCI and stenting of the saphenous vein graft to the right coronary artery. 3. Ischemic cardiomyopathy. Ejection fraction of about 35%. 4. Paroxysmal atrial fibrillation. 5. Abnormal ECG indicating trifascicular block. He appears to be remaining stable. By examination he is not markedly volume overloaded. He does, however, have a significantly elevated brain atretic peptide. His recent echocardiogram has indicated normalization of his ejection fraction. Plan: 1. Given his atrial fibrillation and elevated chads Vasc score of at least 4, I think we are at a point now when we should consider initiation of systemic anticoagulation. We could use 1 of the novel agents such as apixaban. He given his recent presentation with thrombosis of his vein graft to the right coronary artery I think that dual anti-platelet therapy should be continued at least for the short term likely the next month. 2. I ordered a basic metabolic panel given the fact that we recently added Aldactone to his medications. 3. His other medications will be continued for the time being. I am a little uncomfortable with initiating beta-ree therapy in light of his conduction system disease. 4. Will follow along with you. Subjective: He has remained hemodynamically stable. Today, he is alert and conversive. He asked me if I could give him some water. He did not voice any specific concerns. He remains in atrial fibrillation with a controlled ventricular response. He had an echocardiogram yesterday which was encouraging in the fact that his ejection fraction has now normalized. Objective: Vital Signs Temp Pulse Resp BP Pulse Ox 37.4 C 75 21 H 123/54 H 96 03/02/17 08:00 03/02/17 08:00 03/02/17 08:00 03/02/17 08:00 03/02/17 08:00 Laboratory Results 03/02/17 04:16 03/02/17 04:16 03/01/17 03/02/17 03/03/17 05:59 05:59 05:59 Intake Total 2821 1610 Output Total 2000 850 Balance 821 760 PT 16.7 SEC (12.0-15.0) H 02/25/17 08:35 INR 1.35 (0.83-1.16) H 02/25/17 08:35 Physical Exam - Physical Exam General Appearance: WD/WN Neck: non-tender, other (Diffuse, bilateral rhonchorous breath sounds) Respiratory: No respiratory distress, No accessory muscle use, No decreased breath sounds, No crackles, No rales Cardiac/Chest: normal peripheral pulses, irregularly irregular, No edema, No gallop, No JVD, No diastolic murmur, No systolic murmur, No extra beats Peripheral Pulses: 2+: carotid (R), carotid (L) Abdomen: non-tender Male Genitalia: deferred Rectal: deferred Extremities: No swelling Neuro/Psych: alert ICD10 Worksheet Patient Problems: Problems Problem Status Onset S/P deep brain stimulator placement Acute
[2017-03-02] MEDS ORDERED: ACETAMINOPHEN 325 MG TAB PO PRN (11:36)
[2017-03-02] MEDS ORDERED: CARBIDOPA/LEVODOPA 25 MG/100 MG TAB PO SCH (12:00)
--- NOTE | 2017-03-02 13:22 | PDINTPN ---
Allopathic Doctor Progress Note Assessment/Plan: Assessment: 81 M with Parkinson's disease admitted 02/22/17 for placement of deep brain stimulator generator, complicated by bradycardic arrest after induction of anesthesia. He likely had a cardiac ischemic event as he had known CAD with a remote 5v CABG and had anticoagulation held for surgery. He had intermittent CPR and one shock for VT over about 45 minutes before proceeding to the medical laboratory assistant on an epinephrine drip. He had patent grafts to his LAD and OM, but an occluded RCA graft that was stented x 3 followed by placement of an IABP. He arrived in the ICU on an epi drip as well and has a reported EF of 35%. * Cardiac arrest 2/2 acute NSTEMI- Clinically stable * Cardiogenic shock- He responded somewhat to IVF and vasopressin. Now BP good and CXR may demonstrate some pulmonary edema, improved yesterday. Has increasing O2 needs and rales on exam, BNP markedly elevated. * Ischemic CM: Vitals OK. May have some pulmonary edema. * Respiratory failure with hypoxemia and ventilator dependence. Fair amount of thin purulent secretions. Extubated 02/28, oxygen needs increased. * DULCE- Resolved * Hyponatremia- likely 2/2 CHF. Now hypernatremic likely from diuresis * Thrombocytopenia- most likely from IABP. No active DIC and HIT less likely. Resolved * Anemia: Hgb stable over the last several days. No signs of active bleeding. * Hyperglycemia: Still high on low-dose SSI * Parkinson's: Resumed meds * Nutrition: On TF. Plan: Extubate. Additional dose of Lasix. On CHF Rx per Dr. Gallegos. Increase free H2O. Increase insulin. Favian. Jessica blue, then consider starting PO meds vs. IV. D/W RN, RT, family. Start Eliquis. Generator placement probably won 't be possible for at least 3 months. 03/02/17 13:42 03/02/17 13:42 Subjective: Feels OK, still quite weak. Objective: Vital Signs Temp Pulse Resp BP Pulse Ox 36.9 C 88 24 H 142/62 H 92 03/02/17 11:50 03/02/17 12:50 03/02/17 12:50 03/02/17 11:50 03/02/17 12:50 Laboratory Results 03/02/17 04:16 0503/02/17 03/03/17 05:59 05:59 05:59 Intake Total 2821 1610 Output Total 1999 850 Balance 821 760 PT 16.7 SEC (12.0-15.0) H 02/25/17 08:35 INR 1.35 (0.83-1.16) H 02/25/17 08:35 Physical Exam - Physical Exam General Appearance: no apparent distress, other (somnolent but arousable) EENT: normal ENT inspection Neck: normal inspection Respiratory: lungs clear, normal breath sounds Cardiac/Chest: regular rate, rhythm, No edema Abdomen: normal bowel sounds, non-tender, soft Skin: normal color, warm/dry Extremities: non-tender Neuro/Psych: alert (when awakened), oriented x 3 ICD10 Worksheet Patient Problems: Problems Problem Status Onset S/P deep brain stimulator placement Acute
[2017-03-02] MEDS: INSULIN REGULAR HUMAN 100 UNIT/ML SC SCH ×3 (13:27→21:22)
[2017-03-02] MEDS: SENNOSIDES 17.6 MG/10 ML UDL PO SCH (13:33)
[2017-03-02] MEDS: guaiFENesin 200 MG/10 ML UDL TUBE SCH ×2 (13:33→21:12)
[2017-03-02 13:35] LABS: ANION GAP 7 mEq/L (8-16); CALCIUM 8.5 mg/dL (8.5-10.4); CARBON DIOXIDE 32 mEq/l (22-31); CHLORIDE 103 mEq/L (97-110); CREATININE 0.7 mg/dL (0.7-1.3); GLOMERULAR FILTRATION RATE > 60; GLUCOSE 240 mg/dL (70-100); POTASSIUM 3.9 mEq/L (3.5-5.2); SODIUM 142 mEq/L (134-144)
[2017-03-02] MEDS ORDERED: FUROSEMIDE 20 MG/2 ML VIAL IVP ONE (14:40)
[2017-03-02 17:52] LABS: POTASSIUM 3.9 mEq/L (3.5-5.2)
[2017-03-02] MEDS: metFORMIN HCL 500 MG TAB PO SCH (18:11)
--- NOTE | 2017-03-02 18:39 | GCON ---
[f rep st] CONSULTATION INTERNAL MEDICINE CONSULTATION DATE OF CONSULTATION: 03/02/2017 REASON FOR CONSULTATION: Medical management. HISTORY OF PRESENT ILLNESS: This is an 82-year-old male, who was admitted initially on 02/22/2017. The reason was for deep brain stimulator generator placement. However, during anesthesia induction he underwent a bradycardic arrest. He went to the factory laborer and there 3 stents were placed in the R CA. He does have a history of CABG in the past, and his WOODRUFF to LAD graft was open but they could n ot see the 2 other grafts, which was assumed to be chronically occluded. He was on the ventilator. He required an aortic balloon pump for some time and then had been on a ventilator until a couple d ays ago. He also has a history of hernias and new diagnosis of cardiomyopathy with EF of 35% as wel l as atrial fibrillation and is now starting anticoagulation. REVIEW OF SYSTEMS: Limited Review of Systems is obtained secondary to patient being not very talkat marci. PAST MEDICAL HISTORY: 1. Coronary artery disease, status post CABG and then 3 stents in the RCA recently. 2. Ischemic cardiomyopathy. 3. Parkinson disease. 4. Restless legs syndrome. 5. Bladder outlet obstruction. 6. Type 2 diabetes. 7. Carotid artery disease. 8. GERD. 9. Hyperlipidemia. 10. History of prostate cancer. 11. Hypertension. 12. Obstructive sleep apnea. 13. Idiopathic hypotension. SOCIAL HISTORY: Nonsmoker. Minimal alcohol. FAMILY HISTORY: Alzheimer's, breast cancer, and stroke. MEDICATIONS: Reviewed. PHYSICAL EXAM: VITAL SIGNS: Afebrile. Blood pressure is 113/69, heart rate is 96, oxygen saturati on 92% on 7 L. GENERAL: Patient is well developed, no apparent distress. He has an NG tube in morgan ce and is on an OxyMask. He is not very talkative, does not really answer questions. HEENT: Nonic teric sclerae. Extraocular movements intact. Slightly dry mucous membranes. NECK: Supple. No th yromegaly. LUNGS: Good effort. Fairly clear. CARDIOVASCULAR: Irregularly irregular. No murmurs, rubs, or gallops. ABDOMEN: Positive bowel sounds. Soft, nontender, nondistended. No hepatosplen omegaly. EXTREMITIES: No clubbing, cyanosis, or edema. SKIN: Without rash. Warm, dry, intact. NEUROLOGIC: Alert and moving all 4 extremities. Slight tremor of his mouth. LABS: White count 8, hemoglobin 8, platelets of 193. Creatinine is 0.7, glucose 200-300. Most rec ent chest x-ray 2 days ago personally reviewed and interpreted, some left lower lobe atelectasis and pulmonary edema which appears to be resolving. EKG or telemetry personally reviewed and interprete d shows atrial fibrillation. ASSESSMENT AND PLAN: This is an 82-year-old male with a history of Parkinson disease. He was admit zaida for placement of deep brain stimulator and underwent bradycardic arrest and required stenting x3 . He was extubated several days ago. 1. Cardiac arrest secondary to [id number] elevation myocardial infarction and thrombotic phenom enon in the right coronary artery. Patient continues on anti-platelet agents. Cardiology is follow ing. 2. Cardiogenic shock. This has resolved, although there is some persistent pulmonary edema. He is getting Lasix daily which we would continue. I probably would recheck a chest x-ray tomorrow to kevon moseley. 3. Hypoxic respiratory failure. This is most likely due to pulmonary edema. He did have some secr etions on bronchoscopy a few days ago. I suspect that is why he was started on Zosyn. However, marin st x-ray is not very consistent with pneumonia and he does not have elevated white blood cell count. Would probably consider discontinuing antibiotics in the next several days if not tomorrow. 4. Dysphagia. Patient does have an NG tube in place and is getting tube feeds. Hopefully, swallow will improve enough for p.o. rather than having to do a PEG tube. 5. Atrial fibrillation. The patient is rate controlled. Anticoagulation has been started by [facility]. 6. Hyperglycemia. The patient has been on a sliding-scale insulin. At home, he was on metformin. I believe you can probably restart that actually. His creatinine is normal now and we are not anti cipating any procedures. Could maybe add a little bit of Lantus temporarily as well. 7. Parkinson's. Patient continues on his medications. 8. Disposition. Patient will probably need longterm facility. Main obstacle at this time w ould be dysphagia and trying to get his swallowing improved. 9. Thank you for this consultation. Will follow along with you, probably can take over care in the next couple days. /[id number]/MODL
[2017-03-02] MEDS ORDERED: POTASSIUM Cl (KCl) 50 ML IV ONE (19:27)
[2017-03-02] MEDS: APIXABAN 2.5 MG TAB PO SCH (21:11)
[2017-03-03] MEDS: ACETAMINOPHEN 650 MG/20.3 ML UDCUP TUBE PRN ×2 (00:15→16:16)
[2017-03-03] MEDS: PIPERACILLIN/TAZO 3.375 GM/DEX 50 ML IV SCH ×3 (01:25→16:16)
[2017-03-03] MEDS: INSULIN REGULAR HUMAN 100 UNIT/ML SC SCH ×6 (01:25→21:29)
[2017-03-03] MEDS: ALBUTEROL 3 ML DEYVIAL IH SCH ×4 (05:19→21:07)
[2017-03-03] MEDS: ACETYLCYSTEINE 10% 30 ML VIAL IH SCH ×4 (05:26→21:07)
[2017-03-03] MEDS: guaiFENesin 200 MG/10 ML UDL TUBE SCH ×3 (05:29→20:50)
[2017-03-03] MEDS: CARBIDOPA/LEVODOPA 25 MG/100 MG TAB TUBE SCH ×4 (05:29→23:29)
[2017-03-03 05:41] LABS: MAGNESIUM 2.3 mg/dL (1.6-2.3); POTASSIUM 4.3 mEq/L (3.5-5.2)
--- NOTE | 2017-03-03 08:09 | SOAPPROG ---
SOAP Progress Note Assessment/Plan: Assessment: 81 y/o male whose DBS generator case was aborted after he became bradycardiac, lost pulse and code after intubation Plan: -Cardiac status improving. Extubated now -following commands -pt with continued poor pulmonary status -appreciate critical care/cardiology management -OK from NS standpoint to resume Parkinsons meds -Please notify NS with any change in neuro/motor exam -D/w Dr Miller 03/03/17 08:08 Subjective: lying in bed, present. Patient's eyes are open and he is speaking weakly. Follows commands, appears comfortable Objective: Vital Signs Temp Pulse Resp BP Pulse Ox 36.9 C 88 28 H 106/62 94 03/03/17 04:00 03/03/17 05:28 03/03/17 05:28 03/03/17 04:00 03/03/17 04:00 Laboratory Results 03/02/17 04:16 03/03/17 05:02 03/02/17 03/03/17 03/04/17 05:59 05:59 05:59 Intake Total 1610 2480 Output Total 850 Balance 760 2480 PT 16.7 SEC (12.0-15.0) H 02/25/17 08:35 INR 1.35 (0.83-1.16) H 02/25/17 08:35 NEURO: PERRLA, EOMI speaking weakly follows commands more briskly on right side ICD10 Worksheet Patient Problems: Problems Problem Status Onset S/P deep brain stimulator placement Acute
[2017-03-03] MEDS: SENNOSIDES 17.6 MG/10 ML UDL PO SCH (09:28)
[2017-03-03] MEDS: FUROSEMIDE 40 MG/4 ML VIAL IVP SCH (09:28)
[2017-03-03] MEDS: FAMOTIDINE 20 MG TAB TUBE SCH ×2 (09:29→20:50)
[2017-03-03] MEDS: APIXABAN 2.5 MG TAB PO SCH ×2 (09:29→20:50)
[2017-03-03] MEDS: PRASUGREL HCL 10 MG TAB TUBE SCH (09:29)
[2017-03-03] MEDS: ASPIRIN 325 MG TAB TUBE SCH (09:29)
[2017-03-03] MEDS: AMIODARONE HCL 200 MG TAB TUBE SCH (09:29)
[2017-03-03] MEDS: metFORMIN HCL 500 MG TAB PO SCH ×2 (09:29→17:49)
[2017-03-03] MEDS: LISINOPRIL 5 MG TAB TUBE SCH (09:29)
[2017-03-03] MEDS: SPIRONOLACTONE 25 MG TAB TUBE SCH (09:30)
[2017-03-03] MEDS: ATORVASTATIN CALCIUM 40 MG TAB TUBE SCH (09:30)
[2017-03-03 09:34] LABS: ADD DIFF? YES; ADD MORPH? NO; ADD SCAN? NO; ATYPICAL LYMPHOCYTE FLAG 20 (0-99); FRAGMENT RBC FLAG 0 (0-99); HEMATOCRIT 27.3 % (40.0-51.0); HEMOGLOBIN 8.8 g/dL (13.7-17.5); LEFT SHIFT FLG 30 (0-99); LIPEMIA HEMOLYSIS FLAG 80 (0-99); MEAN CELL HEMOGLOBIN 29.9 pg (27.9-34.1); MEAN CELL HEMOGLOBIN CONCENTR. 32.2 g/dL (32.4-36.7); MEAN CELL VOLUME 92.9 fL (81.5-99.8); MEAN PLATELET VOLUME 10.2 fL (8.7-11.7); PLATELET CLUMPS FLAG 0 (0-99); PLATELET COUNT 225 10^3/uL (150-400); RED BLOOD CELL COUNT 2.94 10^6/uL (4.40-6.38)
[2017-03-03 09:41] LABS: ALANINE AMINOTRANSFERASE 27 IU/L (21-72); ALBUMIN 2.8 g/dL (3.5-5.0); ALKALINE PHOSPHATASE 229 IU/L (38-126); ANION GAP 9 mEq/L (8-16); ASPARTATE AMINOTRANSFERASE 30 IU/L (17-59); BILIRUBIN,TOTAL 0.8 mg/dL (0.1-1.4); CALCIUM 8.5 mg/dL (8.5-10.4); CARBON DIOXIDE 35 mEq/l (22-31); CHLORIDE 99 mEq/L (97-110); CREATININE 0.7 mg/dL (0.7-1.3); GLOMERULAR FILTRATION RATE > 60; GLUCOSE 247 mg/dL (70-100); POTASSIUM 4.3 mEq/L (3.5-5.2); SODIUM 143 mEq/L (134-144); TOTAL PROTEIN 5.3 g/dL (6.3-8.2)
[2017-03-03 11:06] LABS: ELLIPTOCYTES 1+; PLATELET ESTIMATE ADEQUATE (ADEQ); TOXIC GRANULATION PRESENT
--- NOTE | 2017-03-03 11:43 | PDCARPN ---
Cardiology Progress Note Assessment/Plan: 82-year-old male with history of CAD who was scheduled for implantation of a pulse generator as the final stage of a 3-step process for deep brain stimulation in the setting of Parkinson's disease. Immediately after anesthesia was induced but prior to the initiation of the implant procedure, the patient sustained a cardiac arrest which was initially bradycardic. He received CPR and responded to epinephrine. Did receive a shock during his resuscitation for wide- complex tachycardia. However, the rhythm in question may have been atrial fibrillation with a markedly rapid ventricular response secondary to epinephrine in the setting of an underlying bundle branch block. Taken to cardiac collaborative physician where he was found to have multivessel [place] CAD and thrombotic occlusion of the SVG to RCA which was treated with PCI and placement of 3 drug-eluting stents. Non-ST Segment Elevation Myocardial Infarction- treated with PCI of a thrombotically occluded saphenous vein graft to the RCA. CPK peaked at a relatively modest 617. No evidence of recurrent ischemic episodes. Coronary Artery Disease- remote history of a five-vessel CABG and several subsequent PCI procedures. CT was likely precipitated by interruption of chronic dual antiplatelet therapy for his implant procedure. DAPT now consists of aspirin and Effient. In patient's on systemic anticoagulation, consideration can be given to stopping the aspirin component of DAPT at 4 weeks post-PCI. I would NOT adopt that approach in this case because of the nature of his acute event and because of the lengthy segment of the SVG to RCA that was stented. Would plan for 12 months of ASA and Effient along with whatever anticoagulant is ultimately selected for a-fib CVA prophylaxis. Genetic testing for clopidogrel metabolism indicates that he is an intermediate (reduced) metabolizer. Secondary prevention meds: lisinopril and atorvastatin have been resumed via NGT. Has not passed a swallow evaluation yet. Ischemic Cardiomyopathy- LVEF was initially 30 to 35%; repeat echo on 02/28 demonstrated significant improvement in systolic function with an overall normal LVEF of 60% with inferolateral hypokinesis. Has manifested evidence of CHF over the past week; B[place] 64124 on 03/01; diffuse infiltrates on CXR. Receiving daily IV furosemide. Atrial Fibrillation- AF was initially paroxysmal on the evening of 02/23 with mildly rapid ventricular response; converted to NSR with IV amiodarone; AF recurred and has been persistent the past few days; ventricular rate is marginally controlled. AF is not part of his prior history. Continues on amiodarone 200 mg daily via NGT. Additional beta-ree has been deferred due to conduction system disease. [id number] score of at least 4; will consider starting Eliquis 5 mg BID but would like to confer with office support associate first re any plans for invasive procedures such as a PEG tube. Neurologic Status- patient following commands; speaks a few recognizable words according to family. 03/03/17 12:13 Subjective: Does not voice any complaints. Reviewed/Discussed With: family Objective: Vital Signs (8 Hrs) Temp Pulse Resp BP Pulse Ox 03/03/17 08:00 36.8 C 93 27 H 148/132 H 99 03/03/17 05:28 88 28 H 03/03/17 04:00 36.9 C 90 23 H 106/62 94 Intake/Output (24 Hrs) 03/02/17 03/03/17 03/04/17 05:59 05:59 05:59 Intake Total 1610 2480 Output Total 850 Balance 760 2480 Intake: IV Intake (ml) 404 254 Tube Feeding (ml) 786 1426 Tube Flush (ml) 420 800 Output: Urine (ml) 850 Catheter 775 Urinal 75 Other: Number of Voids Incontinence 3 1 Number of Stools Incontinence 2 1 Result Diagrams: 03/03/17 09:15 03/03/17 09:15 - Physical Exam Constitutional: no apparent distress Eyes: anicteric sclera Ears, Nose, Mouth, Throat: moist mucous membranes Cardiovascular: no murmurs, irregularly irregular Respiratory: other (basilar rales) Gastrointestinal: normoactive bowel sounds, no tenderness, no masses Skin: no rashes, no edema Neurologic: other (not communicating) Psychiatric: following commands ICD10 Worksheet Patient Problems: Problems Problem Status Onset S/P deep brain stimulator placement Acute
[2017-03-03 12:08] LABS: COLOR YELLOW; LEUKOCYTE ESTERASE,URINE NEGATIVE (NEGATIVE); NITRITE,URINE NEGATIVE (NEGATIVE)
[2017-03-03 12:11] LABS: MUCUS TRACE /lpf (NONE-1+)
--- NOTE | 2017-03-03 13:38 | PDINTPN ---
Hogshead Mat Inspector Progress Note Assessment/Plan: Assessment: 81 M with Parkinson's disease admitted 02/22/17 for placement of deep brain stimulator generator, complicated by bradycardic arrest after induction of anesthesia. He likely had a cardiac ischemic event as he had known CAD with a remote 5v CABG and had anticoagulation held for surgery. He had intermittent CPR and one shock for VT over about 45 minutes before proceeding to the blood bank laboratory technologist on an epinephrine drip. He had patent grafts to his LAD and OM, but an occluded RCA graft that was stented x 3 followed by placement of an IABP. He arrived in the ICU on an epi drip as well and has a reported EF of 35%. * Cardiac arrest 2/2 acute NSTEMI- Clinically stable * Cardiogenic shock- He responded somewhat to IVF and vasopressin. Now BP good and CXR may demonstrate some pulmonary edema, improved yesterday. Has increasing O2 needs and rales on exam, BNP markedly elevated. * Ischemic CM: Vitals OK. May have some pulmonary edema. * Respiratory failure with hypoxemia and ventilator dependence. Fair amount of thin purulent secretions. Extubated 02/28, oxygen needs increased. * DULCE- Resolved * Hyponatremia- likely 2/2 CHF. Now hypernatremic likely from diuresis * Thrombocytopenia- most likely from IABP. No active DIC and HIT less likely. Resolved * Anemia: Hgb stable over the last several days. No signs of active bleeding. * Hyperglycemia: Still high on SSI * Parkinson's: Resumed meds * Nutrition: On TF. Plan: Extubate. Additional dose of Lasix today. On CHF Rx per Dr. Gallegos/ Lucas. Increase free H2O. Increase insulin. Favian. Jessica blue, then consider starting PO meds vs. IV. D/W RN, RT, family. Start Eliquis. Generator placement probably won't be possible for at least 3 months. 03/03/17 13:39 Subjective: Somnolent but arousable. Denies pain, dyspnea. Objective: Vital Signs Temp Pulse Resp BP Pulse Ox 36.6 C 108 H 29 H 102/72 91 L 03/03/17 12:00 03/03/17 12:00 03/03/17 12:00 03/03/17 12:00 03/03/17 12:00 Laboratory Results 03/03/17 09:15 03/03/17 09:15 03/02/17 03/03/17 03/04/17 05:59 05:59 05:59 Intake Total 1610 2480 Output Total 850 Balance 760 2480 PT 16.7 SEC (12.0-15.0) H 02/25/17 08:35 INR 1.35 (0.83-1.16) H 02/25/17 08:35 CXR: Persistent interstitial and alveolar infiltrates c/w edema. Images reviewed. Physical Exam - Physical Exam General Appearance: alert, no apparent distress EENT: normal ENT inspection Neck: normal inspection Respiratory: lungs clear, normal breath sounds Cardiac/Chest: normal peripheral pulses, regular rate, rhythm Abdomen: normal bowel sounds, non-tender Skin: normal color, warm/dry Extremities: non-tender Neuro/Psych: motor weakness, No alert (somnolent), No normal mood/affect, No oriented x 3 ICD10 Worksheet Patient Problems: Problems Problem Status Onset S/P deep brain stimulator placement Acute
[2017-03-03] MEDS ORDERED: FUROSEMIDE 40 MG/4 ML VIAL IVP ONE (13:41)
--- NOTE | 2017-03-03 21:31 | HOSPPROG ---
Hospitalist Progress Note Assessment/Plan: Assessment: 82 yo M presents for deep brain stimulator c/b cardiac arrest/ cardiogenic shock, acute systolic CHF exacerbation, NSTEMI, Afib w/ RVR, acute hypoxic respiratory failure Plan: 1. Cardiac arrest. [place] to be 2/2 NSTEMI w/ resultant cardiogenic shock and acute systolic CHF, causing his acute hypoxic respiratory failure - s/p stents to RCA, on ASA 325 2. Systolic CHF. Acute w/ underlying ischemic cardiomyopathy, EF 35% on Echo, pulmonary edema on CXR - cont lasix, spironolactone, ACEi - monitor I/O 3. Afib. Paroxysmal with RVR, cont on amio/eliquis per cards - warrants discussion whether to uptitrate to 5mg bid vs. 2.5mg bid, depending on renal fxn 4. SIRS. Acute, new problem, further w/u indicated. Tachycardia, fever, tachypnea, leukocytosis, unclear whether driven by infxn or recent surgery - get UA, BCx - currently not localizing any specific infxn symptoms - d/w Dr. Daigle on rounds, we agreed to hold Abx adjustment at this time as there is not a targeted infxn, cont zosyn - hold IVF given CHF 5. Acute hypoxic respiratory failure. 2/2 CHF, NOT related to surgery 6. Parkinson's Disease. NSGY remains primary, s/p DBS High complexity patient, high risk worsening morbidity / mortality Hospital medicine will continue to consult on daily care Subjective: patient reports he is not in pain, no dysuria, no diarrhea, cough stable Objective: Vital Signs Temp Pulse Resp BP Pulse Ox 36.4 C 70 30 H 127/103 H 95 03/03/17 20:00 03/03/17 21:08 03/03/17 21:08 03/03/17 20:00 03/03/17 21:08 Laboratory Results 03/03/17 09:15 03/03/17 09:15 03/02/17 03/03/17 03/04/17 05:59 05:59 05:59 Intake Total 1610 2480 6186 Output Total 850 Balance 760 2480 6186 PT 16.7 SEC (12.0-15.0) H 02/25/17 08:35 INR 1.35 (0.83-1.16) H 02/25/17 08:35 - Physical Exam Constitutional: no apparent distress, not in pain, chronically ill appearing, No uncomfortable Cardiovascular: systolic murmur (I/ at sternum), tachycardia, edema (trace bilat LE), No irregularly irregular Respiratory: inspiratory crackles, No reduced air movement, No expiratory wheeze , No bronchial breath sounds Gastrointestinal: normoactive bowel sounds, soft, non-tender abdomen, no palpable masses Genitourinary: no bladder fullness, no bladder tenderness, no renal bruits Neurologic: AAOx3, sensation intact bilaterally, other (slowed movements) Psychiatric: not encephalopathic ICD10 Worksheet Patient Problems: Problems Problem Status Onset S/P deep brain stimulator placement Acute
[2017-03-04] MEDS: PIPERACILLIN/TAZO 3.375 GM/DEX 50 ML IV SCH ×3 (00:45→18:09)
[2017-03-04] MEDS: INSULIN REGULAR HUMAN 100 UNIT/ML SC SCH ×6 (00:45→21:08)
[2017-03-04 03:25] LABS: ADD DIFF? YES; ADD MORPH? NO; ADD SCAN? NO; ATYPICAL LYMPHOCYTE FLAG 20 (0-99); FRAGMENT RBC FLAG 0 (0-99); HEMATOCRIT 25.4 % (40.0-51.0); HEMOGLOBIN 8.2 g/dL (13.7-17.5); LEFT SHIFT FLG 30 (0-99); LIPEMIA HEMOLYSIS FLAG 80 (0-99); MEAN CELL HEMOGLOBIN CONCENTR. 32.3 g/dL (32.4-36.7); MEAN PLATELET VOLUME 10.3 fL (8.7-11.7); PLATELET CLUMPS FLAG 0 (0-99); PLATELET COUNT 253 10^3/uL (150-400); RED BLOOD CELL COUNT 2.73 10^6/uL (4.40-6.38)
[2017-03-04 03:32] LABS: ANION GAP 8 mEq/L (8-16); CALCIUM 8.1 mg/dL (8.5-10.4); CARBON DIOXIDE 36 mEq/l (22-31); CHLORIDE 96 mEq/L (97-110); CREATININE 0.8 mg/dL (0.7-1.3); GLOMERULAR FILTRATION RATE > 60; GLUCOSE 162 mg/dL (70-100); POTASSIUM 3.9 mEq/L (3.5-5.2); SODIUM 140 mEq/L (134-144)
[2017-03-04 03:42] LABS: PLATELET ESTIMATE ADEQUATE (ADEQ)
[2017-03-04 03:43] LABS: TOXIC GRANULATION PRESENT
[2017-03-04] MEDS: ACETYLCYSTEINE 10% 30 ML VIAL IH SCH ×4 (05:03→21:42)
[2017-03-04] MEDS: ALBUTEROL 3 ML DEYVIAL IH SCH ×4 (05:03→21:42)
[2017-03-04] MEDS: guaiFENesin 200 MG/10 ML UDL TUBE SCH ×3 (05:14→21:13)
[2017-03-04] MEDS: CARBIDOPA/LEVODOPA 25 MG/100 MG TAB TUBE SCH ×3 (05:17→18:56)
--- NOTE | 2017-03-04 08:10 | SOAPPROG ---
SOAP Progress Note Assessment/Plan: Assessment: Assessment: 81 y/o male whose DBS generator case was aborted after he became bradycardiac, lost pulse and code after intubation Plan: -Cardiac status improving. Extubated now -following commands -pt with continued poor pulmonary status -appreciate critical care/cardiology management -OK from NS standpoint to resume Parkinsons meds -Please notify NS with any change in neuro/motor exam -Defer all medical/cardiology management to the appropriate service 03/04/17 08:07 Subjective: Doing well, extubated, following all commands Objective: Vital Signs Temp Pulse Resp BP Pulse Ox 36.8 C 73 24 H 106/57 L 94 03/04/17 04:00 03/04/17 05:04 03/04/17 05:04 03/04/17 04:46 03/04/17 05:04 Laboratory Results 03/04/17 03:15 03/04/17 03:15 03/03/17 03/04/17 03/05/17 05:59 05:59 05:59 Intake Total 2480 7574.6 Balance 2480 7574.6 PT 16.7 SEC (12.0-15.0) H 02/25/17 08:35 INR 1.35 (0.83-1.16) H 02/25/17 08:35 Alert, nonverbal but ansers questions with thumbs up or down, MAEWx 4 5/5, PERRL , EOMI, no facial asymmetry, NG tube in place - Pending Discharge Pending Discharge Within 24 Hours: No Pending Discharge Within 48 Hours: No ICD10 Worksheet Patient Problems: Problems Problem Status Onset S/P deep brain stimulator placement Acute
[2017-03-04] MEDS: LISINOPRIL 5 MG TAB TUBE SCH (09:33)
[2017-03-04] MEDS: ATORVASTATIN CALCIUM 40 MG TAB TUBE SCH (09:33)
[2017-03-04] MEDS: ASPIRIN 325 MG TAB TUBE SCH (09:33)
[2017-03-04] MEDS: SPIRONOLACTONE 25 MG TAB TUBE SCH (09:33)
[2017-03-04] MEDS: APIXABAN 2.5 MG TAB PO SCH ×2 (09:34→21:08)
[2017-03-04] MEDS: FAMOTIDINE 20 MG TAB TUBE SCH ×2 (09:34→21:08)
[2017-03-04] MEDS: AMIODARONE HCL 200 MG TAB TUBE SCH (09:34)
[2017-03-04] MEDS: PRASUGREL HCL 10 MG TAB TUBE SCH (09:34)
[2017-03-04] MEDS: metFORMIN HCL 500 MG TAB PO SCH ×2 (09:34→18:19)
[2017-03-04] MEDS: FUROSEMIDE 40 MG/4 ML VIAL IVP SCH (09:35)
[2017-03-04] MEDS: SENNOSIDES 17.6 MG/10 ML UDL PO SCH (09:35)
--- NOTE | 2017-03-04 09:37 | SOAPPROG ---
SOAP Progress Note Assessment/Plan: Assessment: 1. Coronary artery disease with previous bypass surgery. 2. Recent cardiac arrest in the setting of anesthesia induction. Initially had a bradycardic arrest in the setting of a thrombotically occluded graft to the right coronary artery. Status post PCI and stenting of the saphenous vein graft to the right coronary artery. 3. Ischemic cardiomyopathy. Ejection fraction of about 35%. Follow-up echocardiogram has indicated normalization of his ejection fraction. 4. Paroxysmal atrial fibrillation. 5. Abnormal ECG indicating trifascicular block. He appears to be making slow and steady progress. He was started on apixaban yesterday. I believe that he is likely under dosed on this medication. I think the more appropriate dose should be 5 mg twice daily. Additionally, his intake and outputs appear to be vastly different than usual due to tube flushes. I wonder if this is an error in charting. I will check with the nursing staff regarding these issues. Otherwise, he appears to be doing well overall and, at this point, is on appropriate medications. 03/04/17 09:39 Subjective: Today, he appears to be a little more alert and interactive. He was appropriate with me when I ask him questions. He denied experiencing any chest discomfort or chest pressure. He has been hemodynamically stable. Objective: Vital Signs Temp Pulse Resp BP Pulse Ox 36.8 C 73 24 H 106/57 L 94 03/04/17 04:00 03/04/17 05:04 03/04/17 05:04 03/04/17 04:46 03/04/17 05:04 Laboratory Results 03/04/17 03:15 03/04/17 03:15 03/03/17 03/04/17 03/05/17 05:59 05:59 05:59 Intake Total 2480 7574.6 Balance 2480 7574.6 PT 16.7 SEC (12.0-15.0) H 02/25/17 08:35 INR 1.35 (0.83-1.16) H 02/25/17 08:35 Physical Exam - Physical Exam General Appearance: WD/WN, no apparent distress Neck: non-tender Respiratory: lungs clear (Anterior exam) Cardiac/Chest: regular rate, rhythm, No bradycardia, No tachycardia, No diastolic murmur, No systolic murmur Peripheral Pulses: 2+: carotid (R), carotid (L) Abdomen: non-tender Male Genitalia: deferred Rectal: deferred ICD10 Worksheet Patient Problems: Problems Problem Status Onset S/P deep brain stimulator placement Acute
--- NOTE | 2017-03-04 10:54 | CPEKG ---
Heart Rate: 66 RR Interval: 909 P-R Interval: 172 QRSD Interval: 154 QT Interval: 496 QTC Interval: 520 P Juncos: 10 QRS Juncos: -51 T Wave Juncos: -21 EKG Severity - ABNORMAL ECG - EKG Impression: SINUS RHYTHM EKG Impression: RIGHT BUNDLE BRANCH BLOCK AND LAHB EKG Impression: COMPARED WITH 24 FEB 2017, AF RESOLVED Electronically Signed By: Cheryl Villasenor 04-Mar-2017 13:51:43
--- NOTE | 2017-03-04 12:01 | PDINTPN ---
Molding Process Technician Progress Note Assessment/Plan: Assessment: 81 M with Parkinson's disease admitted 02/22/17 for placement of deep brain stimulator generator, complicated by bradycardic arrest after induction of anesthesia. He likely had a cardiac ischemic event as he had known CAD with a remote 5v CABG and had anticoagulation held for surgery. He had intermittent CPR and one shock for VT over about 45 minutes before proceeding to the slab off mill tender on an epinephrine drip. He had patent grafts to his LAD and OM, but an occluded RCA graft that was stented x 3 followed by placement of an IABP. He arrived in the ICU on an epi drip as well and has a reported EF of 35%. * Cardiac arrest 2/2 acute NSTEMI- Clinically stable * Cardiogenic shock- He responded somewhat to IVF and vasopressin. Now BP good and CXR may demonstrate some pulmonary edema, improved yesterday. Has decreasing O2 needs and rales on exam. * Ischemic CM: Vitals OK. May have some pulmonary edema. * Respiratory failure with hypoxemia and ventilator dependence. Fair amount of thin purulent secretions. Extubated 02/28, oxygen needs increased. * DULCE- Resolved. BUN up a bit with diuresis * Hyponatremia- likely 2/2 CHF, then hypernatremic likely from diuresis. Now normal. * Thrombocytopenia- most likely from IABP. No active DIC and HIT less likely. Resolved * Anemia: Hgb stable over the last several days. No signs of active bleeding. * Hyperglycemia: Coming down on increased SSI * Parkinson's: Resumed meds * Nutrition: On TF. Plan: Additional dose of Lasix again today. Decrease free H2O. On CHF Rx per Dr. Gallegos/Lucas. Continue SSI. [place]. Change NGT to feeding tube. D/W RN, RT, family. Continue Eliquis. Generator placement probably won't be possible for at least 3 months. 03/04/17 12:06 Subjective: More alert, no complaints. Denies dyspnea, but has some cough. Objective: Vital Signs Temp Pulse Resp BP Pulse Ox 37.2 C 72 30 H 107/80 100 03/04/17 08:00 03/04/17 11:26 03/04/17 11:26 03/04/17 08:00 03/04/17 11:26 Laboratory Results 03/04/17 03:15 03/04/17 03:15 03/03/17 03/04/17 03/05/17 05:59 05:59 05:59 Intake Total 2480 7574.6 Balance 2480 7574.6 PT 16.7 SEC (12.0-15.0) H 02/25/17 08:35 INR 1.35 (0.83-1.16) H 02/25/17 08:35 Physical Exam - Physical Exam General Appearance: alert, no apparent distress EENT: normal ENT inspection Neck: normal inspection Respiratory: crackles Cardiac/Chest: regular rate, rhythm, No edema Abdomen: normal bowel sounds, non-tender Skin: normal color, warm/dry Extremities: normal inspection Neuro/Psych: alert, normal mood/affect, No oriented x 3 ICD10 Worksheet Patient Problems: Problems Problem Status Onset S/P deep brain stimulator placement Acute
[2017-03-04] MEDS ORDERED: FUROSEMIDE 40 MG/4 ML VIAL IVP ONE (12:10)
--- NOTE | 2017-03-04 15:39 | HOSPPROG ---
Hospitalist Progress Note Assessment/Plan: Assessment: 82 yo M presents for deep brain stimulator c/b cardiac arrest/ cardiogenic shock, acute systolic CHF exacerbation, NSTEMI, Afib w/ RVR, acute hypoxic respiratory failure * cardiac arrest due to non ST elevation [place] * status post 3 stents to RCA * ischemic cardiomyopathy * continuing to get some Lasix * atrial fibrillation * on Eliquis * acute hypoxic respiratory failure * dysphagia * per speech pathology it may be some time before he is able to take p.o. * will need to consider PEG tube placement at some point * Parkinson's * will not be able to get DBS stimulator for some time * type 2 diabetes * pretty good sugar control * DVT prophylaxis * Eliquis Subjective: no new complaints. Minimal verbalization Objective: Vital Signs Temp Pulse Resp BP Pulse Ox 37.2 C 72 30 H 107/80 100 03/04/17 08:00 03/04/17 11:26 03/04/17 11:26 03/04/17 08:00 03/04/17 11:26 Laboratory Results 03/04/17 03:15 03/04/17 03:15 03/03/17 03/04/17 03/05/17 05:59 05:59 05:59 Intake Total 2480 7574.6 Balance 2480 7574.6 PT 16.7 SEC (12.0-15.0) H 02/25/17 08:35 INR 1.35 (0.83-1.16) H 02/25/17 08:35 discussed with pulmonology tele personally viewed interpreted atrial fibrillation - Physical Exam Constitutional: no apparent distress, appears nourished, not in pain Eyes: anicteric sclera, EOMI Ears, Nose, Mouth, Throat: moist mucous membranes, hearing normal, ears appear normal Cardiovascular: irregularly irregular Respiratory: no respiratory distress, no rales or rhonchi, clear to auscultation Gastrointestinal: normoactive bowel sounds, soft, non-tender abdomen, no palpable masses Skin: warm Psychiatric: other ( not very verbal) ICD10 Worksheet Patient Problems: Problems Problem Status Onset S/P deep brain stimulator placement Acute
[2017-03-05] MEDS: INSULIN REGULAR HUMAN 100 UNIT/ML SC SCH ×6 (01:47→22:17)
[2017-03-05] MEDS: CARBIDOPA/LEVODOPA 25 MG/100 MG TAB TUBE SCH ×4 (01:47→17:10)
[2017-03-05] MEDS: PIPERACILLIN/TAZO 3.375 GM/DEX 50 ML IV SCH ×3 (02:02→17:10)
[2017-03-05] MEDS: ALBUTEROL 3 ML DEYVIAL IH SCH ×4 (06:10→21:49)
[2017-03-05] MEDS: ACETYLCYSTEINE 10% 30 ML VIAL IH SCH ×4 (06:10→21:49)
[2017-03-05 06:36] LABS: % IMMATURE GRANULYOCYTES 2.4 % (0.0-1.1); ABSOLUTE IMMATURE GRANULOCYTES 0.27 10^3/uL (0.00-0.10); ABSOLUTE NRBC COUNT 0.02 10^3/uL (0-0.01); ADD DIFF? NO; ADD MORPH? NO; ADD SCAN? NO; ATYPICAL LYMPHOCYTE FLAG 20 (0-99); FRAGMENT RBC FLAG 0 (0-99); HEMATOCRIT 25.9 % (40.0-51.0); HEMOGLOBIN 8.4 g/dL (13.7-17.5); LEFT SHIFT FLG 20 (0-99); LIPEMIA HEMOLYSIS FLAG 80 (0-99); MEAN CELL HEMOGLOBIN 29.9 pg (27.9-34.1); MEAN CELL HEMOGLOBIN CONCENTR. 32.4 g/dL (32.4-36.7); MEAN CELL VOLUME 92.2 fL (81.5-99.8); MEAN PLATELET VOLUME 10.3 fL (8.7-11.7); NRBC-AUTO% 0.2 % (0.0-0.2); PLATELET CLUMPS FLAG 0 (0-99); PLATELET COUNT 284 10^3/uL (150-400); RED BLOOD CELL COUNT 2.81 10^6/uL (4.40-6.38)
[2017-03-05 06:46] LABS: ANION GAP 7 mEq/L (8-16); CALCIUM 8.2 mg/dL (8.5-10.4); CARBON DIOXIDE 33 mEq/l (22-31); CHLORIDE 98 mEq/L (97-110); CREATININE 0.8 mg/dL (0.7-1.3); GLOMERULAR FILTRATION RATE > 60; GLUCOSE 143 mg/dL (70-100); POTASSIUM 4.2 mEq/L (3.5-5.2); SODIUM 138 mEq/L (134-144)
[2017-03-05] MEDS: guaiFENesin 200 MG/10 ML UDL TUBE SCH ×3 (07:34→22:14)
[2017-03-05] MEDS ORDERED: APIXABAN 2.5 MG TAB PO SCH (09:27)
--- NOTE | 2017-03-05 09:31 | SOAPPROG ---
SINDY Progress Note Assessment/Plan: Assessment: 1. Coronary artery disease with previous bypass surgery. 2. Recent cardiac arrest in the setting of anesthesia induction. Initially had a bradycardic arrest in the setting of a thrombotically occluded graft to the right coronary artery. Status post PCI and stenting of the saphenous vein graft to the right coronary artery. 3. Ischemic cardiomyopathy. Ejection fraction of about 35%. Follow-up echocardiogram has indicated normalization of his ejection fraction. 4. Paroxysmal atrial fibrillation. 5. Abnormal ECG indicating trifascicular block. He continues to make reasonable progress. Today I increased his apixaban up to 5 mg twice daily, the appropriate dose in this particular setting. His other medications appear appropriate. I am avoiding beta-ree therapy in light of his conduction system disease. Apparently, he pulled out his NG tube which will be replaced today. We will follow along. Subjective: He appears stable. He is a little more alert and interactive today than he was yesterday although he is not oriented. I am unsure of his baseline cognitive level. He is currently in sinus rhythm and has not had any significant bradycardia. Objective: Vital Signs Temp Pulse Resp BP Pulse Ox 36.9 C 77 20 141/57 H 90 L 03/05/17 07:53 03/05/17 07:53 03/05/17 07:53 03/05/17 07:53 03/05/17 07:53 Laboratory Results 03/05/17 06:10 03/05/17 06:10 03/04/17 03/05/17 03/06/17 05:59 05:59 05:59 Intake Total 7574.6 1640 Balance 7574.6 1640 PT 16.7 SEC (12.0-15.0) H 02/25/17 08:35 INR 1.35 (0.83-1.16) H 02/25/17 08:35 - Pending Discharge Pending Discharge Within 24 Hours: No Pending Discharge Within 48 Hours: No Physical Exam - Physical Exam General Appearance: WD/WN Neck: non-tender Respiratory: lungs clear ( Anterior) Cardiac/Chest: regular rate, rhythm, No edema, No gallop, No JVD Peripheral Pulses: 2+: carotid (R), carotid (L) Abdomen: soft Male Genitalia: deferred Rectal: deferred ICD10 Worksheet Patient Problems: Problems Problem Status Onset S/P deep brain stimulator placement Acute
[2017-03-05] MEDS ORDERED: LIDOCAINE 2% JELLY 5 ML TUBE ONE (09:49)
[2017-03-05] MEDS: ASPIRIN 325 MG TAB TUBE SCH (11:16)
[2017-03-05] MEDS: PRASUGREL HCL 10 MG TAB TUBE SCH (11:16)
[2017-03-05] MEDS: ATORVASTATIN CALCIUM 40 MG TAB TUBE SCH (11:17)
[2017-03-05] MEDS: LISINOPRIL 5 MG TAB TUBE SCH (11:17)
[2017-03-05] MEDS: metFORMIN HCL 500 MG TAB PO SCH ×2 (11:17→17:10)
[2017-03-05] MEDS: AMIODARONE HCL 200 MG TAB TUBE SCH (11:17)
[2017-03-05] MEDS: FAMOTIDINE 20 MG TAB TUBE SCH ×2 (11:17→22:14)
[2017-03-05] MEDS: SENNOSIDES 17.6 MG/10 ML UDL PO SCH (11:26)
[2017-03-05] MEDS: FUROSEMIDE 40 MG/4 ML VIAL IVP SCH (11:33)
[2017-03-05] MEDS: SPIRONOLACTONE 25 MG TAB TUBE SCH (11:33)
[2017-03-05] MEDS: APIXABAN 2.5 MG TAB PO SCH (12:01)
--- NOTE | 2017-03-05 13:22 | HOSPPROG ---
Hospitalist Progress Note Assessment/Plan: Assessment: 82 yo M presents for deep brain stimulator c/b cardiac arrest/ cardiogenic shock, acute systolic CHF exacerbation, NSTEMI, Afib w/ RVR, acute hypoxic respiratory failure * cardiac arrest due to non ST elevation [place] * status post 3 stents to RCA * ischemic cardiomyopathy * continuing to get some Lasix * atrial fibrillation * on Eliquis * acute hypoxic respiratory failure * continue diuresis * possible pneumonia * on Zosyn * dysphagia * per speech pathology it may be some time before he is able to take p.o. * will need to consider PEG tube placement at some point * Parkinson's * will not be able to get DBS stimulator for some time * type 2 diabetes * pretty good sugar control * DVT prophylaxis * Eliquis Subjective: continues to be confused Objective: Vital Signs Temp Pulse Resp BP Pulse Ox 36.6 C 69 16 140/65 H 92 03/05/17 12:00 03/05/17 12:00 03/05/17 12:00 03/05/17 12:00 03/05/17 12:00 Laboratory Results 03/05/17 06:10 03/05/17 06:10 03/04/17 03/05/17 03/06/17 05:59 05:59 05:59 Intake Total 7574.6 1640 Balance 7574.6 1640 PT 16.7 SEC (12.0-15.0) H 02/25/17 08:35 INR 1.35 (0.83-1.16) H 02/25/17 08:35 tele personally viewed interpreted, normal sinus rhythm - Physical Exam Constitutional: no apparent distress, appears nourished, not in pain Eyes: anicteric sclera, EOMI Cardiovascular: regular rate and rhythym, no murmur, rub, or gallop Respiratory: no respiratory distress, rhonchi Gastrointestinal: normoactive bowel sounds, soft, non-tender abdomen, no palpable masses Skin: warm Neurologic: No AAOx3 Psychiatric: interacting appropriately, not anxious, not encephalopathic, thought process linear, flat affect ICD10 Worksheet Patient Problems: Problems Problem Status Onset S/P deep brain stimulator placement Acute
[2017-03-05] MEDS ORDERED: FUROSEMIDE 40 MG/4 ML VIAL IVP ONE (13:23)
[2017-03-05] MEDS: APIXABAN 5 MG TAB PO SCH (22:13)
[2017-03-06] MEDS: CARBIDOPA/LEVODOPA 25 MG/100 MG TAB TUBE SCH ×5 (00:21→23:52)
[2017-03-06] MEDS: PIPERACILLIN/TAZO 3.375 GM/DEX 50 ML IV SCH ×2 (00:21→08:43)
[2017-03-06] MEDS: INSULIN REGULAR HUMAN 100 UNIT/ML SC SCH ×6 (00:22→21:48)
[2017-03-06 05:22] LABS: % IMMATURE GRANULYOCYTES 1.5 % (0.0-1.1); ABSOLUTE IMMATURE GRANULOCYTES 0.13 10^3/uL (0.00-0.10); ADD DIFF? NO; ADD MORPH? NO; ADD SCAN? NO; ATYPICAL LYMPHOCYTE FLAG 30 (0-99); FRAGMENT RBC FLAG 0 (0-99); HEMATOCRIT 24.9 % (40.0-51.0); HEMOGLOBIN 8.1 g/dL (13.7-17.5); LEFT SHIFT FLG 30 (0-99); LIPEMIA HEMOLYSIS FLAG 80 (0-99); MEAN CELL HEMOGLOBIN 29.9 pg (27.9-34.1); MEAN CELL HEMOGLOBIN CONCENTR. 32.5 g/dL (32.4-36.7); MEAN CELL VOLUME 91.9 fL (81.5-99.8); MEAN PLATELET VOLUME 9.7 fL (8.7-11.7); PLATELET CLUMPS FLAG 10 (0-99); PLATELET COUNT 282 10^3/uL (150-400); RED BLOOD CELL COUNT 2.71 10^6/uL (4.40-6.38)
[2017-03-06 05:30] LABS: ANION GAP 6 mEq/L (8-16); CARBON DIOXIDE 30 mEq/l (22-31); CHLORIDE 102 mEq/L (97-110); CREATININE 0.9 mg/dL (0.7-1.3); GLOMERULAR FILTRATION RATE > 60; GLUCOSE 149 mg/dL (70-100); POTASSIUM 3.6 mEq/L (3.5-5.2); SODIUM 138 mEq/L (134-144)
[2017-03-06] MEDS: guaiFENesin 200 MG/10 ML UDL TUBE SCH ×3 (05:56→21:47)
[2017-03-06] MEDS: ALBUTEROL 3 ML DEYVIAL IH SCH ×4 (06:05→23:26)
[2017-03-06] MEDS: ACETYLCYSTEINE 10% 30 ML VIAL IH SCH ×4 (06:05→23:26)
[2017-03-06] MEDS: metFORMIN HCL 500 MG TAB PO SCH ×2 (09:53→17:45)
[2017-03-06] MEDS: APIXABAN 5 MG TAB PO SCH ×2 (11:12→21:47)
[2017-03-06] MEDS: PRASUGREL HCL 10 MG TAB TUBE SCH (11:12)
[2017-03-06] MEDS: FUROSEMIDE 40 MG/4 ML VIAL IVP SCH (11:13)
--- NOTE | 2017-03-06 11:24 | HOSPPROG ---
Hospitalist Progress Note Assessment/Plan: Assessment: 82 yo M presents for deep brain stimulator c/b cardiac arrest/ cardiogenic shock, acute systolic CHF exacerbation, NSTEMI, Afib w/ RVR, acute hypoxic respiratory failure * cardiac arrest due to non ST elevation [place] * status post 3 stents to RCA * ischemic cardiomyopathy * continuing to get some Lasix * atrial fibrillation * on Eliquis * acute hypoxic respiratory failure * continue diuresis little longer. Seems better * possible pneumonia * on Zosyn * dysphagia * per speech pathology it may be some time before he is able to take p.o. * will need to consider PEG tube placement at some point * Will need to replace NG tube * Parkinson's * will not be able to get DBS stimulator for some time * type 2 diabetes * pretty good sugar control * DVT prophylaxis * Eliquis Subjective: Pulled out feeding tube again Objective: Vital Signs Temp Pulse Resp BP Pulse Ox 37.0 C 62 15 142/57 H 90 L 03/06/17 07:30 03/06/17 07:30 03/06/17 07:30 03/06/17 07:30 03/06/17 07:30 Laboratory Results 03/06/17 05:10 03/06/17 05:10 03/05/17 03/06/17 03/07/17 05:59 05:59 05:59 Intake Total 1640 863 Output Total 550 Balance 1640 313 PT 16.7 SEC (12.0-15.0) H 02/25/17 08:35 INR 1.35 (0.83-1.16) H 02/25/17 08:35 Tele personally reviewed interpreted normal sinus rhythm Discussed with Cardiology - Physical Exam Constitutional: no apparent distress, appears nourished, not in pain Eyes: anicteric sclera, EOMI Ears, Nose, Mouth, Throat: moist mucous membranes, hearing normal Cardiovascular: regular rate and rhythym Respiratory: no respiratory distress, no rales or rhonchi, other (Less rales) Gastrointestinal: normoactive bowel sounds, soft, non-tender abdomen, no palpable masses Skin: warm Psychiatric: flat affect ICD10 Worksheet Patient Problems: Problems Problem Status Onset S/P deep brain stimulator placement Acute
[2017-03-06] MEDS ORDERED: BENZOCAINE UNIT DOSE SPRAY HURRICAINE MM ONE ×2 (11:36→12:10)
[2017-03-06] MEDS ORDERED: LIDOCAINE 2% JELLY 5 ML TUBE ONE ×2 (11:36→12:10)
[2017-03-06] MEDS: SENNOSIDES 17.6 MG/10 ML UDL PO SCH (11:44)
[2017-03-06] MEDS: AMIODARONE HCL 200 MG TAB TUBE SCH (14:17)
[2017-03-06] MEDS: ASPIRIN 325 MG TAB TUBE SCH (14:17)
[2017-03-06] MEDS: ATORVASTATIN CALCIUM 40 MG TAB TUBE SCH (14:17)
[2017-03-06] MEDS: LISINOPRIL 5 MG TAB TUBE SCH (14:17)
[2017-03-06] MEDS: SPIRONOLACTONE 25 MG TAB TUBE SCH (14:17)
[2017-03-06] MEDS: FAMOTIDINE 20 MG TAB TUBE SCH ×2 (14:17→21:47)
[2017-03-07] MEDS: INSULIN REGULAR HUMAN 100 UNIT/ML SC SCH ×6 (01:02→22:24)
[2017-03-07] MEDS: guaiFENesin 200 MG/10 ML UDL TUBE SCH ×3 (05:18→22:42)
[2017-03-07] MEDS: CARBIDOPA/LEVODOPA 25 MG/100 MG TAB TUBE SCH ×4 (05:19→23:16)
[2017-03-07] MEDS: ALBUTEROL 3 ML DEYVIAL IH SCH ×4 (05:56→21:02)
[2017-03-07] MEDS: ACETYLCYSTEINE 10% 30 ML VIAL IH SCH ×4 (05:56→21:02)
[2017-03-07] MEDS: FUROSEMIDE 40 MG/4 ML VIAL IVP SCH (08:57)
[2017-03-07] MEDS: FAMOTIDINE 20 MG TAB TUBE SCH ×2 (08:58→20:25)
[2017-03-07] MEDS: SPIRONOLACTONE 25 MG TAB TUBE SCH (08:58)
[2017-03-07] MEDS: LISINOPRIL 5 MG TAB TUBE SCH (08:58)
[2017-03-07] MEDS: PRASUGREL HCL 10 MG TAB TUBE SCH (08:58)
[2017-03-07] MEDS: ATORVASTATIN CALCIUM 40 MG TAB TUBE SCH (08:59)
[2017-03-07] MEDS: metFORMIN HCL 500 MG TAB PO SCH ×2 (08:59→17:54)
[2017-03-07] MEDS: APIXABAN 5 MG TAB PO SCH ×2 (08:59→20:25)
[2017-03-07] MEDS: AMIODARONE HCL 200 MG TAB TUBE SCH (08:59)
[2017-03-07] MEDS: ASPIRIN 325 MG TAB TUBE SCH (08:59)
[2017-03-07] MEDS: SENNOSIDES 17.6 MG/10 ML UDL PO SCH (08:59)
--- NOTE | 2017-03-07 12:08 | PDCARPN ---
Cardiology Progress Note Chief Complaint: cardiac arrest/AF Assessment/Plan: Assessment: 82M PMH PD, CAD, CABG, previous PCIs, DM, [place], hlp, htn, was brought in for deep brain stimulator implantation. Developed cardiac arrest with anesthesia induction. #. recent cardiac arrest in setting of anesthesia induction Coronary artery disease with previous bypass surgery Initially had a bradycardic arrest in the setting of a thrombotically occluded graft to the right coronary artery. Status post PCI and stenting of the saphenous vein graft to the right coronary artery. #. Ischemic cardiomyopathy. Ejection fraction of about 35%. Follow-up echocardiogram has indicated normalization of his ejection fraction. will reinitiate BB at lower dose #. Paroxysmal atrial fibrillation. Currently in AF and now on Eliquis #. Abnormal ECG indicating trifascicular block. Will monitor on tele for bradyarrhythmias as we are starting BB Plan: Reinitiate BB. 03/07/17 12:05 03/07/17 12:11 Subjective: Catie present. Teddy is getting breathing treatment currently. Objective: Vital Signs (8 Hrs) Temp Pulse Resp BP Pulse Ox 03/07/17 11:55 70 20 93 03/07/17 07:51 98.3 F 71 26 H 138/76 H 95 03/07/17 05:57 68 24 H 95 Intake/Output (24 Hrs) 03/06/17 03/07/17 03/08/17 05:59 05:59 05:59 Intake Total 863 1139 Output Total 550 400 Balance 313 739 Intake: IV Intake (ml) 175 IV Infused (ml) 50 Piperacillin/Tazo 3.375 50 gm/Dex 50 ml @ 100 mls/hr IV Q8H KATHERIN Rx#: [id number] Tube Feeding (ml) 538 939 Tube Flush (ml) 100 200 Output: Urine (ml) 550 400 Urinal 550 400 Other: Intake Quantity No npo Sufficient Number of Voids Incontinence 2 2 Urinal 2 1 Number of Stools Incontinence 1 1 Urinal 2 1 Result Diagrams: 03/06/17 05:10 03/06/17 05:10 Telemetry: AF - Physical Exam Constitutional: no apparent distress Eyes: anicteric sclera Cardiovascular: systolic murmur Skin: no rashes, no edema ICD10 Worksheet Patient Problems: Problems Problem Status Onset S/P deep brain stimulator placement Acute
--- NOTE | 2017-03-07 13:34 | HOSPPROG ---
Hospitalist Progress Note Assessment/Plan: Assessment: 82 yo M presents for deep brain stimulator c/b cardiac arrest/ cardiogenic shock, acute systolic CHF exacerbation, NSTEMI, Afib w/ RVR, acute hypoxic respiratory failure * cardiac arrest due to non ST elevation [place] * status post 3 stents to RCA * ischemic cardiomyopathy * Echo normalized * May switch to oral Lasix tomorrow * atrial fibrillation * on Eliquis * acute hypoxic respiratory failure * continue diuresis little longer. Seems better * possible pneumonia * Finished course of Zosyn * dysphagia * Getting video swallow * Hopefully he can start p.o. soon rather than getting PEG tube * Parkinson's * will not be able to get DBS stimulator for some time * type 2 diabetes * pretty good sugar control * DVT prophylaxis * Eliquis Subjective: No new complaints. Objective: Vital Signs Temp Pulse Resp BP Pulse Ox 36.8 C 97 25 H 109/43 L 97 03/07/17 07:51 03/07/17 12:00 03/07/17 12:00 03/07/17 12:00 03/07/17 12:00 Laboratory Results 03/06/17 05:10 03/06/17 05:10 03/06/17 03/07/17 03/08/17 05:59 05:59 05:59 Intake Total 863 1139 Output Total 550 400 Balance 313 739 PT 16.7 SEC (12.0-15.0) H 02/25/17 08:35 INR 1.35 (0.83-1.16) H 02/25/17 08:35 Tele personally viewed interpreted atrial fibrillation Discussed with Cardiology - Physical Exam Constitutional: no apparent distress, appears nourished, not in pain Eyes: anicteric sclera, EOMI Ears, Nose, Mouth, Throat: moist mucous membranes, hearing normal Cardiovascular: irregularly irregular Respiratory: no respiratory distress, no rales or rhonchi, clear to auscultation Gastrointestinal: normoactive bowel sounds, soft, non-tender abdomen, no palpable masses Skin: warm Neurologic: AAOx3 Psychiatric: interacting appropriately, flat affect ICD10 Worksheet Patient Problems: Problems Problem Status Onset S/P deep brain stimulator placement Acute
[2017-03-08] MEDS: INSULIN REGULAR HUMAN 100 UNIT/ML SC SCH ×6 (01:15→20:39)
[2017-03-08] MEDS: ALBUTEROL 3 ML DEYVIAL IH SCH ×4 (05:08→22:34)
[2017-03-08] MEDS: ACETYLCYSTEINE 10% 30 ML VIAL IH SCH ×4 (05:08→22:34)
[2017-03-08] MEDS: CARBIDOPA/LEVODOPA 25 MG/100 MG TAB TUBE SCH ×4 (05:28→23:23)
[2017-03-08] MEDS: guaiFENesin 200 MG/10 ML UDL TUBE SCH (06:06)
[2017-03-08] MEDS: metFORMIN HCL 500 MG TAB PO SCH ×2 (09:35→17:57)
[2017-03-08] MEDS: ASPIRIN 325 MG TAB TUBE SCH (09:41)
[2017-03-08] MEDS: ATORVASTATIN CALCIUM 40 MG TAB TUBE SCH (09:41)
[2017-03-08] MEDS: AMIODARONE HCL 200 MG TAB TUBE SCH (09:41)
[2017-03-08] MEDS: APIXABAN 5 MG TAB PO SCH (09:41)
[2017-03-08] MEDS: LISINOPRIL 5 MG TAB TUBE SCH (09:41)
[2017-03-08] MEDS: FAMOTIDINE 20 MG TAB TUBE SCH ×2 (09:41→20:39)
[2017-03-08] MEDS: METOPROLOL SUCCINATE XR 25 MG TAB PO SCH (09:41)
[2017-03-08] MEDS: PRASUGREL HCL 10 MG TAB TUBE SCH (09:41)
[2017-03-08] MEDS: SPIRONOLACTONE 25 MG TAB TUBE SCH (09:42)
[2017-03-08] MEDS: FUROSEMIDE 40 MG/4 ML VIAL IVP SCH (09:42)
[2017-03-08] MEDS: SENNOSIDES 17.6 MG/10 ML UDL PO SCH (09:43)
[2017-03-08 12:38] LABS: % IMMATURE GRANULYOCYTES 0.8 % (0.0-1.1); ABSOLUTE IMMATURE GRANULOCYTES 0.09 10^3/uL (0.00-0.10); ADD DIFF? NO; ADD MORPH? NO; ADD SCAN? NO; ATYPICAL LYMPHOCYTE FLAG 10 (0-99); FRAGMENT RBC FLAG 0 (0-99); HEMATOCRIT 27.4 % (40.0-51.0); HEMOGLOBIN 8.7 g/dL (13.7-17.5); LEFT SHIFT FLG 0 (0-99); LIPEMIA HEMOLYSIS FLAG 80 (0-99); MEAN CELL HEMOGLOBIN 29.8 pg (27.9-34.1); MEAN CELL HEMOGLOBIN CONCENTR. 31.8 g/dL (32.4-36.7); MEAN CELL VOLUME 93.8 fL (81.5-99.8); MEAN PLATELET VOLUME 9.5 fL (8.7-11.7); PLATELET CLUMPS FLAG 0 (0-99); PLATELET COUNT 409 10^3/uL (150-400); RED BLOOD CELL COUNT 2.92 10^6/uL (4.40-6.38); RED CELL DISTRIBUTION WIDTH 15.1 % (11.5-15.2)
[2017-03-08 12:53] LABS: ANION GAP 8 mEq/L (8-16); CALCIUM 8.6 mg/dL (8.5-10.4); CARBON DIOXIDE 27 mEq/l (22-31); CHLORIDE 104 mEq/L (97-110); CREATININE 0.7 mg/dL (0.7-1.3); GLOMERULAR FILTRATION RATE > 60; GLUCOSE 200 mg/dL (70-100); POTASSIUM 4.3 mEq/L (3.5-5.2); SODIUM 139 mEq/L (134-144)
--- NOTE | 2017-03-08 15:44 | PDCARPN ---
Cardiology Progress Note Chief Complaint: Patient reports no pain. Assessment/Plan: Assessment: 1st time I have seen patient. 82-year-old male with known history of CAD with previous bypass surgery, cardiac arrest in the setting anesthesia induction, initially had bradycardic arrest. Thrombosis occlusion SVG to RCA. Emergent PCI with FLORENCE implantation to SVG-RCA. Post PCI EF was noted to be 35% which has normalized, echocardiogram done on 03/01/2017 showed LV EF 61%, mild concentric LVH, mild inferior wall hypokinesis LA is mildly dilated, mild aortic sclerosis and mitral annular calcification, mild MR, mild TR, RVSP estimated at 48 mm of mercury. Patient noted to have paroxysmal atrial fibrillation, and abnormal EKG with trifascicular block. Started on beta- ree yesterday, EKG shows sinus rhythm with no malignant arrhythmias or pauses overnight. Plan: 1. CAD you with recent cardiac arrest in setting of anesthesia induction: known history of CAD with previous CABG, this hospitalization bradycardic arrest with thrombotic occlusion SVG to RCA. PCI with 3 FLORENCE implantation. Continue on aspirin and Effient. 2. Paroxysmal atrial fibrillation: Currently in sinus, on amiodarone, have started low-dose metoprolol succinate, no significant AV block. Patient started on full anticoagulation of Eliquis. No bleeding issues. 3. Ischemic cardiomyopathy: Recent echocardiogram shows significant improvement with medication management post arrest in PCI. Continue on current dose of metoprolol, lisinopril, and Aldactone. 4. Hyperlipidemia: Patient resume home dosage of atorvastatin for secondary risk prevention. 03/08/17 15:44 Subjective: Patient somewhat confused to person place and time, denies of any chest pressure or pain. No palpitations. Reviewed/Discussed With: other (Dr Reyes) Objective: Vital Signs (8 Hrs) Temp Pulse Resp BP Pulse Ox 03/08/17 15:05 36.5 C 62 30 H 99/37 L 93 03/08/17 11:11 68 20 96 03/08/17 10:58 37.3 C 63 23 H 129/48 H 96 Intake/Output (24 Hrs) 03/07/17 03/08/17 03/09/17 05:59 05:59 05:59 Intake Total 1139 815 950 Output Total 400 Balance 739 815 950 Intake: IV Intake (ml) 20 Tube Feeding (ml) 939 715 780 Tube Flush (ml) 200 100 150 Output: Urine (ml) 400 Urinal 400 Other: Intake Quantity npo npo Sufficient Number of Voids Incontinence 2 2 Urinal 1 1 Number of Stools Incontinence 1 1 Urinal 1 Result Diagrams: 03/09/17 04:15 03/09/17 04:15 - Physical Exam Constitutional: no apparent distress, other ( Elderly looking male.) Ears, Nose, Mouth, Throat: moist mucous membranes Cardiovascular: regular rate and rhythm, no rubs, systolic murmur ( 1 to 2/6 along left sternal border.), pulses symmetric bilat, No jugular vein distention , No carotid bruit Peripheral Pulses: 1+: dorsalis-pedis (R), dorsalis-pedis (L), 2+: carotid (R), carotid (L) Respiratory: other ( Lungs diminished in bases, no rhonchi, rales, or wheezing noted.) Gastrointestinal: normoactive bowel sounds Skin: warm, No no edema ( +1 peripheral edema bilateral lower extremities) Neurologic: No AAOx3 ( patient alert to person and place, but not to time and situation.) Psychiatric: cooperative, interactive, following commands ICD10 Worksheet Patient Problems: Problems Problem Status Onset S/P deep brain stimulator placement Acute
--- NOTE | 2017-03-08 15:48 | HOSPPROG ---
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 * will stop Lasix * I wonder if he still needs the Aldactone since his EF has normalized * atrial fibrillation * on Eliquis * in sinus rhythm now * acute hypoxic respiratory failure * improving * status post diuresis and antibiotics * possible pneumonia * Finished course of Zosyn * dysphagia * failed video swallow * will need PEG tube * since he is on Eliquis may have to wait 48 hours * Parkinson's * will not be able to get DBS stimulator for some time * type 2 diabetes * pretty good sugar control * DVT prophylaxis * Eliquis * disposition * will go to [facility] inpatient re[facility] after PEG tube placed and working Subjective: no new complaints. Failed video swallow yesterday Objective: Vital Signs Temp Pulse Resp BP Pulse Ox 36.5 C 62 30 H 99/37 L 93 03/08/17 15:05 03/08/17 15:05 03/08/17 15:05 03/08/17 15:05 03/08/17 15:05 Microbiology 03/03/17 00:53 Blood Culture - Final Blood 03/03/17 00:25 Blood Culture - Final Blood Laboratory Results 03/08/17 12:20 03/08/17 12:20 03/07/17 03/08/17 03/09/17 05:59 05:59 05:59 Intake Total 1139 815 950 Output Total 400 Balance 739 815 950 PT 16.7 SEC (12.0-15.0) H 02/25/17 08:35 INR 1.35 (0.83-1.16) H 02/25/17 08:35 tele personally viewed interpreted - nsr discussed with Gastroenterology - Physical Exam Constitutional: no apparent distress, appears nourished, not in pain Eyes: anicteric sclera, EOMI Ears, Nose, Mouth, Throat: moist mucous membranes, hearing normal, ears appear normal Cardiovascular: irregularly irregular Respiratory: no respiratory distress, no rales or rhonchi, clear to auscultation Gastrointestinal: normoactive bowel sounds, soft, non-tender abdomen, no palpable masses Skin: warm Neurologic: AAOx3 Psychiatric: interacting appropriately, flat affect ICD10 Worksheet Patient Problems: Problems Problem Status Onset S/P deep brain stimulator placement Acute
--- NOTE | 2017-03-08 17:57 | SOAPPROG ---
SOAP Progress Note Assessment/Plan: Assessment:Plan: see full dictated consult failed swallow study, high risk aspiration, needs retirement feeding solution PEG not w/o risk will hold Eliquis but continue the anti-platelet meds I discussed with who will speak with daughter and I will speak with them tomorrow I will also speak with cardiology about risk and need to stop anti-coagulation but not anti-plt meds PEG Monday at earliest given Eliquis this am Eh Thomas M.D. [phone] 03/08/17 17:54 Objective: Vital Signs Temp Pulse Resp BP Pulse Ox 36.5 C 62 30 H 99/37 L 93 03/08/17 15:05 03/08/17 15:05 03/08/17 15:05 03/08/17 15:05 03/08/17 15:05 Microbiology 03/03/17 00:53 Blood Culture - Final Blood 03/03/17 00:25 Blood Culture - Final Blood Laboratory Results 03/08/17 12:20 03/08/17 12:20 03/07/17 03/08/17 03/09/17 05:59 05:59 05:59 Intake Total 8171 640 6366 Output Total 400 300 Balance 100 346 9513 PT 16.7 SEC (12.0-15.0) H 02/25/17 08:35 INR 1.35 (0.83-1.16) H 02/25/17 08:35 ICD10 Worksheet Patient Problems: Problems Problem Status Onset S/P deep brain stimulator placement Acute
--- NOTE | 2017-03-08 19:22 | GCON ---
[f rep st] CONSULTATION DATE OF CONSULTATION: 03/08/2017 REFERRING PHYSICIAN: Dex Watson MD INDICATION FOR CONSULTATION: Need for long-term feeding tube placement in a patient with aspiration. HISTORY OF PRESENT ILLNESS: The majority of this is obtained from the patient' s chart and his . The patient is a bit confused at the present time. The patient is a pleasant 82-year-old man who has a past medical history significant for coronary artery disease, ischemic cardiomyopathy, Parkinson disease, type 2 diabetes, hypertension, prostate cancer, obstructive sleep apnea , who was being admitted for a deep brain stimulator generator placement who underwent a bradycardic arrest when he had anesthesia induction. 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 They believe this occurred from a brief interruption of his antiplatelet medications. He also has atrial fibrillation, and he is on anticoagulation for that. He has had an NG tube in over the last few weeks. He has removed it a couple times and has to replaced by Radiology. He had a swallowing study recently that he failed, with significant aspiration. Because of his aspiration risk, I have been called to help and evaluate for possible PEG placement. PAST MEDICAL/SURGICAL HISTORY: Coronary artery disease, status post CABG previously, and 3 stents in his RCA on February 22, I believe it was, ischemic cardiomyopathy, Parkinson disease, type 2 diabetes, carotid artery disease, GERD , hyperlipidemia, history of prostate cancer, hypertension, obstructive sleep apnea, idiopathic hypertension, atrial fibrillation. SOCIAL HISTORY: According to his , he does not smoke. He drinks alcohol very infrequently. FAMILY HISTORY: Positive for Alzheimer's, breast cancer, and stroke. MEDICATIONS: In the hospital currently, include: Tylenol p.r.n., Mucomyst 2 mL inhaled q.6h hours, albuterol 3 mL inhaler q.i.d., Cathflo Activase 2 mg, amiodarone 200 mg daily, Eliquis 5 mg b.i.d., which has been on hold since this morning, aspirin 325 mg daily, Lipitor 40 mg daily, atropine p.r.n., Sinemet 2 tabs q.6, Pepcid 20 mg b.i.d., sliding scale insulin, Zestril 10 mg daily, metformin 500 mg b.i.d., Toprol 12.5 mg daily, morphine p.r.n., Zofran p.r.n., Effient 10 mg daily, Requip 2 mg 2 q.6, Aldactone 25 mg daily. ALLERGIES: No known drug allergies. REVIEW OF SYSTEMS: Patient is confused and is not reliable for review of systems. He does deny chest pain, shortness of breath. I do not think the review of systems is obtainable from the patient at present. PHYSICAL EXAM: GENERAL: Elderly male, sitting in his bed. No acute distress. He has an NG tube in place and oxygen on. VITAL SIGNS: Temperature 36.5, blood pressure 99/37, pulse 57, respirations 20, 93% on 5 L oxygen mask. EYES: Anicteric, EOMI. MOUTH: No lesions. NECK: No thyroid mass, no lymphadenopathy. BACK: No CVA tenderness. LUNGS: Coarse breath sounds. No rhonchi or rales appreciated. CARDIAC: S1, S2 irregular. I do not appreciate murmurs, rubs or gallops. ABDOMEN: Bowel sounds are normal in pitch and frequency. Soft, nontender, no hepatosplenomegaly. EXTREMITIES: No cyanosis or clubbing. NEUROLOGIC: Cranial nerves intact. He is moving all 4 extremities. He is slightly confused. SKIN: No stigmata of advanced liver disease. LABORATORY DATA: From today, March 08, WBC 11.85, hemoglobin 8.7, hematocrit 27.4, platelet count 409. Sodium 139, potassium 4.3, chloride 104, bicarb 27, BUN 33, creatinine 0.7, glucose 200. From March 03, AST 30, ALT 27, alkaline phosphatase 229. On February 25, his alkaline phosphatase was normal at 83. Speech swallow performed March 07, 2017: Aspiration with thin and nectar thickness. ASSESSMENT: An 82-year-old man who presented for deep brain stimulator had a bradycardic arrest, cardiogenic shock, acute non ST elevation myocardial infarction, who has atrial fibrillation, on Eliquis, and has significant aspiration on fluoroscopy study. 1. Aspiration/dysphagia. 2. Parkinson disease. 3. Cardiac arrest, status post 3 stents to the right coronary artery. 4. Ischemic cardiomyopathy. 5. Atrial fibrillation. 6. On long-term antiplatelet medications. 7. On long-term anticoagulation, currently Eliquis, for his atrial fibrillation. 8. History of possible pneumonia, finished a course of Zosyn. 9. Diabetes. RECOMMENDATIONS: 1. Consider PEG placement. 2. I had a discussion with the today. She will speak with her daughter, and I will speak with them tomorrow and try to answer their questions about PEG placement. 3. I will contact Cardiology to make sure they do not have any significant contraindications to to me performing the procedure on Monday afternoon. 4. Hold Eliquis for now. 5. Continue antiplatelet medications. He has no increased risk of bleeding from the PEG tube. I do not want to have any occlusion of his recently placed stents. 6. Other issues as per hospitalist and specialists. 7. Further recommendations to follow results of above and clinical course. I had a detailed discussion with the and the patient today. I do not think the patient understands, he is somewhat confused. The is going to speak with the daughter mark and then I will speak with the daughter tomorrow. I have stressed to them that this is not an emergent procedure. He is getting adequate nutrition, although NG tube nutrition for many weeks is not recommended. I also stressed that the PEG placement will not interfere with him regaining any swallowing activities he is able to. If he is able to regain swallowing adequately enough to not need the percutaneous gastroscopic endoscopy , we can remove it no sooner than 6 weeks after placement. Thank you for allowing me participate in the patient's healthcare. Do not hesitate to call me with any questions. Copy requested to: Primary Care Physician /[id number]/MODL MTDD
[2017-03-09] MEDS: guaiFENesin 200 MG/10 ML UDL TUBE SCH (00:03)
[2017-03-09] MEDS: INSULIN REGULAR HUMAN 100 UNIT/ML SC SCH ×7 (00:32→23:53)
[2017-03-09 04:45] LABS: ANION GAP 7 mEq/L (8-16); CALCIUM 8.7 mg/dL (8.5-10.4); CARBON DIOXIDE 27 mEq/l (22-31); CHLORIDE 104 mEq/L (97-110); CREATININE 0.7 mg/dL (0.7-1.3); GLOMERULAR FILTRATION RATE > 60; GLUCOSE 184 mg/dL (70-100); POTASSIUM 4.7 mEq/L (3.5-5.2); SODIUM 138 mEq/L (134-144)
[2017-03-09 04:53] LABS: % IMMATURE GRANULYOCYTES 0.7 % (0.0-1.1); ABSOLUTE IMMATURE GRANULOCYTES 0.08 10^3/uL (0.00-0.10); ADD DIFF? NO; ADD MORPH? NO; ADD SCAN? NO; ATYPICAL LYMPHOCYTE FLAG 0 (0-99); FRAGMENT RBC FLAG 0 (0-99); HEMATOCRIT 25.3 % (40.0-51.0); HEMOGLOBIN 7.9 g/dL (13.7-17.5); LEFT SHIFT FLG 0 (0-99); LIPEMIA HEMOLYSIS FLAG 80 (0-99); MEAN CELL HEMOGLOBIN 29.7 pg (27.9-34.1); MEAN CELL HEMOGLOBIN CONCENTR. 31.2 g/dL (32.4-36.7); MEAN CELL VOLUME 95.1 fL (81.5-99.8); MEAN PLATELET VOLUME 9.6 fL (8.7-11.7); PLATELET CLUMPS FLAG 0 (0-99); PLATELET COUNT 385 10^3/uL (150-400); RED BLOOD CELL COUNT 2.66 10^6/uL (4.40-6.38); RED CELL DISTRIBUTION WIDTH 15.3 % (11.5-15.2)
[2017-03-09] MEDS: CARBIDOPA/LEVODOPA 25 MG/100 MG TAB TUBE SCH ×4 (05:04→23:44)
[2017-03-09] MEDS: ALBUTEROL 3 ML DEYVIAL IH SCH ×4 (05:56→20:51)
[2017-03-09] MEDS: ACETYLCYSTEINE 10% 30 ML VIAL IH SCH ×3 (05:56→17:04)
[2017-03-09] MEDS: metFORMIN HCL 500 MG TAB PO SCH ×2 (08:27→18:04)
[2017-03-09] MEDS: FAMOTIDINE 20 MG TAB TUBE SCH ×2 (08:27→20:49)
[2017-03-09] MEDS: SPIRONOLACTONE 25 MG TAB TUBE SCH (08:27)
[2017-03-09] MEDS: ASPIRIN 325 MG TAB TUBE SCH (08:27)
[2017-03-09] MEDS: AMIODARONE HCL 200 MG TAB TUBE SCH (08:28)
[2017-03-09] MEDS: SENNOSIDES 17.6 MG/10 ML UDL PO SCH (08:28)
[2017-03-09] MEDS: LISINOPRIL 5 MG TAB TUBE SCH (08:28)
[2017-03-09] MEDS: PRASUGREL HCL 10 MG TAB TUBE SCH (08:28)
[2017-03-09] MEDS: ATORVASTATIN CALCIUM 40 MG TAB TUBE SCH (08:28)
[2017-03-09] MEDS: METOPROLOL SUCCINATE XR 25 MG TAB PO SCH (08:57)
--- NOTE | 2017-03-09 11:34 | SOAPPROG ---
SOAP Progress Note Assessment/Plan: Assessment:Plan: see full dictated consult failed swallow study, high risk aspiration, needs fdc feeding solution PEG not w/o risk will hold Eliquis but continue the anti-platelet meds I discussed with who will speak with daughter and I will speak with them tomorrow I will also speak with cardiology about risk and need to stop anti-coagulation but not anti-plt meds PEG Monday at earliest given Eliquis this am Eh Thomas M.D. [phone] 03/08/17 17:54 03/09/17 11:31 1) need for feeding tube - I have left two vm's with daughter, spoke to again and answered her questions 2) anticaog - on hold for possible PEG 3) antiplts meds - will not stop given recent vascular occlusion and IA I am on phone with 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, aspiration, dysphagia pt confused again tolerating NGT feeds OK Objective: Vital Signs Temp Pulse Resp BP Pulse Ox 36.6 C 67 20 143/53 H 96 03/09/17 08:00 03/09/17 08:00 03/09/17 08:00 03/09/17 08:00 03/09/17 08:00 Microbiology 03/03/17 00:53 Blood Culture - Final Blood 03/03/17 00:25 Blood Culture - Final Blood Laboratory Results 03/09/17 04:15 03/09/17 04:15 03/08/17 03/09/17 03/10/17 05:59 05:59 05:59 Intake Total 815 2521 Output Total 500 Balance 815 2020 PT 16.7 SEC (12.0-15.0) H 02/25/17 08:35 INR 1.35 (0.83-1.16) H 02/25/17 08:35 Alert but not oriented CTA anteriorly S1S2 +BS, soft NT ICD10 Worksheet Patient Problems: Problems Problem Status Onset S/P deep brain stimulator placement Acute
--- NOTE | 2017-03-09 14:01 | PDCARPN ---
Cardiology Progress Note Chief Complaint: Patient reports ongoing tiredness. Assessment/Plan: Assessment: 82-year-old male with known history of CAD with previous bypass surgery, cardiac arrest in the setting anesthesia induction, initially had bradycardic arrest. Thrombosis occlusion SVG to RCA. Emergent PCI with FLORENCE implantation to SVG-RCA. Post PCI EF was noted to be 35% which has normalized, echocardiogram done on 03/01/2017 showed LV EF 61%, mild concentric LVH, mild inferior wall hypokinesis LA is mildly dilated, mild aortic sclerosis and mitral annular calcification, mild MR, mild TR, RVSP estimated at 48 mm of mmHg. During hospitalization patient has been noted to have runs of paroxysmal atrial fibrillation. Today, no arrhythmias noted. Per RN, patient's right eye has developed sub conjunctiva hemorrhage, he has had no bleeding issues. Patient potentially is planning to undergo PEG tube placement. Eliquis to his been placed on hold since last evening. No atrial fibrillation noted. Patient denies of any chest pressure or pain. No malignant arrhythmias noted. Plan: 1. CAD you with recent cardiac arrest in setting of anesthesia induction: known history of CAD with previous CABG, this hospitalization bradycardic arrest with thrombotic occlusion SVG to RCA. PCI with 3 FLORENCE implantation. Continue on aspirin and Effient. 2. Paroxysmal atrial fibrillation: Currently in sinus, on amiodarone, Low-dose metoprolol, no significant AV block. Eliquis has been placed on hold since last evening, in preparations for possible PEG tube placement. 3. Ischemic cardiomyopathy: Recent echocardiogram shows significant improvement with medication management post arrest in PCI. Continue on current dose of metoprolol, lisinopril, and Aldactone. Will not be aggressive with metoprolol titration, due to patient noted to have trifascicular block. 4. Hyperlipidemia: continue on atorvastatin. 5. Subconjunctival hemorrhage: Right eye. patient reports no visual disturbance. Placed a call for Dr. Jesus of Ophthalmology to evaluate. Eliquis on hold, continue aspirin and Effient. Consideration when restarting back on Eliquis, to decreasing aspirin dosage to 81 mg q.day. 6. Anemia: Mild drop in H&H today, continue monitoring closely. 03/09/17 13:57 Subjective: Patient reporting no chest pain, shortness of breath, lightheadedness, or palpitations. Reviewed/Discussed With: family (Patient ), multidisciplinary team (consult to Dr Jesus), other (Dr Kinney) Objective: Vital Signs (8 Hrs) Temp Pulse Resp BP Pulse Ox 03/09/17 12:00 36.3 C 67 18 133/48 H 100 03/09/17 08:00 36.6 C 67 20 143/53 H 96 Intake/Output (24 Hrs) 03/08/17 03/09/17 03/10/17 05:59 05:59 05:59 Intake Total 815 2521 Output Total 500 Balance 815 2020 Intake: Oral (ml) 0 IV Intake (ml) 20 Tube Feeding (ml) 715 1976 Tube Flush (ml) 100 525 Output: Urine (ml) 500 Urinal 500 Other: Intake Quantity npo No: pt npo Sufficient Number of Voids Incontinence 2 1 Urinal 1 1 Number of Stools Incontinence 1 Result Diagrams: 03/09/17 04:15 03/09/17 04:15 - Physical Exam Constitutional: no apparent distress, other ( elderly male) Eyes: other ( right eye conjunctiva is red and bloody) Ears, Nose, Mouth, Throat: moist mucous membranes Cardiovascular: regular rate and rhythm, systolic murmur (1-2/6 LSB), pulses symmetric bilat, No jugular vein distention, No carotid bruit Respiratory: no crackles, expiratory wheeze, other ( diminished in bases, no rales) Gastrointestinal: normoactive bowel sounds Skin: warm, no edema Neurologic: other (AAOX2) Psychiatric: cooperative, interactive, following commands ICD10 Worksheet Patient Problems: Problems Problem Status Onset S/P deep brain stimulator placement Acute
--- NOTE | 2017-03-09 14:06 | HOSPPROG ---
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 * will stop Lasix * I wonder if he still needs the Aldactone since his EF has normalized * atrial fibrillation * on Eliquis * in sinus rhythm now * acute hypoxic respiratory failure * improving * status post diuresis and antibiotics * possible pneumonia * Finished course of Zosyn * dysphagia * failed video swallow * will need PEG tube * since he is on Eliquis may have to wait 48 hours * Parkinson's * will not be able to get DBS stimulator for some time * type 2 diabetes * pretty good sugar control * DVT prophylaxis * Eliquis * disposition * [facility] after PEG tube placed and working Subjective: scleral hemorrhage, seen y opthalmology. no event stele (interp by me). case d/[facility] Objective: Vital Signs Temp Pulse Resp BP Pulse Ox 36.3 C 67 18 133/48 H 100 03/09/17 12:00 03/09/17 12:00 03/09/17 12:00 03/09/17 12:00 03/09/17 12:00 Microbiology 03/03/17 00:53 Blood Culture - Final Blood 03/03/17 00:25 Blood Culture - Final Blood Laboratory Results 03/09/17 04:15 03/09/17 04:15 03/08/17 03/09/17 03/10/17 05:59 05:59 05:59 Intake Total 815 2521 Output Total 500 Balance 815 2021 PT 16.7 SEC (12.0-15.0) H 02/25/17 08:35 INR 1.35 (0.83-1.16) H 02/25/17 08:35 - Physical Exam Constitutional: no apparent distress Eyes: PERRL, anicteric sclera, other (Large R scleral hemorrhage) Ears, Nose, Mouth, Throat: moist mucous membranes, hearing normal Cardiovascular: regular rate and rhythym, no murmur, rub, or gallop Respiratory: no respiratory distress, no rales or rhonchi Gastrointestinal: normoactive bowel sounds, soft, non-tender abdomen Genitourinary: no bladder fullness, No velasco in urethra Skin: warm, normal color Musculoskeletal: full muscle strength, no muscle tenderness Neurologic: AAOx3 ICD10 Worksheet Patient Problems: Problems Problem Status Onset S/P deep brain stimulator placement Acute
[2017-03-09] MEDS: TEARS/DEXTRAN 70/HYPROMELLOSE 15 ML OPHT.BTL EACHEYE PRN (15:08)
[2017-03-10] MEDS: INSULIN REGULAR HUMAN 100 UNIT/ML SC SCH ×5 (04:46→21:13)
[2017-03-10] MEDS: CARBIDOPA/LEVODOPA 25 MG/100 MG TAB TUBE SCH ×4 (04:52→23:19)
[2017-03-10] MEDS: ALBUTEROL 3 ML DEYVIAL IH SCH ×3 (06:20→16:59)
[2017-03-10] MEDS: metFORMIN HCL 500 MG TAB PO SCH ×2 (08:48→17:21)
[2017-03-10] MEDS: ASPIRIN 325 MG TAB TUBE SCH ×2 (08:56→08:57)
[2017-03-10] MEDS: SENNOSIDES 17.6 MG/10 ML UDL PO SCH (08:56)
[2017-03-10] MEDS: LISINOPRIL 5 MG TAB TUBE SCH (08:56)
[2017-03-10] MEDS: SPIRONOLACTONE 25 MG TAB TUBE SCH (08:57)
[2017-03-10] MEDS: AMIODARONE HCL 200 MG TAB TUBE SCH (08:57)
[2017-03-10] MEDS: PRASUGREL HCL 10 MG TAB TUBE SCH (08:57)
[2017-03-10] MEDS: FAMOTIDINE 20 MG TAB TUBE SCH ×2 (08:57→23:19)
[2017-03-10] MEDS: ATORVASTATIN CALCIUM 40 MG TAB TUBE SCH (08:57)
[2017-03-10] MEDS: METOPROLOL SUCCINATE XR 25 MG TAB PO SCH (08:57)
[2017-03-10] MEDS ORDERED: ASPIRIN 325 MG TAB TUBE SCH (12:12)
--- NOTE | 2017-03-10 12:31 | PDCARPN ---
Cardiology Progress Note Chief Complaint: cardiac arrest Assessment/Plan: Assessment: 82M PMH PD, CAD, CABG, previous PCIs, DM, SHELTON, hlp, htn, was brought in for deep brain stimulator implantation. Developed cardiac arrest with anesthesia induction. #. recent cardiac arrest in setting of anesthesia induction Coronary artery disease with previous bypass surgery Initially had a bradycardic arrest in the setting of a thrombotically occluded graft to the right coronary artery. Status post PCI and stenting of the saphenous vein graft to the right coronary artery. on DAPT wiht Effient and ASA/ will decrease ASA to 81 mg daily he may stop ASA in 2 weeks and be on Eliquis and Effient #. Ischemic cardiomyopathy. Ejection fraction of about 35%. Follow-up echocardiogram has indicated normalization of his ejection fraction. will reinitiate BB at lower dose stop Spironolactone with normalization of EF #. Paroxysmal atrial fibrillation. Currently in SR On Amiodarone for rhythm management Eliquis on hold for PEG tube placement/resume it when cleared by GI #. Abnormal ECG indicating trifascicular block. rate has been stable on telemetry #. htn: BP mildly elevated / will consider increase in Lisinopril #. scleral hemorrhage: per opthalmology Plan: 03/10/17 12:28 Subjective: "Two girls took me on a walk." Reviewed/Discussed With: hospitalist (Dr. Lantigua) Objective: Vital Signs (8 Hrs) Temp Pulse Resp BP Pulse Ox 03/10/17 10:42 80 25 H 98 03/10/17 08:12 98.2 F 67 25 H 128/60 H 92 03/10/17 06:20 74 18 94 Intake/Output (24 Hrs) 03/09/17 03/10/17 03/11/17 05:59 05:59 05:59 Intake Total 2521 1710 Output Total 500 300 Balance 2020 1410 Intake: Oral (ml) 0 0 IV Intake (ml) 20 Tube Feeding (ml) 1975 1360 Tube Flush (ml) 525 350 Output: Urine (ml) 500 300 Urinal 500 300 Other: Intake Quantity No: pt npo Sufficient Number of Voids Incontinence 1 1 1 Urinal 1 Number of Stools Incontinence 1 Result Diagrams: 03/09/17 04:15 03/09/17 04:15 Telemetry: personally reviewed: SR - Physical Exam Constitutional: no apparent distress, other (mildly agitated) Eyes: other (conjuctival hemorrhage) Cardiovascular: regular rate and rhythm Respiratory: inspiratory crackles (bases) Gastrointestinal: no tenderness, other (+BS) Skin: no edema ICD10 Worksheet Patient Problems: Problems Problem Status Onset S/P deep brain stimulator placement Acute
[2017-03-10] MEDS ORDERED: ceFAZolin 1 GM in NS 100 ML IV ONE (12:49)
[2017-03-10] MEDS ORDERED: PROPOFOL 200 MG/20 ML VIAL ONE (13:50)
[2017-03-10] MEDS ORDERED: PHENYLEPHRINE HCL 100 MCG/ML SYR ONE ×2 (14:06)
--- NOTE | 2017-03-10 15:36 | POSTOPPROG ---
Post Op Note Date of Operation: 03/10/17 Surgeon: Eh Thomas Anesthesiologist: Wilder chau Anesthesia: GET(General Endotracheal) Pre-op Diagnosis: need for feedding tube Post-op Diagnosis: esophagitis from NGT, mild gastritis, small gastric polyp, nml duodenum s/p Indication: feeding diff misc, aspiration Procedure: EGD with PEG Findings: esophagitis, small gastric polyp Inf/Abcess present in the surg proc area at time of surgery?: No EBL: Minimal (few ml) Complications: none immediate
--- NOTE | 2017-03-10 15:58 | HOSPPROG ---
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 * will stop Lasix * I wonder if he still needs the Aldactone since his EF has normalized * atrial fibrillation * on Eliquis * in sinus rhythm now * acute hypoxic respiratory failure * improving * status post diuresis and antibiotics * possible pneumonia * Finished course of Zosyn * dysphagia * failed video swallow * will need PEG tube * since he is on Eliquis may have to wait 48 hours * Parkinson's * will not be able to get DBS stimulator for some time * type 2 diabetes * pretty good sugar control * DVT prophylaxis * Eliquis * disposition * [facility] after PEG tube placed and working Subjective: no events tele (interp by me). case d/w leonardo Objective: Vital Signs Temp Pulse Resp BP Pulse Ox 36.7 C 61 23 H 127/64 H 96 03/10/17 14:37 03/10/17 14:37 03/10/17 14:55 03/10/17 15:01 03/10/17 15:10 Laboratory Results 03/09/17 04:15 03/09/17 04:15 03/09/17 03/10/17 03/11/17 05:59 05:59 05:59 Intake Total 2521 1710 300 Output Total 500 300 5 Balance 2020 1410 295 PT 16.7 SEC (12.0-15.0) H 02/25/17 08:35 INR 1.35 (0.83-1.16) H 02/25/17 08:35 - Physical Exam Constitutional: no apparent distress, appears nourished Eyes: PERRL, anicteric sclera Ears, Nose, Mouth, Throat: moist mucous membranes, hearing normal Cardiovascular: regular rate and rhythym, no murmur, rub, or gallop Respiratory: no respiratory distress, no rales or rhonchi Gastrointestinal: normoactive bowel sounds, soft, non-tender abdomen Genitourinary: No velasco in urethra Skin: warm, normal color Musculoskeletal: full muscle strength, no muscle tenderness Neurologic: sensation intact bilaterally, No AAOx3 Psychiatric: interacting appropriately, not anxious Lymph, Heme, Immunologic: no cervical LAD ICD10 Worksheet Patient Problems: Problems Problem Status Onset S/P deep brain stimulator placement Acute
[2017-03-10] MEDS ORDERED: HYDROGEN PEROXIDE 236 ML BOTTLE TP ONE (16:30)
--- NOTE | 2017-03-10 16:52 | GPN ---
[f rep st] PROCEDURE NOTE DATE OF PROCEDURE: 03/10/2017 PROCEDURE: Esophagogastroduodenoscopy with percutaneous endoscopic gastrostomy tube placement. Send a carbon copy the care at these Jeremías and myself on polyp found in the colon q.p.m. much of that is postictal myself. INDICATION: Need for long-term feeding in a patient who has history of Parkinson disease, status po st cardiac arrest with failed swallowing study and aspiration. Unclear if he will need it for a num chai of weeks or long-term. INFORMED CONSENT: I had a detailed discussion with the patient's and previously with the patie nt's daughter by phone regarding the procedure alternatives, benefits, and risks including bleeding, perforation, infection, risk of medication. Informed consent was signed and witnessed. COMPLICATIONS: None immediate. MEDICATIONS: Intravenous general anesthesia as per Dr. Mcgrath. Then we also used 1 g of Ancef IV an d 2 cc of 2% lidocaine as local anesthetic. DESCRIPTION OF PROCEDURE: After adequate general anesthetic intubation, patient remains in supine p osition on the endoscopy stretcher. Forward viewing upper endoscope was inserted in the oropharynx and advanced under direct visualization down the esophagus. The esophageal mucosa has mild esophagi tis likely related partially to NG tube. The endoscope was advanced in the stomach. There were no ulcers or masses. There were small polyps that were not removed. The pylorus was normal. The duod enal bulb and sweep were normal. The endoscope was withdrawn back in the stomach, and an area that had good approximation to the skin, transillumination and apposition was chosen. This was just to t he left of the midline 4 fingerbreadths below the ribcage. The area was prepped initially with chlo rhexidine, and then a sterile drape was put over the area that was further sterilized with Betadine solution. A 2 cc injection was performed with the lidocaine to numb the area. I was able to watch my lidocaine needle enter the stomach, and I knew I was in very good position. I then made a 1 cm i ncision with a scalpel in that area. I then inserted the trocar through that watching it enter the stomach with my endoscope. I placed a guidewire through the trocar, grabbed that with my snare via the endoscope, and pulled it out through his mouth. The 20-Croatian pull PEG was then placed attached to the guidewire, pulled down through the mouth through the esophagus, through the gastric and abdo rito wall. I then replaced the endoscope to confirm the button in good position. It was in good p osition, in the distal body proximal antrum. Photograph was obtained. The area was cleaned. A str aight bumper was placed. Antibiotic solution was placed under the bumper, and then gauze was placed over this area. The patient tolerated the procedure well and was transferred to the recovery room in satisfactory condition. IMPRESSION: 1. Mild esophagitis secondary to nasogastric tube. 2. Two small gastric polyps, not biopsied. 3. Normal duodenum. 4. Status post 20-Croatian pull percutaneous endoscopic gastrostomy tube in standard sterile fashion. RECOMMENDATIONS: 1. Can use PEG for meds tonight, not feeds until tomorrow when it is okayed by my partner. 2. PEG to gravity drainage when it is not clamped for medication usage. 3. Turn bumper 90 degrees q. shift. 4. Clean with half-strength hydrogen peroxide around PEG site and the bumper q. shift. 5. Place gauze over bumper, not between bumper and skin. 6. Have my partner, Dr. Groves, check the patient tomorrow morning to okay the PEG for feeds. I will also ask her to loosen that bumper by approximately 0.5 to 1 cm. 7. Continue acid suppression medication. The Pepcid is probably adequate to reduce the inflammatio n in his esophagus. A proton pump inhibitor would certainly be stronger, but it may not be necessar y. 8. Further recommendations to follow the results of above and clinical course. Thank you for allowing me to participate in patient's healthcare. Do not hesitate to call me with a ny questions. Copy requested to: Etienne Zheng MD /[id number]/MODL
[2017-03-10] MEDS ORDERED: LIDOCAINE 2% JELLY 20 ML (UROJECT) ONE (22:16)
[2017-03-10 22:41] LABS: % IMMATURE GRANULYOCYTES 0.8 % (0.0-1.1); ABSOLUTE IMMATURE GRANULOCYTES 0.09 10^3/uL (0.00-0.10); ADD DIFF? NO; ADD MORPH? NO; ADD SCAN? NO; ATYPICAL LYMPHOCYTE FLAG 10 (0-99); FRAGMENT RBC FLAG 0 (0-99); HEMATOCRIT 25.2 % (40.0-51.0); HEMOGLOBIN 8.1 g/dL (13.7-17.5); LEFT SHIFT FLG 0 (0-99); LIPEMIA HEMOLYSIS FLAG 80 (0-99); MEAN CELL HEMOGLOBIN 29.8 pg (27.9-34.1); MEAN CELL HEMOGLOBIN CONCENTR. 32.1 g/dL (32.4-36.7); MEAN CELL VOLUME 92.6 fL (81.5-99.8); MEAN PLATELET VOLUME 9.2 fL (8.7-11.7); PLATELET CLUMPS FLAG 10 (0-99); PLATELET COUNT 413 10^3/uL (150-400); RED BLOOD CELL COUNT 2.72 10^6/uL (4.40-6.38); RED CELL DISTRIBUTION WIDTH 15.2 % (11.5-15.2)
[2017-03-10 22:50] LABS: ANION GAP 8 mEq/L (8-16); CALCIUM 8.5 mg/dL (8.5-10.4); CARBON DIOXIDE 27 mEq/l (22-31); CHLORIDE 101 mEq/L (97-110); CREATININE 0.7 mg/dL (0.7-1.3); GLOMERULAR FILTRATION RATE > 60; GLUCOSE 140 mg/dL (70-100); INR 1.16 (0.83-1.16); POTASSIUM 4.6 mEq/L (3.5-5.2); PROTIME(PATIENT) 14.8 SEC (12.0-15.0); SODIUM 136 mEq/L (134-144)
[2017-03-10 22:51] LABS: APTT 34.3 SEC (23.0-38.0)
[2017-03-11] MEDS: INSULIN REGULAR HUMAN 100 UNIT/ML SC SCH ×6 (00:23→22:07)
[2017-03-11] MEDS: ALBUTEROL 3 ML DEYVIAL IH SCH ×5 (00:40→21:10)
[2017-03-11] MEDS: CARBIDOPA/LEVODOPA 25 MG/100 MG TAB TUBE SCH ×3 (04:58→17:51)
[2017-03-11] MEDS ORDERED: ASPIRIN 81 MG CHEWABLE TAB PO SCH (09:00)
[2017-03-11] MEDS: metFORMIN HCL 500 MG TAB PO SCH (09:18)
[2017-03-11] MEDS: SENNOSIDES 17.6 MG/10 ML UDL PO SCH (10:34)
[2017-03-11] MEDS: LISINOPRIL 5 MG TAB TUBE SCH (10:34)
[2017-03-11] MEDS: PRASUGREL HCL 10 MG TAB TUBE SCH (10:35)
[2017-03-11] MEDS: ATORVASTATIN CALCIUM 40 MG TAB TUBE SCH (10:35)
[2017-03-11] MEDS: AMIODARONE HCL 200 MG TAB TUBE SCH (10:35)
[2017-03-11] MEDS: FAMOTIDINE 20 MG TAB TUBE SCH ×2 (10:35→21:18)
--- NOTE | 2017-03-11 11:46 | HOSPPROG ---
Hospitalist Progress Note Assessment/Plan: Assessment: 82 yo M presents for deep brain stimulator c/b cardiac arrest/ cardiogenic shock, acute systolic CHF exacerbation, NSTEMI, Afib w/ RVR, acute hypoxic respiratory failure * cardiac arrest due to non ST elevation [place] * status post 3 stents to RCA scleral hemorrhage: appreciate ophthalmology eval stable urinary retention: likely secondary to anticholinergic effect of procedural sedation dc velasco now * ischemic cardiomyopathy * Echo normalized * seems like he is getting skein yard drier * will stop Lasix * I wonder if he still needs the Aldactone since his EF has normalized * atrial fibrillation * on Eliquis- on hold * will discuss w cardiology when can restart anticoag * in sinus rhythm now * acute hypoxic respiratory failure * improving * status post diuresis and antibiotics * possible pneumonia * Finished course of Zosyn * dysphagia * failed video swallow * s/p PEG need PEG tube * Parkinson's * will not be able to get DBS stimulator for some time * type 2 diabetes * pretty good sugar control * DVT prophylaxis on hold * disposition * will go to [facility] after PEG tube placed and working Subjective: case d/w hayes, cardiology [employer] REPORTER. tele: no events (interp by me). velasco placed last night for urinary retention Objective: Vital Signs Temp Pulse Resp BP Pulse Ox 36.4 C 68 22 H 148/54 H 96 03/11/17 11:05 03/11/17 11:16 03/11/17 11:16 03/11/17 11:05 03/11/17 11:16 Laboratory Results 03/10/17 22:29 03/10/17 22:29 03/10/17 03/11/17 03/12/17 05:59 05:59 05:59 Intake Total 1710 500 Output Total 300 605 Balance 1410 -105 PT 14.8 SEC (12.0-15.0) 03/10/17 22:29 INR 1.16 (0.83-1.16) 03/10/17 22:29 - Physical Exam Constitutional: no apparent distress, appears nourished, other (confused) Eyes: other (R scleral hemorrhage unchanged) Ears, Nose, Mouth, Throat: moist mucous membranes, hearing normal Cardiovascular: regular rate and rhythym, no murmur, rub, or gallop Respiratory: no respiratory distress, no rales or rhonchi Gastrointestinal: normoactive bowel sounds, soft, non-tender abdomen Genitourinary: no bladder fullness, velasco in urethra Skin: warm, normal color Musculoskeletal: full muscle strength, no muscle tenderness Neurologic: sensation intact bilaterally, No AAOx3 Psychiatric: interacting appropriately Lymph, Heme, Immunologic: no cervical LAD ICD10 Worksheet Patient Problems: Problems Problem Status Onset S/P deep brain stimulator placement Acute
--- NOTE | 2017-03-11 12:29 | SOAPPROG ---
SOAP Progress Note Assessment/Plan: Assessment: Post PEG doing well no signs of bleeding post procedure. PEG tube bumper loosened 1/2 cm. Plan: OK to use PEG tube today. Flush with water before and after each use and at least once a day. Will sign off. 03/11/17 12:26 Subjective: CC dysphagia Post PEG tube denies pain Objective: Vital Signs Temp Pulse Resp BP Pulse Ox 36.4 C 68 22 H 148/54 H 96 03/11/17 11:05 03/11/17 11:16 03/11/17 11:16 03/11/17 11:05 03/11/17 11:16 Laboratory Results 03/10/17 22:29 03/10/17 22:29 03/10/17 03/11/17 03/12/17 05:59 05:59 05:59 Intake Total 1710 500 Output Total 300 605 550 Balance 1410 -105 -550 PT 14.8 SEC (12.0-15.0) 03/10/17 22:29 INR 1.16 (0.83-1.16) 03/10/17 22:29 Physical Exam - Physical Exam General Appearance: alert, no apparent distress Respiratory: lungs clear Abdomen: non-tender (PEG tube snug to skin old blood no active bleeding, bumper adjusted 1/2 cm), soft ICD10 Worksheet Patient Problems: Problems Problem Status Onset S/P deep brain stimulator placement Acute
--- NOTE | 2017-03-11 13:05 | PDCARPN ---
Cardiology Progress Note Chief Complaint: Patient voices no complaints at this time Assessment/Plan: Assessment: 82-year-old male with known history of CAD with previous bypass surgery, cardiac arrest in the setting anesthesia induction, initially had bradycardic arrest. Thrombosis occlusion SVG to RCA. Emergent PCI with FLORENCE implantation to SVG-RCA. Post PCI EF was noted to be 35% which has normalized, echocardiogram done on 03/01/2017 showed LV EF 61%, mild concentric LVH, mild inferior wall hypokinesis LA is mildly dilated, mild aortic sclerosis and mitral annular calcification, mild MR, mild TR, RVSP estimated at 48 mm of mmHg. During hospitalization patient has been noted to have runs of paroxysmal atrial fibrillation. Today he is status post 1 day post PEG tube placement, noticed bleeding around insertion site. He denies of any chest pain or shortness of breath. On continuous cardiac monitoring he remains in sinus rhythm, with no atrial fibrillation, malignant arrhythmias or pauses. BP variation mostly in 120s, with occasional spike to 160. Plan: 1. CAD you with recent cardiac arrest in setting of anesthesia induction: known history of CAD with previous CABG, this hospitalization bradycardic arrest with thrombotic occlusion SVG to RCA. PCI with 3 FLORENCE implantation. Continue on aspirin and Effient. Aspirin dose decreased to 81 mg p.o. q.day. 2. Paroxysmal atrial fibrillation: Currently in sinus, on amiodarone, Low-dose metoprolol, no significant AV block. Eliquis has been on hold for last 3 days for PEG tube placement, will resumed when cleared by GI. 3. Ischemic cardiomyopathy: Recent echocardiogram shows significant improvement with medication management post arrest in PCI. Continue on current dose of metoprolol, lisinopril. Will not be aggressive with metoprolol titration, due to patient noted to have trifascicular block. Aldactone and Lasix has been discontinued, patient appears to be euvolemic. 4. Hyperlipidemia: continue on atorvastatin. 5. Hypertension: BP variation with systolic blood pressure 120s mostly, with occasional spike to 160. No change in medications at this time, will monitor. 6. Subconjunctival hemorrhage: per opthalmology 7. s/p PEG tube: Mild bleeding noted around insertion site. Per nursing staff , DENVER Camargo, has been paged to re-evaluate. 03/11/17 13:06 Subjective: Patient reporting no chest pain, shortness of breath, or palpitations. Cooperative, confused to time and situation Reviewed/Discussed With: family (), hospitalist (Dr Lantigua), other (Dr Reyes) Objective: Vital Signs (8 Hrs) Temp Pulse Resp BP Pulse Ox 03/11/17 11:16 68 22 H 96 03/11/17 11:05 36.4 C 68 24 H 148/54 H 99 03/11/17 06:58 36.6 C 67 13 128/54 H 91 L 03/11/17 05:55 66 14 98 Intake/Output (24 Hrs) 03/10/17 03/11/17 03/12/17 05:59 05:59 05:59 Intake Total 1710 500 Output Total 300 605 550 Balance 1410 -105 -550 Intake: Oral (ml) 0 0 IV Intake (ml) 300 Tube Feeding (ml) 1360 Tube Flush (ml) 350 200 Output: Urine (ml) 300 600 550 Catheter 550 Urinal 300 600 Estimated Blood Loss (ml) 5 Other: Number of Voids Bedside Commode 1 Incontinence 1 1 Number of Stools Bedside Commode 1 Incontinence 1 Bladder Scan Volume (ml) Bedside Commode 285 Result Diagrams: 03/10/17 22:29 03/10/17 22:29 - Physical Exam Constitutional: other (Elderly male, no apparent distress) Ears, Nose, Mouth, Throat: moist mucous membranes Cardiovascular: regular rate and rhythm, no murmurs, no rubs, pulses symmetric bilat, No jugular vein distention, No carotid bruit Peripheral Pulses: 1+: dorsalis-pedis (R), dorsalis-pedis (L), 2+: carotid (R), carotid (L) Respiratory: other (Lungs with expiratory wheeze, no rales or rhonchi noted. No accessory muscle use no intercostal muscle retraction) Gastrointestinal: normoactive bowel sounds Skin: warm, no edema Neurologic: No AAOx3 (AAO x2. Unaware place or situation. Pleasant.) Psychiatric: cooperative, interactive, following commands ICD10 Worksheet Patient Problems: Problems Problem Status Onset S/P deep brain stimulator placement Acute
[2017-03-11] MEDS: METOPROLOL SUCCINATE XR 25 MG TAB PO SCH (13:56)
[2017-03-11] MEDS ORDERED: THROMBIN (BOVINE) 5,000 UNIT VIAL TP ONE (15:49)
[2017-03-11] MEDS: TEARS/DEXTRAN 70/HYPROMELLOSE 15 ML OPHT.BTL EACHEYE PRN (17:11)
[2017-03-11] MEDS: metFORMIN HCL 500 MG TAB TUBE SCH (17:51)
[2017-03-12] MEDS: INSULIN REGULAR HUMAN 100 UNIT/ML SC SCH ×4 (00:58→12:43)
[2017-03-12] MEDS: CARBIDOPA/LEVODOPA 25 MG/100 MG TAB TUBE SCH ×3 (01:00→12:43)
[2017-03-12] MEDS: ALBUTEROL 3 ML DEYVIAL IH SCH ×2 (05:45→11:34)
[2017-03-12] MEDS ORDERED: SENNOSIDES 17.6 MG/10 ML UDL TUBE SCH (09:00)
[2017-03-12] MEDS ORDERED: METOPROLOL TARTRATE 25 MG TAB TUBE SCH (09:00)
[2017-03-12] MEDS ORDERED: ASPIRIN 81 MG CHEWABLE TAB TUBE SCH (09:00)
--- NOTE | 2017-03-12 09:01 | SOAPPROG ---
SOAP Progress Note Assessment/Plan: Assessment/Plan: This is a 82 yr old with complex cardiac issues but currently working on GI concerns CAD: Recent stent to SVG to RCA after bradycardia post anesthesia. He is continued on ASA and Effient. No evidence of ongoing ischemia PAF: Maintains SR post procedure on AMiodarone. If needed from the PEG tube perspective, OK to hold Eliquis for a couple of more days HTN: Stable on current regimen CMP: Has inferior wall [place] but overall EF has improved. 03/12/17 08:57 Subjective: Resting well. No complaints Objective: Vital Signs Temp Pulse Resp BP Pulse Ox 36.6 C 67 16 115/41 L 100 03/12/17 04:00 03/12/17 04:00 03/12/17 04:00 03/12/17 04:00 03/12/17 04:00 Laboratory Results 03/10/17 22:29 03/10/17 22:29 03/11/17 03/12/17 03/13/17 05:59 05:59 05:59 Intake Total 500 1201 Output Total 605 750 Balance -105 451 PT 14.8 SEC (12.0-15.0) 03/10/17 22:29 INR 1.16 (0.83-1.16) 03/10/17 22:29 Physical Exam - Physical Exam General Appearance: alert, no apparent distress EENT: PERRL/EOMI, pharynx normal Neck: non-tender, supple Respiratory: lungs clear, normal breath sounds, No crackles, No rales Cardiac/Chest: regular rate, rhythm, No edema Abdomen: non-tender, soft, No organomegaly Skin: normal color, warm/dry ICD10 Worksheet Patient Problems: Problems Problem Status Onset S/P deep brain stimulator placement Acute
[2017-03-12] MEDS: ATORVASTATIN CALCIUM 40 MG TAB TUBE SCH (09:24)
[2017-03-12] MEDS: LISINOPRIL 5 MG TAB TUBE SCH (09:24)
[2017-03-12] MEDS: metFORMIN HCL 500 MG TAB TUBE SCH (09:25)
[2017-03-12] MEDS: PRASUGREL HCL 10 MG TAB TUBE SCH (09:28)
[2017-03-12] MEDS: AMIODARONE HCL 200 MG TAB TUBE SCH (09:28)
[2017-03-12] MEDS: FAMOTIDINE 20 MG TAB TUBE SCH (09:28)
--- NOTE | 2017-03-12 10:26 | SOAPPROG ---
SOAP Progress Note Assessment/Plan: Assessment: Post PEG placement with bleeding post bumper adjustment yesterday but stopped after application of pressure dressing and did not need further treatment. Did discuss with surgery. No active skin site bleeding today H+H stable OK to use PEG Will sign off 03/12/17 10:23 03/12/17 10:27 Subjective: CC bleeding at skin site last night Post PEG with bleeding at skin site yesterday now resolved. Objective: Vital Signs Temp Pulse Resp BP Pulse Ox 36.8 C 67 24 H 117/55 L 97 03/12/17 08:00 03/12/17 08:00 03/12/17 08:00 03/12/17 08:00 03/12/17 08:00 Laboratory Results 03/10/17 22:29 03/10/17 22:29 03/11/17 03/12/17 03/13/17 05:59 05:59 05:59 Intake Total 500 1201 Output Total 605 750 Balance -105 451 PT 14.8 SEC (12.0-15.0) 03/10/17 22:29 INR 1.16 (0.83-1.16) 03/10/17 22:29 Physical Exam - Physical Exam General Appearance: WD/WN, no apparent distress Respiratory: lungs clear Cardiac/Chest: regular rate, rhythm Abdomen: normal bowel sounds, non-tender (Small amout of old blood no active bleeding at PEG site) ICD10 Worksheet Patient Problems: Problems Problem Status Onset S/P deep brain stimulator placement Acute
--- NOTE | 2017-03-12 11:42 | HOSPPROG ---
Hospitalist Progress Note Assessment/Plan: Assessment: 82 yo M presents for deep brain stimulator c/b cardiac arrest/ cardiogenic shock, acute systolic CHF exacerbation, NSTEMI, Afib w/ RVR, acute hypoxic respiratory failure * cardiac arrest due to non ST elevation RI * status post 3 stents to RCA scleral hemorrhage: appreciate ophthalmology eval stable urinary retention: likely secondary to anticholinergic effect of procedural sedation dc velasco now * ischemic cardiomyopathy * Echo normalized * seems like he is getting grain drier * will stop Lasix * I wonder if he still needs the Aldactone since his EF has normalized * atrial fibrillation * on Eliquis- on hold * will discuss w cardiology when can restart anticoag * in sinus rhythm now * acute hypoxic respiratory failure * improving * status post diuresis and antibiotics * possible pneumonia * Finished course of Zosyn * dysphagia * failed video swallow * s/p PEG need PEG tube * Parkinson's * will not be able to get DBS stimulator for some time * type 2 diabetes * pretty good sugar control * DVT prophylaxis on hold * disposition to inpt rehab today Subjective: PEG bleeding has stopped. case d/w dr tamayo Objective: Vital Signs Temp Pulse Resp BP Pulse Ox 36.8 C 62 16 117/55 L 94 03/12/17 08:00 03/12/17 11:35 03/12/17 11:35 03/12/17 08:00 03/12/17 11:35 Laboratory Results 03/10/17 22:29 03/10/17 22:29 03/11/17 03/12/17 03/13/17 05:59 05:59 05:59 Intake Total 500 1201 Output Total 605 750 Balance -105 451 PT 14.8 SEC (12.0-15.0) 03/10/17 22:29 INR 1.16 (0.83-1.16) 03/10/17 22:29 - Physical Exam Constitutional: no apparent distress, appears nourished Eyes: PERRL, anicteric sclera Ears, Nose, Mouth, Throat: moist mucous membranes, hearing normal Cardiovascular: regular rate and rhythym, no murmur, rub, or gallop Respiratory: no respiratory distress, no rales or rhonchi Gastrointestinal: normoactive bowel sounds, soft, non-tender abdomen Genitourinary: no bladder fullness, No velasco in urethra Skin: warm, normal color Musculoskeletal: full muscle strength, no muscle tenderness Neurologic: AAOx3, sensation intact bilaterally ICD10 Worksheet Patient Problems: Problems Problem Status Onset S/P deep brain stimulator placement Acute
--- NOTE | 2017-03-12 11:55 | PDIAF ---
- Diagnosis Diagnosis: STEMI, cardiac arrest Code Status: Full Code - Medication Management Discharge Medications: Medications to Continue on Transfer Atorvastatin Calcium [Lipitor 40 mg (*)] 40 mg PO HS 01/25/17 [Last Taken ] Carbidopa/Levo Cr 50/200Mg [SINEMET CR 50/200 MG (*)] 3 tab PO DAILY 01/25/17 [ Last Taken 02/21/17 05:00] Carbidopa/Levodopa 25/100Mg [Sinemet 25/100 MG (*)] 1 tab PO BID@01/25/17 [Last Taken 02/21/17 18:00] Herbals/Supplements -Info Only 1 ea PO DAILY 01/25/17 [Last Taken Unknown] Melatonin [Melatonin 3 MG (*)] 10 mg PO HS 01/25/17 [Last Taken 02/20/17] Metoprolol Succinate Xr [Toprol Xl 50 mg (*)] 50 mg PO DAILY 01/25/17 [Last Taken 02/22/17 05:00 t-1] Multivitamins [Multivitamin (*)] 1 each PO DAILY 01/25/17 [Last Taken 02/14/17] Nitroglycerin [Nitrostat 0.4 mg (*)] 0.4 mg SL Q5M PRN 01/25/17 [Last Taken Unknown] Oxybutynin Chloride [OXYBUTYNIN CHLORIDE ER] 5 mg PO HS 01/25/17 [Last Taken ] Pantoprazole Sodium [Protonix 40mg (*)] 40 mg PO DAILY06 01/25/17 [Last Taken ] metFORMIN HCL [Metformin HCl ER] 1,000 mg PO DAILY 01/25/17 [Last Taken 08:00 t-2] rOPINIRole HCL [Requip 1mg (*)] 1 - 2 mg PO HS 01/25/17 [Last Taken 02/21/17] rOPINIRole HCL [Requip XL 6mg] 6 - 12 mg PO DAILY@13 01/25/17 [Last Taken ] Aspirin [Aspirin 81mg (*)] 81 mg PO DAILY 01/31/17 [Last Taken 02/12/17] Amiodarone HCl [Pacerone (*)] 200 mg TUBE DAILY tab 03/12/17 [Last Taken Unknown] Apixaban [Eliquis] 5 mg PO BID #1 tab 03/12/17 [Last Taken Unknown] Prasugrel HCl [Effient 10mg (*)] 10 mg TUBE DAILY tab 03/12/17 [Last Taken Unknown] Tears/Dextran 70/Hypromellose [Natural Balance Tears (*)] 1 drop EACHEYE PRN PRN #0 [id number] 03/12/17 [Last Taken Unknown] Discharge Medications: Refer to the Discharge Home Medication list for PRN reason. - Orders Services needed: Registered Nurse, Certified Research Coordinator, Physical Therapy, Occupational Therapy, Speech Language Pathologist Diet Texture: No Oral Liquids, Non Oral Meds - Follow Up Care Current Providers and Referrals: Etienne Zheng MD [Primary Care Provider] -
--- NOTE | 2017-03-12 12:32 | GDS ---
[f rep st] DISCHARGE SUMMARY DISCHARGE DIAGNOSES: 1. Parkinson disease. 2. Cardiogenic shock, now resolved. 3. Cardiac arrest. 4. ST-elevation myocardial infarction with complete occlusion of the right coronary artery. 5. Dysphagia, requiring PEG tube. 6. PEG tube bleeding. 7. Anemia, multifactorial. 8. Confusion. 9. Scleral hemorrhage seen by Ophthalmology. 10. Diabetes. 11. Hypertension. 12. Restless legs. 13. Atrial fibrillation. PROCEDURES: During this admission were cardiac catheterization with PCI of the saphenous vein graft to the RCA with 3 drug-eluting stents, as well as intra-aortic balloon pump. PROMOTIONS PRODUCER: Cardiac consultation by Dr. Ranjeet Zavala. HOSPITAL COURSE: The patient presented for an elective neurosurgical procedure, deep brain stimulat or generator change. The patient had a cardiac arrest during induction of anesthesia, taken emergen tly to the lab head, where he was found to have significant [place] vessel and bypass vessel coronary artery disease. The culprit lesion was felt to be RCA. He underwent stent placement, was initiall y in the ICU with intra-aortic balloon pump. The patient's Parkinson's continued to be significant during here, and at this point in time, the jonny cintron is unable to swallow safely, nor is he able to care for himself at home. He did come in from home. He is being discharged to inpatient rehab in [place], [place], near the family's home in [facility]. Other pertinent issues during this hospitalization were patient with PEG tube for nutritional suppor t. He was initiated on dual antiplatelet therapy. He was also found to have atrial fibrillation, a nd was initiated on Eliquis, this was held for placement of PEG tube. On the morning of the e patient was noted have a scleral hemorrhage, he was seen by Ophthalmology, who noted intact visual acuity. We are holding his Eliquis. It will be started on the 17 of March. He is taking dual antiplatelet agents because of his recent stent placement. The patient is full code. I have discussed the case with the consultants and the family on the day of discharge. /[id number]/MODL
[2017-03-12 12:55] VITALS: BP 107/41; PULSE 72; RESP 20; TEMP 99.5; O2SAT 93
== END 2017-03-12 14:26 | DRG 270 ==
LOC: F3E 05:46 → F2N 11:06 → F2W 03-04 17:56
PROVIDERS: ADMIT Neurological Surgery; ATTEND Internal Medicine Interventional Cardiology
PROC: 5A0955Z Assistance with Respiratory Ventilation, Greater than 96 Consecutive Hours (ICD-10-PCS; 2017-02-22)
PROC: 0BH17EZ Insertion of Endotracheal Airway into Trachea, Via Natural or Artificial Opening (ICD-10-PCS; 2017-02-22)
PROC: B2111ZZ Fluoroscopy of Multiple Coronary Arteries using Low Osmolar Contrast (ICD-10-PCS; principal; 2017-02-22 07:15)
PROC: 027036Z Dilation of Coronary Artery, One Artery with Three Drug-eluting Intraluminal Devices, Percutaneous Approach (ICD-10-PCS; principal; 2017-02-22 07:15)
PROC: 5A02210 Assistance with Cardiac Output using Balloon Pump, Continuous (ICD-10-PCS; principal; 2017-02-22 07:15)
PROC: 4A023N7 Measurement of Cardiac Sampling and Pressure, Left Heart, Percutaneous Approach (ICD-10-PCS; principal; 2017-02-22 07:15)
PROC: 0B9F8ZZ Drainage of Right Lower Lung Lobe, Via Natural or Artificial Opening Endoscopic (ICD-10-PCS; 2017-02-27)
PROC: 0B9J8ZZ Drainage of Left Lower Lung Lobe, Via Natural or Artificial Opening Endoscopic (ICD-10-PCS; 2017-02-27)
PROC: 02HV33Z Insertion of Infusion Device into Superior Vena Cava, Percutaneous Approach (ICD-10-PCS; 2017-02-28)
PROC: 0D163J4 Bypass Stomach to Cutaneous with Synthetic Substitute, Percutaneous Approach (ICD-10-PCS; 2017-03-10)
DX: I21.11 ST elevation (STEMI) myocardial infarction involving right coronary artery (principal); R57.0 Cardiogenic shock; I25.810 Atherosclerosis of coronary artery bypass graft(s) without angina pectoris; G20 Parkinson's disease; R13.10 Dysphagia, unspecified; D64.9 Anemia, unspecified; H57.8 Other specified disorders of eye and adnexa; E11.9 Type 2 diabetes mellitus without complications; I10 Essential (primary) hypertension; I48.0 Paroxysmal atrial fibrillation; G25.81 Restless legs syndrome; I25.5 Ischemic cardiomyopathy; K20.8 Other esophagitis; K31.7 Polyp of stomach and duodenum; Z79.01 Long term (current) use of anticoagulants; Z95.1 Presence of aortocoronary bypass graft; Z53.09 Procedure and treatment not carried out because of other contraindication
CPT/HCPCS: 81225-90; 82947-QW; 86022-90; 92526-GN; 92610-GN; 92611-GN; 97116-GP; 97163-GP; 97166-GO; 97530-GO; 97530-GP; 97535-GO; C1725; C1751; C1769; C1874; C1887; C9600; C9604; G8978-GP-CK; G8978-GP-CM; G8979-GP-CJ; G8979-GP-CK; G8980-GP-CK; G8987-GO-CN; G8988-GO-CK; G8989-GO-CL; G8996-GN-CM; G8997-GN-CJ; G8997-GN-CM; G8998-GN-CM; J0171; J0282; J0461; J0583; J0690; J1644; J1650; J1815; J1940; J2060; J2370; J2543; J2704; J3010; J3475; P9047; Q9967